=== PATIENT | female | born 1950 | race Caucasian/White ===

== ENCOUNTER → 2018-02-28 12:57 | Outpatient (CLI) | payer MEDICARE, OTHER, SELFPAY ==
--- NOTE | 2018-02-28 | DI.MG.S_ITS ---
BILATERAL DIGITAL SCREENING MAMMOGRAM 3D/2D WITH CAD: 02/28/2018 CLINICAL: Routine screening. Family history of breast cancer. Comparison is made to exams dated: 01/12/2017 mammogram, 12/11/2015 mammogram, and 11/20/2014 mammogram - [facility]. The tissue of both breasts is heterogeneously dense. This may lower the sensitivity of mammography. Current study was also evaluated with a Computer Aided Detection (CAD) system. No significant masses, calcifications, or other findings are seen in either breast. There has been no significant interval change. IMPRESSION: NEGATIVE There is no mammographic evidence of malignancy. A 1 year screening mammogram is recommended. This exam was interpreted at Station ID: [id number]. NOTE: For mammograms, a report in lay terms will be sent to the patient. Approximately 15% of breast malignancies will not be visualized mammographically. In the management of a palpable breast mass, a negative mammogram must not discourage biopsy of a clinically suspicious lesion. Electronically Signed By: Trae rodríguez/gretchen:02/28/2018 15:55:45 copy to: Dulce Maria Duarte letter sent: Normal Exam ACR BI-RADS Category 1: Negative [id number]
== END ==
PROVIDERS: Visit Provider Specialist
DX: Z12.31 Encounter for screening mammogram for malignant neoplasm of breast (principal); Z80.3 Family history of malignant neoplasm of breast
CPT/HCPCS: 77063; 77067

== ENCOUNTER 2018-09-27 15:15 | Outpatient (RCR) | payer MEDICARE, OTHER, SELFPAY ==
--- NOTE | 2018-07-07 15:48 | PT.OIE ---
Current Diagnoses Spondylolisthesis, lumbar region (07/07/18) Spinal stenosis, lumbar region with neurogenic claudication (07/07/18) Other intervertebral disc degeneration, lumbar region (07/07/18) Strain of muscle, fascia and tendon of lower back, subsequent encounter (07/07/18) Past Medical History (Last Updated 05/05/18 @ 13:32 by Shelly Barroso) Abnormally prolonged clotting time (Chronic) Arthritis (Chronic) Bradycardia (Chronic) Cardiac arrhythmia (Chronic ~1971) Complete AV block (Chronic) DDD (degenerative disc disease) (Chronic) Foot pain (Chronic) Lumbar spinal stenosis (Chronic) Macular degeneration (Chronic 1991) PSVT (paroxysmal supraventricular tachycardia) (Chronic) RLS (restless legs syndrome) (Chronic) SA node dysfunction (Chronic) Sinus bradycardia (Chronic) Stenosis of innominate vein (Chronic 2015) Stress incontinence (Chronic) Tinnitus (Chronic) Abnormal Pap smear of cervix (Resolved ~1999) Chicken pox (Resolved) Endometriosis (Resolved) Hemorrhoids (Resolved 1988) History of heavy periods (Resolved) Measles (Resolved) Metatarsal fracture (Resolved 1995) Mumps (Resolved) Painful menstrual periods (Resolved) Rupture of tympanic membrane (Resolved) Past Surgical History (Last Updated 05/05/18 @ 13:04 by Shelly Barroso) Anesthesia (Resolved) Elective replacement indicated for cardiac pacemaker battery at end of lifespan (Resolved 10/2015) Status post arthroscopy (Resolved) Status post laparoscopic cholecystectomy (Resolved 1997) Status post placement of cardiac pacemaker (Resolved 06/2010) Status post placement of implantable loop recorder (Resolved 11/2009) Status post removal of cervix (Resolved) Provider Visit Care Team Role Provider Type Reynold Herman MD Attending Provider Physician Specialty: Orthopedic Surgery Address: [address] [place] [address], [id number] Email: [email or web address] Physical Therapy Initial Evaluation PT-OP-A Visit Information Start: 07/07/18 14:43 Freq: Status: Active Protocol: Document 07/07/18 14:00 (Rec: 07/07/18 15:11 [email or web address]) Out-Patient Physical Therapy Visit Information Visit Information Visit Type Initial Evaluation Visit Start Time 14:00 Visit Stop Time 14:45 Total Visit Minutes 45 Evaluation Information Evaluation Date 07/07/18 PT-OP-B Current Condition Start: 07/07/18 14:43 Freq: Status: Active Protocol: Document 07/07/18 14:00 HH (Rec: 07/07/18 15:11 [email or web address]) Current Condition History of Current Condition Current Complaints Pt c/o chronic LBP and radiating pain to her B LE History of Current Condition Pt is s/p L45 interlaminar epidural steroid injection perfromed by for her chronic LBP on 05/19/18. She cont to c/o LBP 10/09 with distal radiation into B Le. She cannot alma rosa sitting more than 20 minutes without increased pain. Treatment Goals Patient/Caregiver Goals I am going to Pt for strength increase of thighs / arms and lower back I also have difficulty getting off from the floor Current Functional Impairments (Reported) Functional Limitations- Other Difficulty getting off from the floor PT-OP-C Subjective Start: 07/07/18 14:43 Freq: Status: Active Protocol: Document 07/07/18 14:00 (Rec: 07/07/18 15:46 [email or web address]) Patient Questionnaires Other Questionnaire Name and Score Patient did not complete Modified Mswestry LBP OP-PT Pain Assessment Location Bilateral Lower Back Intensity 3 Scale Used Numeric (1 - 10) Description Aching Dull Frequency Constant Radiating Location R leg and L calf Pain Aggravating Factors Sitting PT-OP-J Posture/Palpation/Skin Start: 07/07/18 14:43 Freq: Status: Active Protocol: Document 07/07/18 14:00 HH (Rec: 07/07/18 15:46 [email or web address]) Posture Evaluation Position Standing T-Spine Posture Increased Kyphosis L-Spine Posture Increased Lordosis Shoulder Posture (L) Rounded (R) Rounded Pelvis Posture Anteriorly Tilted Knee Posture (L) Genu Valgus (R) Genu Valgus (L) Ext. Tibial Torsion (R) Ext. Tibial Torsion PT-OP-K Range of Motion Start: 07/07/18 14:43 Freq: Status: Active Protocol: Document 07/07/18 14:00 HH (Rec: 07/07/18 15:11 [email or web address]) Lumbar Spine Range of Motion Lumbar Spine Percentage Testing Position Standing Flexion 50 Extension 75 Rotation Left 100 Rotation Right 100 Lateral Flexion Left 80 Lateral Flexion Right 80 Comments excessive angulations at L4-S1 during standing flexion significant loss of lumbar flexion during standing flexion. Pt demonstrates excessive compensatory hip hinge pattern and increase thoracic flexion during standing flexion. PT-OP-M Strength Start: 07/07/18 14:43 Freq: Status: Active Protocol: Document 07/07/18 14:00 (Rec: 07/07/18 15:11 [email or web address]) Trunk Strength Trunk Manual Muscle Testing Testing Position Sitting Flexion 3+ Fair+ Extension 4- Good- Hip Strength Hip Manual Muscle Testing Right Flexion (L2) 4- Good- Extension (S1) 4- Good- Abduction 4- Good- Adduction 5 Normal Left Flexion (L2) 4- Good- Extension (S1) 4- Good- Abduction 4- Good- Adduction 5 Normal PT-OP-Q Treatments Start: 07/07/18 14:43 Freq: Status: Active Protocol: Document 07/07/18 14:00 HH (Rec: 07/07/18 15:46 [email or web address]) Therapeutic Exercises Supine Exercises 1 Supine Exercise Name supine pelvic tilt with knee bent Side bilateral Reps/Minutes 10 Standing Exercises 2 Standing Exercise Name standing pelvic tilt Side bilateral Reps/Minutes 10 1 Standing Exercise Name standing trunk flexion against wall to emphasis on lumbar flexion Side bilateral Reps/Minutes 10 Other Exercises 1 Other Exercise Name quadruped cat camel Side bilateral Reps/Minutes 10 PT-OP-T Assessment and Plan Start: 07/07/18 14:43 Freq: Status: Active Protocol: Document 07/07/18 14:00 (Rec: 07/07/18 15:11 [email or web address]) Physical Therapy Assessment Rehab Potential Rehabilitation Potential Good Goals Two Impairment Decreased overall hip strength Short Term Goal (STG) Increase hip ext and abd by 1/ 2 MMT grade STG Duration 3 weeks Farm Worker Goal (LTG) Increase hip ext and abd by 1 full MMT grade LTG Duration 6 weeks One Impairment decreased lumbar ROM Short Term Goal (STG) Increase lumbar ROM by 20 % during standing flexion test. STG Duration 3 weeks Farm Worker Goal (LTG) increase lumbar ROM by 40% during standing flexion test LTG Duration 6 weeks Assessment Summary Assessment Pt is a 68 yo female who c/o chronic back pain along with radiating pain to B LE. Pt stated her symptoms get worse primarily after sitting for more than 20 minutes such as driving and watching TV on her couch. Pt received 2 epidural injections within the past year and the 2nd shot was not as helpful as the first shot. Upon assessment, Pt demonstrated a significant anterior pelvic tilt in standing position with significant excessive lumbar paraspinals activation. Pt also demonstrated diffculties performing pelvic tilt. Pt presented insufficient lumbar flexion who used excessive compensatory thoracic flexion and hip flexion during standing flexion. Pt was instructed to perform cat camel followed by abdominal brace with standing flexion against the wall. She was then able to engage lumbar flexion who also stated I feel a nice stretch at lower back and it feels good. Pt demosntrates an overall lack of lumbar neuromuscular control, ROM and strength. Physical Therapy Plan Frequency and Duration Frequency of Treatment 2x/Week Duration of Treatment 6 weeks Plan of Care Start Date 07/07/18 Plan of Care End Date 08/19/18 Therapeutic Interventions Therapeutic Interventions Home Exercise Program Joint Mobilizations Manual Therapy Neuromuscular Re-education Soft Tissue Mobilization Therapeutic Exercises Next Visit Focus/Plan Next Visit Plan hollow body hold Cat camel with weight ball on top of thoracic region to avoid thoracic movement post pelvic tilt followed by standing flexion with 5-10 lbs weight resisted hip abduction resisted hip extension
--- NOTE | 2018-07-12 18:36 | PT.OTN ---
Current Diagnoses Spondylolisthesis, lumbar region (07/12/18) Spinal stenosis, lumbar region with neurogenic claudication (07/12/18) Other intervertebral disc degeneration, lumbar region (07/12/18) Strain of muscle, fascia and tendon of lower back, subsequent encounter (07/12/18) Physical Therapy Treatment Note PT-OP-A Visit Information Start: 07/07/18 14:43 Freq: Status: Active Protocol: Document 07/12/18 13:45 HH (Rec: 07/12/18 18:34 [email or web address]) Out-Patient Physical Therapy Visit Information Visit Information Visit Type Treatment Note Visit Note Pt reports I felt really good on the day that i came to therapy. My back pain was very managed that day and I was able to sit and stand longer without c/o. However, my back starts hurting the day after and cat camel into extension aggravates my back pain sometimes. Standing flexion exercise does give me a good stretch at the lower back. I also feel my legs are getting tight from time to time. Visit Start Time 13:45 Visit Stop Time 14:30 Total Visit Minutes 45 Visit Number 2 Number of ELECTRICAL APPLIANCE SERVICER Visits 0 PT-OP-B Current Condition Start: 07/07/18 14:43 Freq: Status: Active Protocol: Document 07/07/18 14:00 HH (Rec: 07/07/18 15:11 HH [email or web address]) Current Condition History of Current Condition Current Complaints Pt c/o chronic LBP and radiating pain to her B LE History of Current Condition Pt is s/p L45 interlaminar epidural steroid injection perfromed by for her chronic LBP on 05/19/18. She cont to c/o LBP 10/09 with distal radiation into B Le. She cannot alma rosa sitting more than 20 minutes without increased pain. Treatment Goals Patient/Caregiver Goals I am going to Pt for strength increase of thighs / arms and lower back I also have difficulty getting off from the floor Current Functional Impairments (Reported) Functional Limitations- Other Difficulty getting off from the floor PT-OP-C Subjective Start: 07/07/18 14:43 Freq: Status: Active Protocol: Document 07/12/18 13:45 HH (Rec: 07/12/18 18:34 [email or web address]) OP-PT Pain Assessment Pain Assessment Grid Paper Pain Assessment Grid Completed No Location Bilateral Lower Back Intensity 4 Scale Used Numeric (1 - 10) Description Dull PT-OP-J Posture/Palpation/Skin Start: 07/07/18 14:43 Freq: Status: Active Protocol: Document 07/07/18 14:00 HH (Rec: 07/07/18 15:46 HH [email or web address]) Posture Evaluation Position Standing T-Spine Posture Increased Kyphosis L-Spine Posture Increased Lordosis Shoulder Posture (L) Rounded (R) Rounded Pelvis Posture Anteriorly Tilted Knee Posture (L) Genu Valgus (R) Genu Valgus (L) Ext. Tibial Torsion (R) Ext. Tibial Torsion PT-OP-K Range of Motion Start: 07/07/18 14:43 Freq: Status: Active Protocol: Document 07/07/18 14:00 HH (Rec: 07/07/18 15:11 HH [email or web address]) Lumbar Spine Range of Motion Lumbar Spine Percentage Testing Position Standing Flexion 50 Extension 75 Rotation Left 100 Rotation Right 100 Lateral Flexion Left 80 Lateral Flexion Right 80 Comments excessive angulations at L4-S1 during standing flexion significant loss of lumbar flexion during standing flexion. Pt demonstrates excessive compensatory hip hinge pattern and increase thoracic flexion during standing flexion. PT-OP-M Strength Start: 07/07/18 14:43 Freq: Status: Active Protocol: Document 07/07/18 14:00 HH (Rec: 07/07/18 15:11 [email or web address]) Trunk Strength Trunk Manual Muscle Testing Testing Position Sitting Flexion 3+ Fair+ Extension 4- Good- Hip Strength Hip Manual Muscle Testing Right Flexion (L2) 4- Good- Extension (S1) 4- Good- Abduction 4- Good- Adduction 5 Normal Left Flexion (L2) 4- Good- Extension (S1) 4- Good- Abduction 4- Good- Adduction 5 Normal PT-OP-Q Treatments Start: 07/07/18 14:43 Freq: Status: Active Protocol: Document 07/12/18 13:45 HH (Rec: 07/12/18 18:34 HH [email or web address]) Therapeutic Exercises Supine Exercises 2 Supine Exercise Name deadbug Reps/Minutes 5 secs hold Comments requires v.c to engage abdominal muscles. 1 Supine Exercise Name supine resisted hip abduction with B knee bent Side bilateral Standing Exercises 1 Standing Exercise Name standing lumbar flexion Comments requires v.c. to engage abdominal muscles Other Exercises 1 Other Exercise Name cat camel Comments neutral to lumbar flexion Neuro Re-Education Treatment Other Activities 1 Details seated resisted trunk extension Comments MET at painful range PT-OP-T Assessment and Plan Start: 07/07/18 14:43 Freq: Status: Active Protocol: Document 07/12/18 13:45 HH (Rec: 07/12/18 18:34 HH [email or web address]) Physical Therapy Assessment Progress Towards Goals Progress Towards Goals Progressing Toward Goals Assessment Summary Assessment Pt demonstrates improved lumbopelvic pelvic control by being able to perform standing pelvic tilt. However, pt reports symptoms tend to get worse with back extension. Pt is instructed to perform deadbug to improve trunk stabilization who requires constant v.c. and t.c. to engage abdominal muscles and initiate posterior pelvic tilt . pt also demonstrates significant difficulty engaging gluteal musculature for her new HEP (seated resisted hip abduction and supine hip abduction). Modification has made to use supine wide hip abduction with resistance band at B knee . This presentation possibly resulted from her chronic knock knee gait pattern along with internal rotated B hip, which inhibits B gluteal muscles activation during mobility. At the end of tx sessions, Pt reports decrease tightness of her B LEs during amb and decreased LBP during trunk movements. Physical Therapy Plan Next Visit Focus/Plan Next Note Type Treatment Note Next Visit Plan Cont trunk stabilization training hip ER, abd, ext therex. monitor pt's gluteal activation. hip stabilization training.
--- NOTE | 2018-07-14 18:17 | PT.OTN ---
Current Diagnoses Spondylolisthesis, lumbar region (07/14/18) Spinal stenosis, lumbar region with neurogenic claudication (07/14/18) Other intervertebral disc degeneration, lumbar region (07/14/18) Strain of muscle, fascia and tendon of lower back, subsequent encounter (07/14/18) Physical Therapy Treatment Note PT-OP-A Visit Information Start: 07/07/18 14:43 Freq: Status: Active Protocol: Document 07/14/18 16:00 HH (Rec: 07/14/18 18:17 [email or web address]) Out-Patient Physical Therapy Visit Information Visit Information Visit Type Treatment Note Visit Start Time 16:00 Visit Stop Time 16:45 Total Visit Minutes 45 Visit Number 3 Number of ARMHOLE BASTER HAND Visits 0 PT-OP-B Current Condition Start: 07/07/18 14:43 Freq: Status: Active Protocol: Document 07/07/18 14:00 HH (Rec: 07/07/18 15:11 [email or web address]) Current Condition History of Current Condition Current Complaints Pt c/o chronic LBP and radiating pain to her B LE History of Current Condition Pt is s/p L45 interlaminar epidural steroid injection perfromed by for her chronic LBP on 05/19/18. She cont to c/o LBP 10/09 with distal radiation into B Le. She cannot alma rosa sitting more than 20 minutes without increased pain. Treatment Goals Patient/Caregiver Goals I am going to Pt for strength increase of thighs / arms and lower back I also have difficulty getting off from the floor Current Functional Impairments (Reported) Functional Limitations- Other Difficulty getting off from the floor PT-OP-C Subjective Start: 07/07/18 14:43 Freq: Status: Active Protocol: Document 07/14/18 16:00 HH (Rec: 07/14/18 18:17 [email or web address]) OP-PT Subjective Patient Comments Patient Comments Pt reports I feel great since last vist and my back pain does not bother me. I've been doing all my exercises and aware of abdominal brace while standing for a long time. However, i have difficulty doing the supine hip abduction cause i couldnt get my hip muscles working like we did in the clinic. Patient Reported Progress Improving PT-OP-J Posture/Palpation/Skin Start: 07/07/18 14:43 Freq: Status: Active Protocol: Document 07/07/18 14:00 HH (Rec: 07/07/18 15:46 [email or web address]) Posture Evaluation Position Standing T-Spine Posture Increased Kyphosis L-Spine Posture Increased Lordosis Shoulder Posture (L) Rounded (R) Rounded Pelvis Posture Anteriorly Tilted Knee Posture (L) Genu Valgus (R) Genu Valgus (L) Ext. Tibial Torsion (R) Ext. Tibial Torsion PT-OP-K Range of Motion Start: 07/07/18 14:43 Freq: Status: Active Protocol: Document 07/07/18 14:00 HH (Rec: 07/07/18 15:11 [email or web address]) Lumbar Spine Range of Motion Lumbar Spine Percentage Testing Position Standing Flexion 50 Extension 75 Rotation Left 100 Rotation Right 100 Lateral Flexion Left 80 Lateral Flexion Right 80 Comments excessive angulations at L4-S1 during standing flexion significant loss of lumbar flexion during standing flexion. Pt demonstrates excessive compensatory hip hinge pattern and increase thoracic flexion during standing flexion. PT-OP-M Strength Start: 07/07/18 14:43 Freq: Status: Active Protocol: Document 07/07/18 14:00 (Rec: 07/07/18 15:11 [email or web address]) Trunk Strength Trunk Manual Muscle Testing Testing Position Sitting Flexion 3+ Fair+ Extension 4- Good- Hip Strength Hip Manual Muscle Testing Right Flexion (L2) 4- Good- Extension (S1) 4- Good- Abduction 4- Good- Adduction 5 Normal Left Flexion (L2) 4- Good- Extension (S1) 4- Good- Abduction 4- Good- Adduction 5 Normal PT-OP-Q Treatments Start: 07/07/18 14:43 Freq: Status: Active Protocol: Document 07/14/18 16:00 (Rec: 07/14/18 18:17 [email or web address]) Therapeutic Exercises Standing Exercises 3 Standing Exercise Name standing trunk flexion with DF Side bilateral Reps/Minutes 10 2 Standing Exercise Name bilateral hip ER with green band in standing Side bilateral Reps/Minutes 10 1 Standing Exercise Name R hip extension with abdominal brace Side right Reps/Minutes 10 Manual Therapy Treatment Soft Tissue Mobilization active release Body Location hip abductors Mobilization Type Cross-Friction Intensity/Depth Superficial Body Position Prone Comments with hip ER 1 Body Location B hip adductors Mobilization Type Cross-Friction Sustained Pressure Intensity/Depth Superficial Body Position Prone Comments Significant tenderness with pressure PT-OP-T Assessment and Plan Start: 07/07/18 14:43 Freq: Status: Active Protocol: Document 07/14/18 16:00 (Rec: 07/14/18 18:17 [email or web address]) Physical Therapy Assessment Progress Towards Goals Progress Towards Goals Progressing Toward Goals Assessment Summary Assessment Pt presents significant improved lumbo-pelvic control in standing position who is able to perform full range of pelvic tilt. pt also demonstrates improved curvature of lumbar flexion during trunk flexion. In addition, pt presents significant tenderness to pressure at bilateral hip adductors due to her knock knee posture which inhibits activation of hip stabilizers and overload her lumbar paraspinals. New HEP is given to pt including: standing R hip extension with abdominal brace, standing B hip ER with green band. Cont to POC to address pt's hip abductors weakness, decreased lumbar ROM control and postural malalignment Physical Therapy Plan Therapeutic Interventions Therapeutic Interventions Home Exercise Program Manual Therapy Neuromuscular Re-education Soft Tissue Mobilization Taping Therapeutic Exercises Next Visit Focus/Plan Next Note Type Treatment Note Next Visit Plan cont hip abductors strengthening neuro mohini on B hip ER control lumbar ROM lumbar iso hold/ isotonic strengthening.
--- NOTE | 2018-07-19 16:50 | PT.OTN ---
Current Diagnoses Spondylolisthesis, lumbar region (07/19/18) Spinal stenosis, lumbar region with neurogenic claudication (07/19/18) Other intervertebral disc degeneration, lumbar region (07/19/18) Strain of muscle, fascia and tendon of lower back, subsequent encounter (07/19/18) Physical Therapy Treatment Note PT-OP-A Visit Information Start: 07/07/18 14:43 Freq: Status: Active Protocol: Document 07/19/18 13:45 HH (Rec: 07/19/18 16:50 [email or web address]) Out-Patient Physical Therapy Visit Information Visit Information Visit Type Treatment Note Visit Start Time 13:45 Visit Stop Time 14:30 Total Visit Minutes 45 Visit Number 4 Number of SETTER UP Visits 0 PT-OP-B Current Condition Start: 07/07/18 14:43 Freq: Status: Active Protocol: Document 07/07/18 14:00 HH (Rec: 07/07/18 15:11 HH [email or web address]) Current Condition History of Current Condition Current Complaints Pt c/o chronic LBP and radiating pain to her B LE History of Current Condition Pt is s/p L45 interlaminar epidural steroid injection perfromed by for her chronic LBP on 05/19/18. She cont to c/o LBP 10/09 with distal radiation into B Le. She cannot alma rosa sitting more than 20 minutes without increased pain. Treatment Goals Patient/Caregiver Goals I am going to Pt for strength increase of thighs / arms and lower back I also have difficulty getting off from the floor Current Functional Impairments (Reported) Functional Limitations- Other Difficulty getting off from the floor PT-OP-C Subjective Start: 07/07/18 14:43 Freq: Status: Active Protocol: Document 07/19/18 13:45 HH (Rec: 07/19/18 16:50 [email or web address]) OP-PT Subjective Patient Comments Patient Comments Pt reports I felt great the past two weeks, my back and knee didnt bother me as much and i can sit longer than 20 minutes now. I've been doing all my exercises. However, my back pain gets worse during the weekend because i was sitting in the car for 4 hours a day. Patient Reported Progress Improving OP-PT Pain Assessment Location Bilateral Lower Back Intensity 2 Scale Used Numeric (1 - 10) Description Dull Frequency Intermittent Pain Aggravating Factors Sitting PT-OP-J Posture/Palpation/Skin Start: 07/07/18 14:43 Freq: Status: Active Protocol: Document 07/07/18 14:00 HH (Rec: 07/07/18 15:46 HH [email or web address]) Posture Evaluation Position Standing T-Spine Posture Increased Kyphosis L-Spine Posture Increased Lordosis Shoulder Posture (L) Rounded (R) Rounded Pelvis Posture Anteriorly Tilted Knee Posture (L) Genu Valgus (R) Genu Valgus (L) Ext. Tibial Torsion (R) Ext. Tibial Torsion PT-OP-K Range of Motion Start: 07/07/18 14:43 Freq: Status: Active Protocol: Document 07/07/18 14:00 HH (Rec: 07/07/18 15:11 HH [email or web address]) Lumbar Spine Range of Motion Lumbar Spine Percentage Testing Position Standing Flexion 50 Extension 75 Rotation Left 100 Rotation Right 100 Lateral Flexion Left 80 Lateral Flexion Right 80 Comments excessive angulations at L4-S1 during standing flexion significant loss of lumbar flexion during standing flexion. Pt demonstrates excessive compensatory hip hinge pattern and increase thoracic flexion during standing flexion. PT-OP-M Strength Start: 07/07/18 14:43 Freq: Status: Active Protocol: Document 07/07/18 14:00 HH (Rec: 07/07/18 15:11 [email or web address]) Trunk Strength Trunk Manual Muscle Testing Testing Position Sitting Flexion 3+ Fair+ Extension 4- Good- Hip Strength Hip Manual Muscle Testing Right Flexion (L2) 4- Good- Extension (S1) 4- Good- Abduction 4- Good- Adduction 5 Normal Left Flexion (L2) 4- Good- Extension (S1) 4- Good- Abduction 4- Good- Adduction 5 Normal PT-OP-Q Treatments Start: 07/07/18 14:43 Freq: Status: Active Protocol: Document 07/19/18 13:45 (Rec: 07/19/18 16:50 [email or web address]) Therapeutic Exercises Prone Exercises 1 Prone Exercise Name child pose with hip abduction Side bilateral Reps/Minutes 4 Comments with abdominal brace Standing Exercises 4 Standing Exercise Name crab walk Side bilateral Resistance green band Reps/Minutes 50 feet Comments focus on hip ER and Abd 2 Standing Exercise Name standing pelvic tilt Side bilateral Reps/Minutes 2 1 Standing Exercise Name standing lumbar flexion Side bilateral Equipment Used 7 lbs dumbbell Reps/Minutes 5 Comments v.c. for abdominal brace Manual Therapy Treatment Soft Tissue Mobilization 1 Body Location B hip adductors Mobilization Type Cross-Friction Sustained Pressure Intensity/Depth Superficial Body Position Supine Comments Significant tenderness with pressure PT-OP-T Assessment and Plan Start: 07/07/18 14:43 Freq: Status: Active Protocol: Document 07/19/18 13:45 HH (Rec: 07/19/18 16:50 HH [email or web address]) Physical Therapy Assessment Progress Towards Goals Progress Towards Goals Progressing Toward Goals Progress Comments pt compliant to HEP and presents improved lumbar segmental control with reduced pain. Assessment Summary Assessment Pt is compliant to HEP and demonstrates improved lumbar segmental control during trunk flexion and pelvic tilt along with reduced pain. Pt also reports reduced tenderness at B hip adductors with pressure. New HEP is given to facilitate hip ER and abd during amb, along with trunk flexion with 8lbs dumbbell to increase lumbar segmental mobility. Cont POC with hip abd strengthen, lengthening of hip adductors and increase lumbar motor control. Physical Therapy Plan Therapeutic Interventions Therapeutic Interventions Home Exercise Program Manual Therapy Neuromuscular Re-education Soft Tissue Mobilization Taping Therapeutic Exercises Next Visit Focus/Plan Next Note Type Treatment Note Next Visit Plan cont hip abductors strengthening abdominal strengthening neuro mohini on B hip ER control lumbar ROM lumbar iso hold/ isotonic strengthening.
--- NOTE | 2018-07-21 15:30 | PT.OTN ---
Current Diagnoses Spondylolisthesis, lumbar region (07/21/18) Spinal stenosis, lumbar region with neurogenic claudication (07/21/18) Other intervertebral disc degeneration, lumbar region (07/21/18) Strain of muscle, fascia and tendon of lower back, subsequent encounter (07/21/18) Physical Therapy Treatment Note PT-OP-A Visit Information Start: 07/07/18 14:43 Freq: Status: Active Protocol: Document 07/21/18 13:45 HH (Rec: 07/21/18 15:30 HH [email or web address]) Out-Patient Physical Therapy Visit Information Visit Information Visit Type Treatment Note Visit Start Time 13:45 Visit Stop Time 14:30 Total Visit Minutes 45 Visit Number 5 Number of PROP AND SCENERY MAKER Visits 0 PT-OP-B Current Condition Start: 07/07/18 14:43 Freq: Status: Active Protocol: Document 07/07/18 14:00 HH (Rec: 07/07/18 15:11 HH [email or web address]) Current Condition History of Current Condition Current Complaints Pt c/o chronic LBP and radiating pain to her B LE History of Current Condition Pt is s/p L45 interlaminar epidural steroid injection perfromed by for her chronic LBP on 05/19/18. She cont to c/o LBP 10/09 with distal radiation into B Le. She cannot alma rosa sitting more than 20 minutes without increased pain. Treatment Goals Patient/Caregiver Goals I am going to Pt for strength increase of thighs / arms and lower back I also have difficulty getting off from the floor Current Functional Impairments (Reported) Functional Limitations- Other Difficulty getting off from the floor PT-OP-C Subjective Start: 07/07/18 14:43 Freq: Status: Active Protocol: Document 07/21/18 13:45 HH (Rec: 07/21/18 15:30 HH [email or web address]) OP-PT Subjective Patient Comments Patient Comments Pt states I feel really lately and I dont have any back pain and I've been doing all my HEP. My knee pain has been getting a lot better too. Patient Reported Progress Improving PT-OP-J Posture/Palpation/Skin Start: 07/07/18 14:43 Freq: Status: Active Protocol: Document 07/07/18 14:00 HH (Rec: 07/07/18 15:46 HH [email or web address]) Posture Evaluation Position Standing T-Spine Posture Increased Kyphosis L-Spine Posture Increased Lordosis Shoulder Posture (L) Rounded (R) Rounded Pelvis Posture Anteriorly Tilted Knee Posture (L) Genu Valgus (R) Genu Valgus (L) Ext. Tibial Torsion (R) Ext. Tibial Torsion PT-OP-K Range of Motion Start: 07/07/18 14:43 Freq: Status: Active Protocol: Document 07/07/18 14:00 HH (Rec: 07/07/18 15:11 HH [email or web address]) Lumbar Spine Range of Motion Lumbar Spine Percentage Testing Position Standing Flexion 50 Extension 75 Rotation Left 100 Rotation Right 100 Lateral Flexion Left 80 Lateral Flexion Right 80 Comments excessive angulations at L4-S1 during standing flexion significant loss of lumbar flexion during standing flexion. Pt demonstrates excessive compensatory hip hinge pattern and increase thoracic flexion during standing flexion. PT-OP-M Strength Start: 07/07/18 14:43 Freq: Status: Active Protocol: Document 07/07/18 14:00 HH (Rec: 07/07/18 15:11 HH [email or web address]) Trunk Strength Trunk Manual Muscle Testing Testing Position Sitting Flexion 3+ Fair+ Extension 4- Good- Hip Strength Hip Manual Muscle Testing Right Flexion (L2) 4- Good- Extension (S1) 4- Good- Abduction 4- Good- Adduction 5 Normal Left Flexion (L2) 4- Good- Extension (S1) 4- Good- Abduction 4- Good- Adduction 5 Normal PT-OP-Q Treatments Start: 07/07/18 14:43 Freq: Status: Active Protocol: Document 07/21/18 13:45 HH (Rec: 07/21/18 15:30 HH [email or web address]) Therapeutic Exercises Sitting Exercises seated scifi press Resistance level 1 Reps/Minutes 5 mins Comments cues for neutral foot placement seated hip abduction machine Resistance 30 lbs Equipment Used machine Reps/Minutes 5 mins Standing Exercises standing resisted hip extension Side bilateral Resistance manual resistance Reps/Minutes 5 mins 4 Standing Exercise Name crab walk Side bilateral Resistance green band Reps/Minutes 50 feet Comments focus on hip ER and Abd Manual Therapy Treatment Soft Tissue Mobilization tibial IR with hip ER Body Location movement with mobilizatoins Body Position Supine Comments active hip ER with manual tibial IR active release Body Location hip adductors Mobilization Type Cross-Friction Intensity/Depth Moderate Body Position Supine PT-OP-T Assessment and Plan Start: 07/07/18 14:43 Freq: Status: Active Protocol: Document 07/21/18 13:45 HH (Rec: 07/21/18 15:30 HH [email or web address]) Physical Therapy Assessment Progress Towards Goals Progress Towards Goals Progressing Toward Goals Assessment Summary Assessment Pt presents to clinic with no c/o LBP and reduced bilateral knee pain. Pt compliant to HEP . During tx session, pt cont demonstrates difficulty engaging gluteal muscles during squating, resisted hip ER. Pt reports increased gluteal activation during standing resisted hip extension. Pt also requires constant cues to facilitate hip ER during therex (to prevent knock knee). Introduced scifi leg press for overall LE strengthening today. Physical Therapy Plan Next Visit Focus/Plan Next Note Type Treatment Note Next Visit Plan Cont hip abd and ER strengthening, STM at bilateral hip adductors, NM mohini on hip ER and tibial IR. aerobic training
--- NOTE | 2018-07-28 15:47 | PT.OTN ---
Current Diagnoses Spondylolisthesis, lumbar region (07/28/18) Spinal stenosis, lumbar region with neurogenic claudication (07/28/18) Other intervertebral disc degeneration, lumbar region (07/28/18) Strain of muscle, fascia and tendon of lower back, subsequent encounter (07/28/18) Physical Therapy Treatment Note PT-OP-A Visit Information Start: 07/07/18 14:43 Freq: Status: Active Protocol: Document 07/28/18 15:36 HH (Rec: 07/28/18 15:46 [email or web address]) Out-Patient Physical Therapy Visit Information Visit Information Visit Type Treatment Note Visit Start Time 13:45 Visit Stop Time 14:30 Total Visit Minutes 45 Visit Number 6 Number of WIRE SPOOLER Visits 0 PT-OP-B Current Condition Start: 07/07/18 14:43 Freq: Status: Active Protocol: Document 07/07/18 14:00 HH (Rec: 07/07/18 15:11 HH [email or web address]) Current Condition History of Current Condition Current Complaints Pt c/o chronic LBP and radiating pain to her B LE History of Current Condition Pt is s/p L45 interlaminar epidural steroid injection perfromed by for her chronic LBP on 05/19/18. She cont to c/o LBP 10/09 with distal radiation into B Le. She cannot alma rosa sitting more than 20 minutes without increased pain. Treatment Goals Patient/Caregiver Goals I am going to Pt for strength increase of thighs / arms and lower back I also have difficulty getting off from the floor Current Functional Impairments (Reported) Functional Limitations- Other Difficulty getting off from the floor PT-OP-C Subjective Start: 07/07/18 14:43 Freq: Status: Active Protocol: Document 07/28/18 15:36 HH (Rec: 07/28/18 15:46 HH [email or web address]) OP-PT Subjective Patient Comments Patient Comments Pt reports she does not have any back pain lately and she is able to touch the floor with her hands without any aggravation. Pt is satisfied with her current trunk control and mobility. Pt is compliant to HEP. Patient Reported Progress Improving PT-OP-J Posture/Palpation/Skin Start: 07/07/18 14:43 Freq: Status: Active Protocol: Document 07/07/18 14:00 HH (Rec: 07/07/18 15:46 HH [email or web address]) Posture Evaluation Position Standing T-Spine Posture Increased Kyphosis L-Spine Posture Increased Lordosis Shoulder Posture (L) Rounded (R) Rounded Pelvis Posture Anteriorly Tilted Knee Posture (L) Genu Valgus (R) Genu Valgus (L) Ext. Tibial Torsion (R) Ext. Tibial Torsion PT-OP-K Range of Motion Start: 07/07/18 14:43 Freq: Status: Active Protocol: Document 07/07/18 14:00 HH (Rec: 07/07/18 15:11 HH [email or web address]) Lumbar Spine Range of Motion Lumbar Spine Percentage Testing Position Standing Flexion 50 Extension 75 Rotation Left 100 Rotation Right 100 Lateral Flexion Left 80 Lateral Flexion Right 80 Comments excessive angulations at L4-S1 during standing flexion significant loss of lumbar flexion during standing flexion. Pt demonstrates excessive compensatory hip hinge pattern and increase thoracic flexion during standing flexion. PT-OP-M Strength Start: 07/07/18 14:43 Freq: Status: Active Protocol: Document 07/07/18 14:00 HH (Rec: 07/07/18 15:11 [email or web address]) Trunk Strength Trunk Manual Muscle Testing Testing Position Sitting Flexion 3+ Fair+ Extension 4- Good- Hip Strength Hip Manual Muscle Testing Right Flexion (L2) 4- Good- Extension (S1) 4- Good- Abduction 4- Good- Adduction 5 Normal Left Flexion (L2) 4- Good- Extension (S1) 4- Good- Abduction 4- Good- Adduction 5 Normal PT-OP-Q Treatments Start: 07/07/18 14:43 Freq: Status: Active Protocol: Document 07/28/18 15:36 HH (Rec: 07/28/18 15:46 [email or web address]) Therapeutic Exercises Sitting Exercises seated hip abduction machine Resistance 30 lbs Equipment Used machine Reps/Minutes 8 times Standing Exercises isometric hold for low back Standing Exercise Name 10 lbs ball away from body Reps/Minutes 3 secs hold on top x 8 reps x 2 Comments athletic position with B shoulder flexion with 10 lbs deadlift Standing Exercise Name deadlift Resistance 20 lbs dumbbell Reps/Minutes 8 times x 3 rounds Comments deadlift from 5 inch box to full extension crab walk with green band on knees Resistance green band at knees Comments 20 feet x 4 Manual Therapy Treatment Soft Tissue Mobilization active release Body Location hip adductors Mobilization Type Cross-Friction Intensity/Depth Moderate Body Position Supine PT-OP-T Assessment and Plan Start: 07/07/18 14:43 Freq: Status: Active Protocol: Document 07/28/18 13:45 HH (Rec: 07/28/18 15:46 HH [email or web address]) Physical Therapy Assessment Progress Towards Goals Progress Towards Goals Progressing Toward Goals Progress Comments pt compliant to HEP and presents improved lumbar segmental control without pain . Assessment Summary Assessment Pt progress very well with PT who presents significant improvements in lumbar segmental control and B hip abductors strength. pt is currently compliant to all HEP and aware of her posture during functional activities. Pt demonstrates good understanding of pelvic position and improved engagement of gluteal muscles today. Progress to lumbo- pelvic strengthening therex with functional activities. Physical Therapy Plan Therapeutic Interventions Therapeutic Interventions Home Exercise Program Manual Therapy Neuromuscular Re-education Soft Tissue Mobilization Taping Therapeutic Exercises Next Visit Focus/Plan Next Note Type Treatment Note Next Visit Plan progress to lumbopelvic strengthening ex as alma rosa with functional activities ( deadlift, front squat, box squat, weighted object carry) add cardio training as alma rosa
--- NOTE | 2018-08-04 15:19 | PT.OTN ---
Current Diagnoses Spondylolisthesis, lumbar region (08/04/18) Spinal stenosis, lumbar region with neurogenic claudication (08/04/18) Other intervertebral disc degeneration, lumbar region (08/04/18) Strain of muscle, fascia and tendon of lower back, subsequent encounter (08/04/18) Physical Therapy Treatment Note PT-OP-A Visit Information Start: 07/07/18 14:43 Freq: Status: Active Protocol: Document 08/04/18 13:45 HH (Rec: 08/04/18 15:18 HH [email or web address]) Out-Patient Physical Therapy Visit Information Visit Information Visit Type Treatment Note Visit Start Time 13:45 Visit Stop Time 14:30 Total Visit Minutes 45 Visit Number 7 Number of SIGNALS INTELLIGENCE ANALYST Visits 0 PT-OP-B Current Condition Start: 07/07/18 14:43 Freq: Status: Active Protocol: Document 07/07/18 14:00 HH (Rec: 07/07/18 15:11 HH [email or web address]) Current Condition History of Current Condition Current Complaints Pt c/o chronic LBP and radiating pain to her B LE History of Current Condition Pt is s/p L45 interlaminar epidural steroid injection perfromed by for her chronic LBP on 05/19/18. She cont to c/o LBP 10/09 with distal radiation into B Le. She cannot alma rosa sitting more than 20 minutes without increased pain. Treatment Goals Patient/Caregiver Goals I am going to Pt for strength increase of thighs / arms and lower back I also have difficulty getting off from the floor Current Functional Impairments (Reported) Functional Limitations- Other Difficulty getting off from the floor PT-OP-C Subjective Start: 07/07/18 14:43 Freq: Status: Active Protocol: Document 08/04/18 13:45 HH (Rec: 08/04/18 15:18 HH [email or web address]) OP-PT Subjective Patient Comments Patient Comments Pt denies pain with trunk ROM and LE strengthening exercise. my legs are getting stronger and stair climbing is getting easier for my knees. However, bend over iso trunk hold with 10lbs is hard for me and caused a little pain at my back. Patient Reported Progress Improving PT-OP-J Posture/Palpation/Skin Start: 07/07/18 14:43 Freq: Status: Active Protocol: Document 07/07/18 14:00 HH (Rec: 07/07/18 15:46 HH [email or web address]) Posture Evaluation Position Standing T-Spine Posture Increased Kyphosis L-Spine Posture Increased Lordosis Shoulder Posture (L) Rounded (R) Rounded Pelvis Posture Anteriorly Tilted Knee Posture (L) Genu Valgus (R) Genu Valgus (L) Ext. Tibial Torsion (R) Ext. Tibial Torsion PT-OP-K Range of Motion Start: 07/07/18 14:43 Freq: Status: Active Protocol: Document 07/07/18 14:00 (Rec: 07/07/18 15:11 [email or web address]) Lumbar Spine Range of Motion Lumbar Spine Percentage Testing Position Standing Flexion 50 Extension 75 Rotation Left 100 Rotation Right 100 Lateral Flexion Left 80 Lateral Flexion Right 80 Comments excessive angulations at L4-S1 during standing flexion significant loss of lumbar flexion during standing flexion. Pt demonstrates excessive compensatory hip hinge pattern and increase thoracic flexion during standing flexion. PT-OP-M Strength Start: 07/07/18 14:43 Freq: Status: Active Protocol: Document 07/07/18 14:00 (Rec: 07/07/18 15:11 [email or web address]) Trunk Strength Trunk Manual Muscle Testing Testing Position Sitting Flexion 3+ Fair+ Extension 4- Good- Hip Strength Hip Manual Muscle Testing Right Flexion (L2) 4- Good- Extension (S1) 4- Good- Abduction 4- Good- Adduction 5 Normal Left Flexion (L2) 4- Good- Extension (S1) 4- Good- Abduction 4- Good- Adduction 5 Normal PT-OP-Q Treatments Start: 07/07/18 14:43 Freq: Status: Active Protocol: Document 08/04/18 13:45 (Rec: 08/04/18 15:18 [email or web address]) Therapeutic Exercises Sitting Exercises seated hip abduction machine Resistance 30 lbs Reps/Minutes 8 times Comments iso hold at end range Standing Exercises deadlift Standing Exercise Name deadlift Resistance 15 lbs Reps/Minutes 8 times x 3 rounds Comments [facility] Standing Exercise Name standing hip hinge against wall with 10 lbs weight Equipment Used 10 lbs ball Comments hold ball in front of the chest 1 Standing Exercise Name standing lumbar flexion Side bilateral Equipment Used 10 lbs Reps/Minutes 8 reps Comments v.c. for abdominal brace Manual Therapy Treatment Soft Tissue Mobilization IASTM Mobilization Type Instrument Assisted Intensity/Depth Superficial Body Position Supine Comments proximal stroke from B knee joint towards hip tibial IR with hip ER Body Location movement with mobilizatoins Body Position Supine Comments active hip ER with manual tibial IR active release Body Location hip adductors Mobilization Type Cross-Friction Intensity/Depth Moderate Body Position Supine PT-OP-T Assessment and Plan Start: 07/07/18 14:43 Freq: Status: Active Protocol: Document 08/04/18 13:45 HH (Rec: 08/04/18 15:18 HH [email or web address]) Physical Therapy Assessment Progress Towards Goals Progress Towards Goals Progressing Toward Goals Assessment Summary Assessment Pt reports she has this swelling sensation at her both knees for years. Proximal stroke STM from knee joint to hip is given today and pt states instant relief after tx session. Pt progress very well with PT with improvements in lumbar segmental control, B hip abductors strength and understanding of postural alingments and lifting mechanics. Replace HEP bend over trunk flexion hold with 10lbs with deadlift 10lbs from floor. cont POC to improve active hip ER, lumbar muscles strengthening Physical Therapy Plan Therapeutic Interventions Therapeutic Interventions Home Exercise Program Manual Therapy Neuromuscular Re-education Soft Tissue Mobilization Taping Therapeutic Exercises Next Visit Focus/Plan Next Note Type Treatment Note Next Visit Plan Reassess knee swelling. active hip ER and hip abd strengthening exercises, lumbar muscles strengthening such as deadlift
--- NOTE | 2018-08-09 15:01 | PT.OTN ---
Current Diagnoses Spondylolisthesis, lumbar region (08/09/18) Spinal stenosis, lumbar region with neurogenic claudication (08/09/18) Other intervertebral disc degeneration, lumbar region (08/09/18) Strain of muscle, fascia and tendon of lower back, subsequent encounter (08/09/18) Physical Therapy Treatment Note PT-OP-A Visit Information Start: 07/07/18 14:43 Freq: Status: Active Protocol: Document 08/09/18 13:45 HH (Rec: 08/09/18 15:01 [email or web address]) Out-Patient Physical Therapy Visit Information Visit Information Visit Type Treatment Note Visit Start Time 13:45 Visit Stop Time 14:30 Total Visit Minutes 45 Visit Number 8 Number of GOLF CART MAKER Visits 0 PT-OP-B Current Condition Start: 07/07/18 14:43 Freq: Status: Active Protocol: Document 07/07/18 14:00 HH (Rec: 07/07/18 15:11 [email or web address]) Current Condition History of Current Condition Current Complaints Pt c/o chronic LBP and radiating pain to her B LE History of Current Condition Pt is s/p L45 interlaminar epidural steroid injection perfromed by for her chronic LBP on 05/19/18. She cont to c/o LBP 10/09 with distal radiation into B Le. She cannot alma rosa sitting more than 20 minutes without increased pain. Treatment Goals Patient/Caregiver Goals I am going to Pt for strength increase of thighs / arms and lower back I also have difficulty getting off from the floor Current Functional Impairments (Reported) Functional Limitations- Other Difficulty getting off from the floor PT-OP-C Subjective Start: 07/07/18 14:43 Freq: Status: Active Protocol: Document 08/09/18 13:45 HH (Rec: 08/09/18 15:01 [email or web address]) OP-PT Subjective Patient Comments Patient Comments Pt states my back was really painful and soreness since last Wednesday after playing a ball throw and catch game standing with one leg with my family. I did my exercise on and Wed and i did not have back pain. I couldnt bend over to touch my toes since Wednesday. Patient Reported Progress Same OP-PT Pain Assessment Location Bilateral Lower Back Pain Location Details L paraspinals and L buttock Intensity 5 Scale Used Numeric (1 - 10) Description Aching Pain Aggravating Factors Bending Pain Alleviating Factors Inactivity PT-OP-J Posture/Palpation/Skin Start: 07/07/18 14:43 Freq: Status: Active Protocol: Document 07/07/18 14:00 (Rec: 07/07/18 15:46 HH [email or web address]) Posture Evaluation Position Standing T-Spine Posture Increased Kyphosis L-Spine Posture Increased Lordosis Shoulder Posture (L) Rounded (R) Rounded Pelvis Posture Anteriorly Tilted Knee Posture (L) Genu Valgus (R) Genu Valgus (L) Ext. Tibial Torsion (R) Ext. Tibial Torsion PT-OP-K Range of Motion Start: 07/07/18 14:43 Freq: Status: Active Protocol: Document 07/07/18 14:00 HH (Rec: 07/07/18 15:11 HH [email or web address]) Lumbar Spine Range of Motion Lumbar Spine Percentage Testing Position Standing Flexion 50 Extension 75 Rotation Left 100 Rotation Right 100 Lateral Flexion Left 80 Lateral Flexion Right 80 Comments excessive angulations at L4-S1 during standing flexion significant loss of lumbar flexion during standing flexion. Pt demonstrates excessive compensatory hip hinge pattern and increase thoracic flexion during standing flexion. PT-OP-M Strength Start: 07/07/18 14:43 Freq: Status: Active Protocol: Document 07/07/18 14:00 (Rec: 07/07/18 15:11 [email or web address]) Trunk Strength Trunk Manual Muscle Testing Testing Position Sitting Flexion 3+ Fair+ Extension 4- Good- Hip Strength Hip Manual Muscle Testing Right Flexion (L2) 4- Good- Extension (S1) 4- Good- Abduction 4- Good- Adduction 5 Normal Left Flexion (L2) 4- Good- Extension (S1) 4- Good- Abduction 4- Good- Adduction 5 Normal PT-OP-Q Treatments Start: 07/07/18 14:43 Freq: Status: Active Protocol: Document 08/09/18 13:45 HH (Rec: 08/09/18 15:01 [email or web address]) Therapeutic Exercises Sitting Exercises Seated pelvic til seated on therapy ball Sitting Exercise Name on therapy ball Resistance BW Reps/Minutes 10 Comments knee extended plus cervical flexion extension Seated pelvic tilt Sitting Exercise Name on table Resistance BW Reps/Minutes 10 Comments knee extended plus cervical flexion and extension Standing Exercises isometric hold for low back Standing Exercise Name no weight Reps/Minutes 3 secs hold 1 Standing Exercise Name standing lumbar flexion Side bilateral Equipment Used no weight Reps/Minutes 8 reps Comments reach to knee caps Manual Therapy Treatment Soft Tissue Mobilization L paraspinals and gluteal max Mobilization Type Cross-Friction Trigger Point Release Intensity/Depth Moderate Body Position Prone IASTM Mobilization Type Instrument Assisted Intensity/Depth Superficial Body Position Supine Comments proximal stroke from B knee joint towards hip tibial IR with hip ER Body Location movement with mobilizatoins Body Position Supine Comments active hip ER with manual tibial IR Nerve Glides 1 Nerve seated posterior nerve glide Body Position Sitting Reps/Duration 5 mins Comments overall posterior nerve glide with head movements in seated position and B knee extended PT-OP-T Assessment and Plan Start: 07/07/18 14:43 Freq: Status: Active Protocol: Document 08/09/18 13:45 (Rec: 08/09/18 15:01 [email or web address]) Physical Therapy Assessment Progress Towards Goals Progress Towards Goals Slow Progress - Other Progress Comments exacerbation from group tasneem last . Assessment Summary Assessment Pt c/o increased LBP since last Wednesday after a ball throwing and catching game with SLS with her family. Pt reports she was not able to touch her knees since then due to LBP 5/10. Pt reports she was standing on one foot with trunk extension during the game which possibly increased pressure at spinal nerve roots and surrounding musculature. Pt presents reduced overall lumbar segmental mobility and fear of movements. Education is given on self care HEP to regain segment angela control through pelvic tilt and nerve glide. Pt is able to reach over upper tibial shaft after tx session and reduced LBP to 3/10. Recommended pt to rest tonight and perform pelvic tilt as tolerated. Physical Therapy Plan Next Visit Focus/Plan Next Note Type Treatment Note Next Visit Plan Reassess pt's pain level and lumbar segmental control. progress to deadlift, front squat trunk stability exercises as alma rosa B hip ER and abd strengthening
--- NOTE | 2018-08-11 15:08 | PT.OPPN ---
Current Diagnoses Spondylolisthesis, lumbar region (08/11/18) Spinal stenosis, lumbar region with neurogenic claudication (08/11/18) Other intervertebral disc degeneration, lumbar region (08/11/18) Strain of muscle, fascia and tendon of lower back, subsequent encounter (08/11/18) Physical Therapy Progress Note PT-OP-A Visit Information Start: 07/07/18 14:43 Freq: Status: Active Protocol: Document 08/11/18 13:45 HH (Rec: 08/11/18 14:47 HH [email or web address]) Out-Patient Physical Therapy Visit Information Visit Information Visit Type Progress Note Visit Start Time 13:40 Visit Stop Time 14:33 Total Visit Minutes 53 Visit Number 9 Number of LOCOMOTIVE FIRER Visits 0 PT-OP-B Current Condition Start: 07/07/18 14:43 Freq: Status: Active Protocol: Document 07/07/18 14:00 HH (Rec: 07/07/18 15:11 HH [email or web address]) Current Condition History of Current Condition Current Complaints Pt c/o chronic LBP and radiating pain to her B LE History of Current Condition Pt is s/p L45 interlaminar epidural steroid injection perfromed by for her chronic LBP on 05/19/18. She cont to c/o LBP 10/09 with distal radiation into B Le. She cannot alma rosa sitting more than 20 minutes without increased pain. Treatment Goals Patient/Caregiver Goals I am going to Pt for strength increase of thighs / arms and lower back I also have difficulty getting off from the floor Current Functional Impairments (Reported) Functional Limitations- Other Difficulty getting off from the floor PT-OP-C Subjective Start: 07/07/18 14:43 Freq: Status: Active Protocol: Document 08/11/18 13:45 HH (Rec: 08/11/18 14:47 HH [email or web address]) OP-PT Subjective Patient Comments Patient Comments Pt states My back felt really good since last visit. I am able to touch my toes again. My stair climbing is getting better that i dont have to do side step during descending anymore. Patient Reported Progress Improving PT-OP-J Posture/Palpation/Skin Start: 07/07/18 14:43 Freq: Status: Active Protocol: Document 07/07/18 14:00 HH (Rec: 07/07/18 15:46 HH [email or web address]) Posture Evaluation Position Standing T-Spine Posture Increased Kyphosis L-Spine Posture Increased Lordosis Shoulder Posture (L) Rounded (R) Rounded Pelvis Posture Anteriorly Tilted Knee Posture (L) Genu Valgus (R) Genu Valgus (L) Ext. Tibial Torsion (R) Ext. Tibial Torsion PT-OP-K Range of Motion Start: 07/07/18 14:43 Freq: Status: Active Protocol: Document 07/07/18 14:00 HH (Rec: 07/07/18 15:11 HH [email or web address]) Lumbar Spine Range of Motion Lumbar Spine Percentage Testing Position Standing Flexion 50 Extension 75 Rotation Left 100 Rotation Right 100 Lateral Flexion Left 80 Lateral Flexion Right 80 Comments excessive angulations at L4-S1 during standing flexion significant loss of lumbar flexion during standing flexion. Pt demonstrates excessive compensatory hip hinge pattern and increase thoracic flexion during standing flexion. PT-OP-K Range of Motion Start: 07/07/18 14:45 Freq: Status: Active Protocol: Document 08/11/18 13:45 HH (Rec: 08/11/18 14:53 [email or web address]) Lumbar Spine Range of Motion Lumbar Spine Percentage Testing Position Standing Flexion 75 Extension 75 Rotation Left 100 Rotation Right 100 Lateral Flexion Left 90 Lateral Flexion Right 90 Comments significant improvements with segmental lumbar flexion without symptoms. However, pt requires mod cues to engage lumbar flexion instead of hip flexion. Pt is able to indentify hip hinge pattern vs lumbar flexion pattern PT-OP-M Strength Start: 07/07/18 14:43 Freq: Status: Active Protocol: Document 08/11/18 13:45 HH (Rec: 08/11/18 14:53 [email or web address]) Hip Strength Hip Manual Muscle Testing Right Flexion (L2) 4+ Good+ Extension (S1) 4+ Good+ Abduction 4+ Good+ Adduction 5 Normal Left Flexion (L2) 4+ Good+ Extension (S1) 4+ Good+ Abduction 4+ Good+ Adduction 5 Normal Knee Strength Knee Manual Muscle Testing Right Flexion (S2) 4+ Good+ Extension (L3) 4 Good Left Flexion (S2) 4+ Good+ Extension (L3) 4 Good PT-OP-T Assessment and Plan Start: 07/07/18 14:43 Freq: Status: Active Protocol: Document 08/11/18 13:45 HH (Rec: 08/11/18 14:47 [email or web address]) Physical Therapy Assessment Goals Three Impairment bodymechanics Short Term Goal (STG) understanding importance of lumbar segmental control and muscle strength to improve lifting mechanics without using knee dominant pattern. STG Duration 4 weeks Two Impairment B hip strength Short Term Goal (STG) to increase 1/2 MMT grade for B hip abd STG Duration 4 weeks One Impairment ROM Short Term Goal (STG) to increase overall lumbar flexion by 20 % to prevent excessive compensation from hip and upper back during lowering activities STG Duration 4 weeks Progress Towards Goals Progress Towards Goals Progressing Toward Goals Assessment Summary Assessment Pt reports significant improvements in segmental control and reduction in back pain since initial evaluation. Pt is satisfied with her current rehab progress and expect to cont therapy for overall strengthening for her lower back. pt also states her chronic bilateral knee pain improve significantly with less pain and increase ROM. Pt is now able to negotiate stair with step through pattern instead of laterally. Pt also presents improved knock knee posture along with increased overall hip abductors and extensors control. Pt's hands are now able to touch the floor again since last episode of LBP from Wednesday. NEW HEP given with deadlift with object, weighted lumbar flexion, hollow hold, front squat and hip bridge with external rotation. Physical Therapy Plan Next Visit Focus/Plan Next Note Type Treatment Note Next Visit Plan PA at 10th reassess HEP check lumbar ROM, B hip strength cont lumbar strengthening exer , progress as alma rosa single leg balance with ball hold, paloff press hip abd strengthening
--- NOTE | 2018-08-11 15:10 | PT.OTN ---
Current Diagnoses Spondylolisthesis, lumbar region (08/11/18) Spinal stenosis, lumbar region with neurogenic claudication (08/11/18) Other intervertebral disc degeneration, lumbar region (08/11/18) Strain of muscle, fascia and tendon of lower back, subsequent encounter (08/11/18) Physical Therapy Treatment Note PT-OP-A Visit Information Start: 07/07/18 14:43 Freq: Status: Active Protocol: Document 08/11/18 13:45 HH (Rec: 08/11/18 14:47 HH [email or web address]) Out-Patient Physical Therapy Visit Information Visit Information Visit Type Progress Note Visit Start Time 13:40 Visit Stop Time 14:33 Total Visit Minutes 53 Visit Number 9 Number of SALES DEPARTMENT SUPERVISOR Visits 0 PT-OP-B Current Condition Start: 07/07/18 14:43 Freq: Status: Active Protocol: Document 07/07/18 14:00 HH (Rec: 07/07/18 15:11 HH [email or web address]) Current Condition History of Current Condition Current Complaints Pt c/o chronic LBP and radiating pain to her B LE History of Current Condition Pt is s/p L45 interlaminar epidural steroid injection perfromed by for her chronic LBP on 05/19/18. She cont to c/o LBP 10/09 with distal radiation into B Le. She cannot alma rosa sitting more than 20 minutes without increased pain. Treatment Goals Patient/Caregiver Goals I am going to Pt for strength increase of thighs / arms and lower back I also have difficulty getting off from the floor Current Functional Impairments (Reported) Functional Limitations- Other Difficulty getting off from the floor PT-OP-C Subjective Start: 07/07/18 14:43 Freq: Status: Active Protocol: Document 08/11/18 13:45 HH (Rec: 08/11/18 14:47 HH [email or web address]) OP-PT Subjective Patient Comments Patient Comments Pt states My back felt really good since last visit. I am able to touch my toes again. My stair climbing is getting better that i dont have to do side step during descending anymore. Patient Reported Progress Improving PT-OP-J Posture/Palpation/Skin Start: 07/07/18 14:43 Freq: Status: Active Protocol: Document 07/07/18 14:00 HH (Rec: 07/07/18 15:46 HH [email or web address]) Posture Evaluation Position Standing T-Spine Posture Increased Kyphosis L-Spine Posture Increased Lordosis Shoulder Posture (L) Rounded (R) Rounded Pelvis Posture Anteriorly Tilted Knee Posture (L) Genu Valgus (R) Genu Valgus (L) Ext. Tibial Torsion (R) Ext. Tibial Torsion PT-OP-K Range of Motion Start: 07/07/18 14:43 Freq: Status: Active Protocol: Document 07/07/18 14:00 HH (Rec: 07/07/18 15:11 HH [email or web address]) Lumbar Spine Range of Motion Lumbar Spine Percentage Testing Position Standing Flexion 50 Extension 75 Rotation Left 100 Rotation Right 100 Lateral Flexion Left 80 Lateral Flexion Right 80 Comments excessive angulations at L4-S1 during standing flexion significant loss of lumbar flexion during standing flexion. Pt demonstrates excessive compensatory hip hinge pattern and increase thoracic flexion during standing flexion. PT-OP-K Range of Motion Start: 07/07/18 14:45 Freq: Status: Active Protocol: Document 08/11/18 13:45 HH (Rec: 08/11/18 14:53 HH [email or web address]) Lumbar Spine Range of Motion Lumbar Spine Percentage Testing Position Standing Flexion 75 Extension 75 Rotation Left 100 Rotation Right 100 Lateral Flexion Left 90 Lateral Flexion Right 90 Comments significant improvements with segmental lumbar flexion without symptoms. However, pt requires mod cues to engage lumbar flexion instead of hip flexion. Pt is able to indentify hip hinge pattern vs lumbar flexion pattern PT-OP-M Strength Start: 07/07/18 14:43 Freq: Status: Active Protocol: Document 08/11/18 13:45 HH (Rec: 08/11/18 14:53 [email or web address]) Hip Strength Hip Manual Muscle Testing Right Flexion (L2) 4+ Good+ Extension (S1) 4+ Good+ Abduction 4+ Good+ Adduction 5 Normal Left Flexion (L2) 4+ Good+ Extension (S1) 4+ Good+ Abduction 4+ Good+ Adduction 5 Normal Knee Strength Knee Manual Muscle Testing Right Flexion (S2) 4+ Good+ Extension (L3) 4 Good Left Flexion (S2) 4+ Good+ Extension (L3) 4 Good PT-OP-Q Treatments Start: 07/07/18 14:43 Freq: Status: Active Protocol: Document 08/11/18 13:45 HH (Rec: 08/11/18 14:47 HH [email or web address]) Therapeutic Exercises Supine Exercises supine hip ER with tibial IR Equipment Used ball squeeze between foot Comments faciltiate hip ER thoracic extension Equipment Used 1/2 foam roller Reps/Minutes 10 reps x 2 Comments with shoulder flexion, abd brace Sitting Exercises recumbent bike Equipment Used level 1 Reps/Minutes 5 mins Standing Exercises single leg stance with 2lbs ball pass Equipment Used 2 lb ball Reps/Minutes 5 reps x 4 Comments alternate SLS deadlift Standing Exercise Name deadlift Resistance 10lbs Reps/Minutes 8 times x 2 Comments from floor 1 Standing Exercise Name standing lumbar flexion Side bilateral Equipment Used 10 lbs ball Reps/Minutes 8 reps Comments to mid shins Manual Therapy Treatment Soft Tissue Mobilization tibial IR with hip ER Body Location movement with mobilizatoins Intensity/Depth Superficial Body Position Supine Comments active hip ER with manual tibial IR active release Body Location hip adductors Mobilization Type Cross-Friction Intensity/Depth Moderate Body Position Supine PT-OP-T Assessment and Plan Start: 07/07/18 14:43 Freq: Status: Active Protocol: Document 08/11/18 13:45 HH (Rec: 08/11/18 14:47 HH [email or web address]) Physical Therapy Assessment Goals Three Impairment bodymechanics Short Term Goal (STG) understanding importance of lumbar segmental control and muscle strength to improve lifting mechanics without using knee dominant pattern. STG Duration 4 weeks Two Impairment B hip strength Short Term Goal (STG) to increase 1/2 MMT grade for B hip abd STG Duration 4 weeks One Impairment ROM Short Term Goal (STG) to increase overall lumbar flexion by 20 % to prevent excessive compensation from hip and upper back during lowering activities STG Duration 4 weeks Progress Towards Goals Progress Towards Goals Progressing Toward Goals Assessment Summary Assessment Pt reports significant improvements in segmental control and reduction in back pain since initial evaluation. Pt is satisfied with her current rehab progress and expect to cont therapy for overall strengthening for her lower back. pt also states her chronic bilateral knee pain improve significantly with less pain and increase ROM. Pt is now able to negotiate stair with step throught pattern instead of laterally. Pt also presents improved knock knee posture along with increased overall hip abductors and extensors control. Pt's hands are now able to touch the floor again since last episode of LBP from Wednesday. NEW HEP given with deadlift with object, weighted lumbar flexion, hollow hold, front squat and hip bridge with external rotation. Physical Therapy Plan Next Visit Focus/Plan Next Note Type Treatment Note Next Visit Plan MA at 10th reassess HEP check lumbar ROM, B hip strength cont lumbar strengthening exer , progress as alma rosa single leg balance with ball hold, paloff press hip abd strengthening
--- NOTE | 2018-08-18 14:51 | PT.OPPOC ---
Current Diagnoses Spondylolisthesis, lumbar region (08/18/18) Spinal stenosis, lumbar region with neurogenic claudication (08/18/18) Other intervertebral disc degeneration, lumbar region (08/18/18) Strain of muscle, fascia and tendon of lower back, subsequent encounter (08/18/18) Provider Visit Care Team Role Provider Type Reynold Herman MD Attending Provider Physician Specialty: Orthopedic Surgery Address: [address] [place] [address], [place], [address] Email: [email or web address] Plan Of Care PT-OP-T Assessment and Plan Start: 07/07/18 14:43 Freq: Status: Active Protocol: Document 08/18/18 13:35 HH (Rec: 08/18/18 14:51 HH [email or web address]) Physical Therapy Assessment Goals 5 Impairment gait mechanics Short Term Goal (STG) amb without knock knee touch STG Duration 4 weeks Three Impairment bodymechanics Short Term Goal (STG) understanding importance of lumbar segmental control and muscle strength to improve lifting mechanics without using knee dominant pattern. STG Duration 4 weeks Two Impairment B hip strength Short Term Goal (STG) to reach 5/5 MMT for B hip strength STG Duration 4 weeks One Impairment ROM Short Term Goal (STG) to increase overall lumbar flexion by 20 % to prevent excessive compensation from hip and upper back during lowering activities STG Duration 4 weeks Progress Towards Goals Progress Towards Goals Progressing Toward Goals Progress Comments Pt demonstrates good understanding of postural awareness, bodymechanics during lifting activities and increased segmental control since IE. Assessment Summary Assessment Pt states significant rehab improvements since IE. Pt is now able to use step over instead of side steps during stair negotiation. reports of LBP and B knee pain significant decreased and able to sit >45 mins. Pt shows a good understanding of her lower back segmental control and her preexisted internal rotated hip. Pt is compliant to HEP and cont to improve in overall mobility with reduced pain. Pt will cont benefit from skilled PT to strengthen her abdominal and low back musculature and increase gluteal activation for gait stability and efficiency. Physical Therapy Plan Frequency and Duration Frequency of Treatment 2x/Week Duration of Treatment 4 weeks Plan of Care Start Date 08/18/18 Plan of Care End Date 09/19/18 Therapeutic Interventions Therapeutic Interventions Home Exercise Program Manual Therapy Neuromuscular Re-education Soft Tissue Mobilization Taping Therapeutic Exercises Next Visit Focus/Plan Next Note Type Treatment Note Next Visit Plan Reassess HEP hip ER crab walk cont to focus on hip ER, low back static strengthening progress to dynamic control including balancing ex Plan of Care Dates Plan of Care Start Date 08/18/18 Plan of Care End Date 09/19/18 Please Sign and Return: I have reviewed this Plan of Care and certify that the skilled therapy services above are required to meet the patient?s needs. Physician Signature Date Printed Name and Credentials Clinical Instructor Signature Printed Name and Credentials
--- NOTE | 2018-08-18 14:51 | PT.OTN ---
Current Diagnoses Spondylolisthesis, lumbar region (08/18/18) Spinal stenosis, lumbar region with neurogenic claudication (08/18/18) Other intervertebral disc degeneration, lumbar region (08/18/18) Strain of muscle, fascia and tendon of lower back, subsequent encounter (08/18/18) Physical Therapy Treatment Note PT-OP-A Visit Information Start: 07/07/18 14:43 Freq: Status: Active Protocol: Document 08/18/18 13:35 HH (Rec: 08/18/18 14:51 HH [email or web address]) Out-Patient Physical Therapy Visit Information Visit Information Visit Type Treatment Note Visit Note Reeval today. Visit Start Time 13:35 Visit Stop Time 14:30 Total Visit Minutes 55 Visit Number 10 Number of MEDICATION AIDE Visits 0 PT-OP-B Current Condition Start: 07/07/18 14:43 Freq: Status: Active Protocol: Document 07/07/18 14:00 HH (Rec: 07/07/18 15:11 HH [email or web address]) Current Condition History of Current Condition Current Complaints Pt c/o chronic LBP and radiating pain to her B LE History of Current Condition Pt is s/p L45 interlaminar epidural steroid injection perfromed by for her chronic LBP on 05/19/18. She cont to c/o LBP 10/09 with distal radiation into B Le. She cannot alma rosa sitting more than 20 minutes without increased pain. Treatment Goals Patient/Caregiver Goals I am going to Pt for strength increase of thighs / arms and lower back I also have difficulty getting off from the floor Current Functional Impairments (Reported) Functional Limitations- Other Difficulty getting off from the floor PT-OP-C Subjective Start: 07/07/18 14:43 Freq: Status: Active Protocol: Document 08/18/18 13:35 HH (Rec: 08/18/18 14:51 HH [email or web address]) OP-PT Subjective Patient Comments Patient Comments My back has been doing really good for the past couple weeks. I was able to sit > 45 mins today for the first time and im able climb stair with step through instead of side steps. Patient Reported Progress Improving PT-OP-J Posture/Palpation/Skin Start: 07/07/18 14:43 Freq: Status: Active Protocol: Document 07/07/18 14:00 HH (Rec: 07/07/18 15:46 HH [email or web address]) Posture Evaluation Position Standing T-Spine Posture Increased Kyphosis L-Spine Posture Increased Lordosis Shoulder Posture (L) Rounded (R) Rounded Pelvis Posture Anteriorly Tilted Knee Posture (L) Genu Valgus (R) Genu Valgus (L) Ext. Tibial Torsion (R) Ext. Tibial Torsion PT-OP-K Range of Motion Start: 07/07/18 14:43 Freq: Status: Active Protocol: Document 08/18/18 13:35 (Rec: 08/18/18 14:51 [email or web address]) Lumbar Spine Range of Motion Lumbar Spine Percentage Testing Position Standing Flexion 80 Extension 80 Rotation Left 100 Rotation Right 100 Lateral Flexion Left 90 Lateral Flexion Right 90 Comments significant improvements with segmental lumbar flexion without symptoms. However, pt requires mod cues to engage lumbar flexion instead of hip flexion. Pt is able to indentify hip hinge pattern vs lumbar flexion pattern PT-OP-K Range of Motion Start: 07/07/18 14:45 Freq: Status: Active Protocol: Document 08/18/18 13:35 (Rec: 08/18/18 14:51 [email or web address]) PT-OP-M Strength Start: 07/07/18 14:43 Freq: Status: Active Protocol: Document 08/18/18 13:35 (Rec: 08/18/18 14:51 [email or web address]) Hip Strength Hip Manual Muscle Testing Right Flexion (L2) 4+ Good+ Extension (S1) 4+ Good+ Abduction 4+ Good+ Adduction 5 Normal Left Flexion (L2) 4+ Good+ Extension (S1) 4+ Good+ Abduction 4+ Good+ Adduction 5 Normal PT-OP-Q Treatments Start: 07/07/18 14:43 Freq: Status: Active Protocol: Document 08/18/18 13:35 (Rec: 08/18/18 14:51 [email or web address]) Therapeutic Exercises Supine Exercises supine hip ER with tibial IR Equipment Used with green band at forefoot Comments faciltiate hip ER Sitting Exercises recumbent bike Equipment Used level 3 Reps/Minutes 5 mins Standing Exercises standing hip ER Equipment Used blue band on knees Reps/Minutes 10 x 3 Comments feet point forward with hip external rotation single leg stance with 2lbs ball pass Standing Exercise Name elbow extension Equipment Used 8 lbs Reps/Minutes 8 times x 4 Comments alternate SLS deadlift Standing Exercise Name deadlift Resistance 20 lbs Equipment Used with stick Reps/Minutes 8 times x 2 Comments from floor Gait Training Gait Activity monster walker Description with green band on knees Comments forward walking with green band to facilitate hip ER Manual Therapy Treatment Soft Tissue Mobilization IASTM Mobilization Type Instrument Assisted Intensity/Depth Superficial Body Position Supine Comments proximal stroke from B knee joint towards hip tibial IR with hip ER Body Location movement with mobilizatoins Intensity/Depth Superficial Body Position Supine Comments active hip ER with manual tibial IR PT-OP-T Assessment and Plan Start: 07/07/18 14:43 Freq: Status: Active Protocol: Document 08/18/18 13:35 HH (Rec: 08/18/18 14:51 HH [email or web address]) Physical Therapy Assessment Goals 5 Impairment gait mechanics Short Term Goal (STG) amb without knock knee touch STG Duration 4 weeks Three Impairment bodymechanics Short Term Goal (STG) understanding importance of lumbar segmental control and muscle strength to improve lifting mechanics without using knee dominant pattern. STG Duration 4 weeks Two Impairment B hip strength Short Term Goal (STG) to reach 5/5 MMT for B hip strength STG Duration 4 weeks One Impairment ROM Short Term Goal (STG) to increase overall lumbar flexion by 20 % to prevent excessive compensation from hip and upper back during lowering activities STG Duration 4 weeks Progress Towards Goals Progress Towards Goals Progressing Toward Goals Progress Comments Pt demonstrates good understanding of postural awareness, bodymechanics during lifting activities and increased segmental control since IE. Assessment Summary Assessment Pt states significant rehab improvements since IE. Pt is now able to use step over instead of side steps during stair negotiation. reports of LBP and B knee pain significant decreased and able to sit >45 mins. Pt shows a good understanding of her lower back segmental control and her preexisted internal rotated hip. Pt is compliant to HEP and cont to improve in overall mobility with reduced pain. Pt will cont benefit from skilled PT to strengthen her abdominal and low back musculature and increase gluteal activation for gait stability and efficiency. Physical Therapy Plan Frequency and Duration Frequency of Treatment 2x/Week Duration of Treatment 4 weeks Plan of Care Start Date 08/18/18 Plan of Care End Date 09/19/18 Therapeutic Interventions Therapeutic Interventions Home Exercise Program Manual Therapy Neuromuscular Re-education Soft Tissue Mobilization Taping Therapeutic Exercises Next Visit Focus/Plan Next Note Type Treatment Note Next Visit Plan Reassess HEP hip ER crab walk cont to focus on hip ER, low back static strengthening progress to dynamic control including balancing ex
--- NOTE | 2018-08-23 15:57 | PT.OTN ---
Current Diagnoses Spondylolisthesis, lumbar region (08/23/18) Spinal stenosis, lumbar region with neurogenic claudication (08/23/18) Other intervertebral disc degeneration, lumbar region (08/23/18) Strain of muscle, fascia and tendon of lower back, subsequent encounter (08/23/18) Physical Therapy Treatment Note PT-OP-A Visit Information Start: 07/07/18 14:43 Freq: Status: Active Protocol: Document 08/23/18 13:45 HH (Rec: 08/23/18 15:57 HH [email or web address]) Out-Patient Physical Therapy Visit Information Visit Information Visit Type Treatment Note Visit Start Time 13:45 Visit Stop Time 14:30 Total Visit Minutes 45 Visit Number 11 Number of KNOCKDOWN MAN Visits 0 PT-OP-B Current Condition Start: 07/07/18 14:43 Freq: Status: Active Protocol: Document 07/07/18 14:00 HH (Rec: 07/07/18 15:11 HH [email or web address]) Current Condition History of Current Condition Current Complaints Pt c/o chronic LBP and radiating pain to her B LE History of Current Condition Pt is s/p L45 interlaminar epidural steroid injection perfromed by for her chronic LBP on 05/19/18. She cont to c/o LBP 10/09 with distal radiation into B Le. She cannot alma rosa sitting more than 20 minutes without increased pain. Treatment Goals Patient/Caregiver Goals I am going to Pt for strength increase of thighs / arms and lower back I also have difficulty getting off from the floor Current Functional Impairments (Reported) Functional Limitations- Other Difficulty getting off from the floor PT-OP-C Subjective Start: 07/07/18 14:43 Freq: Status: Active Protocol: Document 08/23/18 13:45 HH (Rec: 08/23/18 15:57 HH [email or web address]) OP-PT Subjective Patient Comments Patient Comments My back cont to feel very good no back pain at all. But my L knee feels kind of sore after deadlift. However, my L knee hasnt clicked in the morning since last week and im able to climb stair without using side steps. Patient Reported Progress Improving PT-OP-J Posture/Palpation/Skin Start: 07/07/18 14:43 Freq: Status: Active Protocol: Document 07/07/18 14:00 HH (Rec: 07/07/18 15:46 HH [email or web address]) Posture Evaluation Position Standing T-Spine Posture Increased Kyphosis L-Spine Posture Increased Lordosis Shoulder Posture (L) Rounded (R) Rounded Pelvis Posture Anteriorly Tilted Knee Posture (L) Genu Valgus (R) Genu Valgus (L) Ext. Tibial Torsion (R) Ext. Tibial Torsion PT-OP-K Range of Motion Start: 07/07/18 14:43 Freq: Status: Active Protocol: Document 08/18/18 13:35 (Rec: 08/18/18 14:51 [email or web address]) Lumbar Spine Range of Motion Lumbar Spine Percentage Testing Position Standing Flexion 80 Extension 80 Rotation Left 100 Rotation Right 100 Lateral Flexion Left 90 Lateral Flexion Right 90 Comments significant improvements with segmental lumbar flexion without symptoms. However, pt requires mod cues to engage lumbar flexion instead of hip flexion. Pt is able to indentify hip hinge pattern vs lumbar flexion pattern PT-OP-K Range of Motion Start: 07/07/18 14:45 Freq: Status: Active Protocol: Document 08/18/18 13:35 (Rec: 08/18/18 14:51 [email or web address]) PT-OP-M Strength Start: 07/07/18 14:43 Freq: Status: Active Protocol: Document 08/18/18 13:35 (Rec: 08/18/18 14:51 [email or web address]) Hip Strength Hip Manual Muscle Testing Right Flexion (L2) 4+ Good+ Extension (S1) 4+ Good+ Abduction 4+ Good+ Adduction 5 Normal Left Flexion (L2) 4+ Good+ Extension (S1) 4+ Good+ Abduction 4+ Good+ Adduction 5 Normal PT-OP-Q Treatments Start: 07/07/18 14:43 Freq: Status: Active Protocol: Document 08/23/18 13:45 (Rec: 08/23/18 15:57 [email or web address]) Cardio Equipment Recumbent Bicycle Duration (Minutes) 5 Resistance 1 Therapeutic Exercises Supine Exercises supine hip ER with tibial IR Equipment Used with green band at forefoot Comments faciltiate hip ER Sitting Exercises seated hip abduction machine Resistance 30 lbs Reps/Minutes 8 times Comments iso hold at end range Standing Exercises iso squat with knee ER Standing Exercise Name squat position Equipment Used blue band Reps/Minutes 8 x 2 standing hip ER Equipment Used blue band on knees Reps/Minutes 10 x 3 Comments feet point forward with hip external rotation deadlift Standing Exercise Name deadlift Resistance 20 lbs Reps/Minutes 8 times x 2 Comments from floor Manual Therapy Treatment Soft Tissue Mobilization IASTM Mobilization Type Instrument Assisted Intensity/Depth Superficial Body Position Supine Comments proximal stroke from B knee joint towards hip tibial IR with hip ER Body Location movement with mobilizatoins Intensity/Depth Moderate Body Position Supine Comments active hip ER with manual tibial IR Taping KT tap Comments Lateral support for L patella PT-OP-T Assessment and Plan Start: 07/07/18 14:43 Freq: Status: Active Protocol: Document 08/23/18 13:45 HH (Rec: 08/23/18 15:57 HH [email or web address]) Physical Therapy Assessment Assessment Summary Assessment Pt states her back pain doesnt bother her for the few weeks and her knees also getting better. pt is now able to perform step over without side stepping during stair negotiation. Pt alma rosa tx well and improved gluteal activation and hip ER. KT applied for L lateral patella support. Physical Therapy Plan Next Visit Focus/Plan Next Note Type Treatment Note Next Visit Plan reassess kt tape cont low back loading flexion cont hip strengthening hip ER (fire hydrant, hip ext, 90/90)
--- NOTE | 2018-08-25 16:52 | PT.OTN ---
Current Diagnoses Spondylolisthesis, lumbar region (08/25/18) Spinal stenosis, lumbar region with neurogenic claudication (08/25/18) Other intervertebral disc degeneration, lumbar region (08/25/18) Strain of muscle, fascia and tendon of lower back, subsequent encounter (08/25/18) Physical Therapy Treatment Note PT-OP-A Visit Information Start: 07/07/18 14:43 Freq: Status: Active Protocol: Document 08/25/18 13:45 HH (Rec: 08/25/18 16:52 [email or web address]) Out-Patient Physical Therapy Visit Information Visit Information Visit Type Treatment Note Visit Start Time 13:45 Visit Stop Time 14:30 Total Visit Minutes 45 Visit Number 12 Number of GOSPEL WORKER Visits 0 PT-OP-B Current Condition Start: 07/07/18 14:43 Freq: Status: Active Protocol: Document 07/07/18 14:00 HH (Rec: 07/07/18 15:11 HH [email or web address]) Current Condition History of Current Condition Current Complaints Pt c/o chronic LBP and radiating pain to her B LE History of Current Condition Pt is s/p L45 interlaminar epidural steroid injection perfromed by for her chronic LBP on 05/19/18. She cont to c/o LBP 10/09 with distal radiation into B Le. She cannot alma rosa sitting more than 20 minutes without increased pain. Treatment Goals Patient/Caregiver Goals I am going to Pt for strength increase of thighs / arms and lower back I also have difficulty getting off from the floor Current Functional Impairments (Reported) Functional Limitations- Other Difficulty getting off from the floor PT-OP-C Subjective Start: 07/07/18 14:43 Freq: Status: Active Protocol: Document 08/25/18 13:45 HH (Rec: 08/25/18 16:52 [email or web address]) OP-PT Subjective Patient Comments Patient Comments Pt states My back and knees feels sore today and i dont know why. The Kt tape fell off yesterday morning but it does feel good to stabilize my knee. Patient Reported Progress Same PT-OP-J Posture/Palpation/Skin Start: 07/07/18 14:43 Freq: Status: Active Protocol: Document 07/07/18 14:00 HH (Rec: 07/07/18 15:46 HH [email or web address]) Posture Evaluation Position Standing T-Spine Posture Increased Kyphosis L-Spine Posture Increased Lordosis Shoulder Posture (L) Rounded (R) Rounded Pelvis Posture Anteriorly Tilted Knee Posture (L) Genu Valgus (R) Genu Valgus (L) Ext. Tibial Torsion (R) Ext. Tibial Torsion PT-OP-K Range of Motion Start: 07/07/18 14:43 Freq: Status: Active Protocol: Document 08/18/18 13:35 HH (Rec: 08/18/18 14:51 [email or web address]) Lumbar Spine Range of Motion Lumbar Spine Percentage Testing Position Standing Flexion 80 Extension 80 Rotation Left 100 Rotation Right 100 Lateral Flexion Left 90 Lateral Flexion Right 90 Comments significant improvements with segmental lumbar flexion without symptoms. However, pt requires mod cues to engage lumbar flexion instead of hip flexion. Pt is able to indentify hip hinge pattern vs lumbar flexion pattern PT-OP-K Range of Motion Start: 07/07/18 14:45 Freq: Status: Active Protocol: Document 08/18/18 13:35 HH (Rec: 08/18/18 14:51 [email or web address]) PT-OP-M Strength Start: 07/07/18 14:43 Freq: Status: Active Protocol: Document 08/18/18 13:35 HH (Rec: 08/18/18 14:51 [email or web address]) Hip Strength Hip Manual Muscle Testing Right Flexion (L2) 4+ Good+ Extension (S1) 4+ Good+ Abduction 4+ Good+ Adduction 5 Normal Left Flexion (L2) 4+ Good+ Extension (S1) 4+ Good+ Abduction 4+ Good+ Adduction 5 Normal PT-OP-Q Treatments Start: 07/07/18 14:43 Freq: Status: Active Protocol: Document 08/25/18 13:45 HH (Rec: 08/25/18 16:52 [email or web address]) Therapeutic Exercises Supine Exercises supine hip ER with tibial IR Equipment Used with green band at forefoot Comments faciltiate hip ER Manual Therapy Treatment Soft Tissue Mobilization L paraspinals and gluteal max Mobilization Type Cross-Friction Trigger Point Release Intensity/Depth Moderate Body Position Prone IASTM Mobilization Type Instrument Assisted Intensity/Depth Superficial Body Position Supine Comments proximal stroke from B knee joint towards hip tibial IR with hip ER Body Location movement with mobilizatoins Intensity/Depth Moderate Body Position Supine Comments active hip ER with manual tibial IR active release Body Location hip adductors Mobilization Type Cross-Friction Intensity/Depth Moderate Body Position Supine Joint Mobilizations SI joint gapping Joint SI Grade II Body Position Sidelying PT-OP-T Assessment and Plan Start: 07/07/18 14:43 Freq: Status: Active Protocol: Document 08/25/18 13:45 HH (Rec: 08/25/18 16:52 HH [email or web address]) Physical Therapy Assessment Assessment Summary Assessment Pt is satisfied with her current rehab progress. pt states she could sit more than an hour lately without any symptoms. pt alma rosa tx very well today with focus on manual therapy. pt reports reliefs of her B knees and lumbar paraspinals. KT tape applied on L lateral patella for stability Physical Therapy Plan Next Visit Focus/Plan Next Note Type Treatment Note Next Visit Plan reassess kt tape cont low back loading flexion cont hip strengthening hip ER (fire hydrant, hip ext, 90/90)
--- NOTE | 2018-08-30 17:14 | PT.OTN ---
Current Diagnoses Spondylolisthesis, lumbar region (08/30/18) Spinal stenosis, lumbar region with neurogenic claudication (08/30/18) Other intervertebral disc degeneration, lumbar region (08/30/18) Strain of muscle, fascia and tendon of lower back, subsequent encounter (08/30/18) Physical Therapy Treatment Note PT-OP-A Visit Information Start: 07/07/18 14:43 Freq: Status: Active Protocol: Document 08/30/18 13:45 HH (Rec: 08/30/18 16:20 HH [email or web address]) Out-Patient Physical Therapy Visit Information Visit Information Visit Type Treatment Note Visit Start Time 13:45 Visit Stop Time 14:30 Total Visit Minutes 45 Visit Number 13 Number of [employer] PLANT GRINDER Visits 0 PT-OP-B Current Condition Start: 07/07/18 14:43 Freq: Status: Active Protocol: Document 07/07/18 14:00 HH (Rec: 07/07/18 15:11 HH [email or web address]) Current Condition History of Current Condition Current Complaints Pt c/o chronic LBP and radiating pain to her B LE History of Current Condition Pt is s/p L45 interlaminar epidural steroid injection perfromed by for her chronic LBP on 05/19/18. She cont to c/o LBP 10/09 with distal radiation into B Le. She cannot alma rosa sitting more than 20 minutes without increased pain. Treatment Goals Patient/Caregiver Goals I am going to Pt for strength increase of thighs / arms and lower back I also have difficulty getting off from the floor Current Functional Impairments (Reported) Functional Limitations- Other Difficulty getting off from the floor PT-OP-C Subjective Start: 07/07/18 14:43 Freq: Status: Active Protocol: Document 08/30/18 13:45 HH (Rec: 08/30/18 16:20 HH [email or web address]) OP-PT Subjective Patient Comments Patient Comments I feel great since last visit . My back is doing very good and my knee has not been clicking with the KT tape. I am able to climb stair with step over instead of side steps. Patient Reported Progress Improving PT-OP-J Posture/Palpation/Skin Start: 07/07/18 14:43 Freq: Status: Active Protocol: Document 07/07/18 14:00 HH (Rec: 07/07/18 15:46 HH [email or web address]) Posture Evaluation Position Standing T-Spine Posture Increased Kyphosis L-Spine Posture Increased Lordosis Shoulder Posture (L) Rounded (R) Rounded Pelvis Posture Anteriorly Tilted Knee Posture (L) Genu Valgus (R) Genu Valgus (L) Ext. Tibial Torsion (R) Ext. Tibial Torsion PT-OP-K Range of Motion Start: 07/07/18 14:43 Freq: Status: Active Protocol: Document 08/18/18 13:35 HH (Rec: 08/18/18 14:51 [email or web address]) Lumbar Spine Range of Motion Lumbar Spine Percentage Testing Position Standing Flexion 80 Extension 80 Rotation Left 100 Rotation Right 100 Lateral Flexion Left 90 Lateral Flexion Right 90 Comments significant improvements with segmental lumbar flexion without symptoms. However, pt requires mod cues to engage lumbar flexion instead of hip flexion. Pt is able to indentify hip hinge pattern vs lumbar flexion pattern PT-OP-K Range of Motion Start: 07/07/18 14:45 Freq: Status: Active Protocol: Document 08/18/18 13:35 HH (Rec: 08/18/18 14:51 [email or web address]) PT-OP-M Strength Start: 07/07/18 14:43 Freq: Status: Active Protocol: Document 08/18/18 13:35 HH (Rec: 08/18/18 14:51 [email or web address]) Hip Strength Hip Manual Muscle Testing Right Flexion (L2) 4+ Good+ Extension (S1) 4+ Good+ Abduction 4+ Good+ Adduction 5 Normal Left Flexion (L2) 4+ Good+ Extension (S1) 4+ Good+ Abduction 4+ Good+ Adduction 5 Normal PT-OP-Q Treatments Start: 07/07/18 14:43 Freq: Status: Active Protocol: Document 08/30/18 13:45 HH (Rec: 08/30/18 17:14 [email or web address]) Cardio Equipment Bicycle (Upright) Duration (Minutes) 6 Gym Equipment Shuttle Recovery Leg press Details heel push off with green band around knees Resistance 50 lbs Shuttle Recovery Platform Stable Reps/Time 10 mins Therapeutic Exercises Supine Exercises hip thrust Side bilateral Equipment Used Blue band Reps/Minutes 10 x 2 supine hip ER with tibial IR Equipment Used with blue band at forefoot Comments faciltiate hip ER thoracic extension Equipment Used 1/2 foam roller Reps/Minutes 10 reps x 2 Comments with shoulder flexion, abd brace Manual Therapy Treatment Soft Tissue Mobilization tibial IR with hip ER Body Location movement with mobilizatoins Intensity/Depth Moderate Body Position Supine Comments active hip ER with manual tibial IR Taping KT tap Comments Lateral support for L patella PT-OP-T Assessment and Plan Start: 07/07/18 14:43 Freq: Status: Active Protocol: Document 08/30/18 13:45 HH (Rec: 08/30/18 17:14 HH [email or web address]) Physical Therapy Assessment Assessment Summary Assessment Pt states her symptoms are well managed now and she wants to cont PT for few more visits to learn how to use gym equipments properly at the gym for cont strengthening. Pt presents improvements in quality of mobility. Pt is able step over consistently during stair climbing after many years. Discussed d/c planning on 09/11 Physical Therapy Plan Next Visit Focus/Plan Next Note Type Treatment Note Next Visit Plan Reassess kt tape low back strengthening B LE and hip strengthening gait training with ER hip
--- NOTE | 2018-09-01 14:36 | PT.OTN ---
Current Diagnoses Spondylolisthesis, lumbar region (09/01/18) Spinal stenosis, lumbar region with neurogenic claudication (09/01/18) Other intervertebral disc degeneration, lumbar region (09/01/18) Strain of muscle, fascia and tendon of lower back, subsequent encounter (09/01/18) Physical Therapy Treatment Note PT-OP-A Visit Information Start: 07/07/18 14:43 Freq: Status: Active Protocol: Document 09/01/18 13:45 HH (Rec: 09/01/18 14:35 [email or web address]) Out-Patient Physical Therapy Visit Information Visit Information Visit Type Treatment Note Visit Start Time 13:45 Visit Stop Time 14:30 Total Visit Minutes 45 Visit Number 14 Number of SOLAR INSTALLATION CREW SUPERVISOR Visits 0 PT-OP-B Current Condition Start: 07/07/18 14:43 Freq: Status: Active Protocol: Document 07/07/18 14:00 HH (Rec: 07/07/18 15:11 HH [email or web address]) Current Condition History of Current Condition Current Complaints Pt c/o chronic LBP and radiating pain to her B LE History of Current Condition Pt is s/p L45 interlaminar epidural steroid injection perfromed by for her chronic LBP on 05/19/18. She cont to c/o LBP 10/09 with distal radiation into B Le. She cannot alma rosa sitting more than 20 minutes without increased pain. Treatment Goals Patient/Caregiver Goals I am going to Pt for strength increase of thighs / arms and lower back I also have difficulty getting off from the floor Current Functional Impairments (Reported) Functional Limitations- Other Difficulty getting off from the floor PT-OP-C Subjective Start: 07/07/18 14:43 Freq: Status: Active Protocol: Document 09/01/18 13:45 HH (Rec: 09/01/18 14:35 [email or web address]) OP-PT Subjective Patient Comments Patient Comments My back feels good. I sat for 2 hours for the first time in years without any symptoms yesterday. But i did have to get up and move around. My front lower legs feel stiff and sore today. My knees felt great last time after the bike . But the bridging ex tends to make me feel slightly dizzy probably because of my pacemaker Patient Reported Progress Improving PT-OP-J Posture/Palpation/Skin Start: 07/07/18 14:43 Freq: Status: Active Protocol: Document 07/07/18 14:00 HH (Rec: 07/07/18 15:46 [email or web address]) Posture Evaluation Position Standing T-Spine Posture Increased Kyphosis L-Spine Posture Increased Lordosis Shoulder Posture (L) Rounded (R) Rounded Pelvis Posture Anteriorly Tilted Knee Posture (L) Genu Valgus (R) Genu Valgus (L) Ext. Tibial Torsion (R) Ext. Tibial Torsion PT-OP-K Range of Motion Start: 07/07/18 14:43 Freq: Status: Active Protocol: Document 08/18/18 13:35 HH (Rec: 08/18/18 14:51 [email or web address]) Lumbar Spine Range of Motion Lumbar Spine Percentage Testing Position Standing Flexion 80 Extension 80 Rotation Left 100 Rotation Right 100 Lateral Flexion Left 90 Lateral Flexion Right 90 Comments significant improvements with segmental lumbar flexion without symptoms. However, pt requires mod cues to engage lumbar flexion instead of hip flexion. Pt is able to indentify hip hinge pattern vs lumbar flexion pattern PT-OP-K Range of Motion Start: 07/07/18 14:45 Freq: Status: Active Protocol: Document 08/18/18 13:35 HH (Rec: 08/18/18 14:51 [email or web address]) PT-OP-M Strength Start: 07/07/18 14:43 Freq: Status: Active Protocol: Document 08/18/18 13:35 HH (Rec: 08/18/18 14:51 [email or web address]) Hip Strength Hip Manual Muscle Testing Right Flexion (L2) 4+ Good+ Extension (S1) 4+ Good+ Abduction 4+ Good+ Adduction 5 Normal Left Flexion (L2) 4+ Good+ Extension (S1) 4+ Good+ Abduction 4+ Good+ Adduction 5 Normal PT-OP-Q Treatments Start: 07/07/18 14:43 Freq: Status: Active Protocol: Document 09/01/18 13:45 HH (Rec: 09/01/18 14:35 [email or web address]) Cardio Equipment Bicycle (Upright) Duration (Minutes) 8 Resistance 6 Gym Equipment Shuttle Recovery Leg press Details heel push off with blue bands on knees Resistance 75 lbs Shuttle Recovery Platform Stable Reps/Time 10 mins Therapeutic Exercises Supine Exercises supine hip ER with tibial IR Equipment Used with blue band at forefoot Comments faciltiate hip ER Standing Exercises unilateral deadlift Resistance 15 lbs Equipment Used dumbbell Reps/Minutes 8 x 2 Comments from mid rogers deadlift Standing Exercise Name deadlift Resistance 20 lbs Reps/Minutes 8 times x 2 Comments from mid rogers Manual Therapy Treatment Soft Tissue Mobilization IASTM Mobilization Type Instrument Assisted Intensity/Depth Superficial Body Position Supine Comments proximal stroke from B knee joint towards hip tibial IR with hip ER Body Location movement with mobilizatoins Intensity/Depth Moderate Body Position Supine Comments active hip ER with manual tibial IR PT-OP-T Assessment and Plan Start: 07/07/18 14:43 Freq: Status: Active Protocol: Document 09/01/18 13:45 HH (Rec: 09/01/18 14:35 HH [email or web address]) Physical Therapy Assessment Assessment Summary Assessment Pt states her symptoms are overall very good and under control and she felt she is getting stronger and more aware of her posture. Plan to d/c in 2 weeks. Cont to educate pt how to use gym equipments for B hip and low back strengthening Physical Therapy Plan Next Visit Focus/Plan Next Note Type Treatment Note Next Visit Plan KT tape on lateral patella support if needed back strengthening with conc and ecc control hip ER strengtehning hip abductor strengthening manual therapy on facilitating hip ER
--- NOTE | 2018-09-09 11:21 | PT.OTN ---
Current Diagnoses Spondylolisthesis, lumbar region (09/09/18) Spinal stenosis, lumbar region with neurogenic claudication (09/09/18) Other intervertebral disc degeneration, lumbar region (09/09/18) Strain of muscle, fascia and tendon of lower back, subsequent encounter (09/09/18) Physical Therapy Treatment Note PT-OP-A Visit Information Start: 07/07/18 14:43 Freq: Status: Active Protocol: Document 09/09/18 10:58 SA (Rec: 09/09/18 11:21 SA [email or web address]) Out-Patient Physical Therapy Visit Information Visit Information Visit Type Treatment Note Visit Start Time 09:00 Visit Stop Time 09:46 Total Visit Minutes 46 Visit Number 15 Number of INFORMATION SECURITY DIRECTOR Visits 1 PT-OP-B Current Condition Start: 07/07/18 14:43 Freq: Status: Active Protocol: Document 07/07/18 14:00 HH (Rec: 07/07/18 15:11 HH [email or web address]) Current Condition History of Current Condition Current Complaints Pt c/o chronic LBP and radiating pain to her B LE History of Current Condition Pt is s/p L45 interlaminar epidural steroid injection perfromed by for her chronic LBP on 05/19/18. She cont to c/o LBP 10/09 with distal radiation into B Le. She cannot alma rosa sitting more than 20 minutes without increased pain. Treatment Goals Patient/Caregiver Goals I am going to Pt for strength increase of thighs / arms and lower back I also have difficulty getting off from the floor Current Functional Impairments (Reported) Functional Limitations- Other Difficulty getting off from the floor PT-OP-C Subjective Start: 07/07/18 14:43 Freq: Status: Active Protocol: Document 09/09/18 10:58 SA (Rec: 09/09/18 11:21 SA [email or web address]) OP-PT Subjective Patient Comments Patient Comments Pt reports knees feeling good, thinks STM and exercises helping. Did have some anterior shoulder/pec pain close to pacemaker site. Spoke with DR and requested to limit OH activity and UE lifting over 2-3 lbs. Patient Reported Progress Improving PT-OP-J Posture/Palpation/Skin Start: 07/07/18 14:43 Freq: Status: Active Protocol: Document 07/07/18 14:00 HH (Rec: 07/07/18 15:46 HH [email or web address]) Posture Evaluation Position Standing T-Spine Posture Increased Kyphosis L-Spine Posture Increased Lordosis Shoulder Posture (L) Rounded (R) Rounded Pelvis Posture Anteriorly Tilted Knee Posture (L) Genu Valgus (R) Genu Valgus (L) Ext. Tibial Torsion (R) Ext. Tibial Torsion PT-OP-K Range of Motion Start: 07/07/18 14:43 Freq: Status: Active Protocol: Document 08/18/18 13:35 HH (Rec: 08/18/18 14:51 HH [email or web address]) Lumbar Spine Range of Motion Lumbar Spine Percentage Testing Position Standing Flexion 80 Extension 80 Rotation Left 100 Rotation Right 100 Lateral Flexion Left 90 Lateral Flexion Right 90 Comments significant improvements with segmental lumbar flexion without symptoms. However, pt requires mod cues to engage lumbar flexion instead of hip flexion. Pt is able to indentify hip hinge pattern vs lumbar flexion pattern PT-OP-K Range of Motion Start: 07/07/18 14:45 Freq: Status: Active Protocol: Document 08/18/18 13:35 HH (Rec: 08/18/18 14:51 [email or web address]) PT-OP-M Strength Start: 07/07/18 14:43 Freq: Status: Active Protocol: Document 08/18/18 13:35 HH (Rec: 08/18/18 14:51 HH [email or web address]) Hip Strength Hip Manual Muscle Testing Right Flexion (L2) 4+ Good+ Extension (S1) 4+ Good+ Abduction 4+ Good+ Adduction 5 Normal Left Flexion (L2) 4+ Good+ Extension (S1) 4+ Good+ Abduction 4+ Good+ Adduction 5 Normal PT-OP-Q Treatments Start: 07/07/18 14:43 Freq: Status: Active Protocol: Document 09/09/18 10:58 SA (Rec: 09/09/18 11:21 SA [email or web address]) Cardio Equipment Bicycle (Upright) Duration (Minutes) 8 Resistance 6 Seat Position 5 Gym Equipment Cable Column (Body Solid) Hip ABD Details engaging core Resistance 2.5 plates Reps/Time 2 x 10 Shuttle Recovery Leg press Details heel push off with blue bands on knees Resistance 75 lbs Reps/Time 3 min Therapeutic Exercises Supine Exercises hip thrust Side bilateral Equipment Used Blue band Reps/Minutes 10 x 2 supine hip ER with tibial IR Equipment Used with blue band at forefoot Comments faciltiate hip ER Standing Exercises iso squat with knee ER Standing Exercise Name squat position Equipment Used blue band Reps/Minutes 8 x 2 Comments with no knee symptoms single leg stance with 2lbs ball pass Standing Exercise Name no weight used Side bilateral Equipment Used green ball Reps/Minutes 5 min Comments focus on core Manual Therapy Treatment Soft Tissue Mobilization IASTM Mobilization Type Instrument Assisted Intensity/Depth Superficial Body Position Supine Comments proximal stroke from B knee joint towards hip tibial IR with hip ER Body Location movement with mobilizatoins Intensity/Depth Moderate Body Position Supine Comments active hip ER with manual tibial IR PT-OP-T Assessment and Plan Start: 07/07/18 14:43 Freq: Status: Active Protocol: Document 09/09/18 10:58 SA (Rec: 09/09/18 11:21 SA [email or web address]) Physical Therapy Assessment Assessment Summary Assessment Pt feeling more confident about transitioning to gym. Her knee symproms have improved. We did not do any UE lifting with weights d/t soreness around pacemaker. Physical Therapy Plan Next Visit Focus/Plan Next Note Type Treatment Note Next Visit Plan Cont to progress core stability and hip strengthening into abduction for transition to IND in gym and decreased symptoms.
--- NOTE | 2018-09-20 15:36 | PT.OTN ---
Current Diagnoses Spondylolisthesis, lumbar region (09/20/18) Spinal stenosis, lumbar region with neurogenic claudication (09/20/18) Other intervertebral disc degeneration, lumbar region (09/20/18) Strain of muscle, fascia and tendon of lower back, subsequent encounter (09/20/18) Physical Therapy Treatment Note PT-OP-A Visit Information Start: 07/07/18 14:43 Freq: Status: Active Protocol: Document 09/20/18 15:17 SA (Rec: 09/20/18 15:36 SA [email or web address]) Out-Patient Physical Therapy Visit Information Visit Information Visit Type Treatment Note Visit Start Time 13:45 Visit Stop Time 14:38 Total Visit Minutes 48 Visit Number 16 Number of RETAIL COORDINATOR Visits 2 PT-OP-B Current Condition Start: 07/07/18 14:43 Freq: Status: Active Protocol: Document 07/07/18 14:00 HH (Rec: 07/07/18 15:11 HH [email or web address]) Current Condition History of Current Condition Current Complaints Pt c/o chronic LBP and radiating pain to her B LE History of Current Condition Pt is s/p L45 interlaminar epidural steroid injection perfromed by for her chronic LBP on 05/19/18. She cont to c/o LBP 10/09 with distal radiation into B Le. She cannot alma rosa sitting more than 20 minutes without increased pain. Treatment Goals Patient/Caregiver Goals I am going to Pt for strength increase of thighs / arms and lower back I also have difficulty getting off from the floor Current Functional Impairments (Reported) Functional Limitations- Other Difficulty getting off from the floor PT-OP-C Subjective Start: 07/07/18 14:43 Freq: Status: Active Protocol: Document 09/20/18 15:17 SA (Rec: 09/20/18 15:36 [email or web address]) OP-PT Subjective Patient Comments Patient Comments Pt reports knees feeling sore after last visit and thinks the STM with instrament may have been too aggressive. Doing exercises at home and back symptoms have been minimal. Patient Reported Progress Improving PT-OP-J Posture/Palpation/Skin Start: 07/07/18 14:43 Freq: Status: Active Protocol: Document 07/07/18 14:00 HH (Rec: 07/07/18 15:46 HH [email or web address]) Posture Evaluation Position Standing T-Spine Posture Increased Kyphosis L-Spine Posture Increased Lordosis Shoulder Posture (L) Rounded (R) Rounded Pelvis Posture Anteriorly Tilted Knee Posture (L) Genu Valgus (R) Genu Valgus (L) Ext. Tibial Torsion (R) Ext. Tibial Torsion PT-OP-K Range of Motion Start: 07/07/18 14:43 Freq: Status: Active Protocol: Document 08/18/18 13:35 HH (Rec: 08/18/18 14:51 HH [email or web address]) Lumbar Spine Range of Motion Lumbar Spine Percentage Testing Position Standing Flexion 80 Extension 80 Rotation Left 100 Rotation Right 100 Lateral Flexion Left 90 Lateral Flexion Right 90 Comments significant improvements with segmental lumbar flexion without symptoms. However, pt requires mod cues to engage lumbar flexion instead of hip flexion. Pt is able to indentify hip hinge pattern vs lumbar flexion pattern PT-OP-K Range of Motion Start: 07/07/18 14:45 Freq: Status: Active Protocol: Document 08/18/18 13:35 HH (Rec: 08/18/18 14:51 [email or web address]) PT-OP-M Strength Start: 07/07/18 14:43 Freq: Status: Active Protocol: Document 08/18/18 13:35 HH (Rec: 08/18/18 14:51 [email or web address]) Hip Strength Hip Manual Muscle Testing Right Flexion (L2) 4+ Good+ Extension (S1) 4+ Good+ Abduction 4+ Good+ Adduction 5 Normal Left Flexion (L2) 4+ Good+ Extension (S1) 4+ Good+ Abduction 4+ Good+ Adduction 5 Normal PT-OP-Q Treatments Start: 07/07/18 14:43 Freq: Status: Active Protocol: Document 09/20/18 15:17 SA (Rec: 09/20/18 15:36 SA [email or web address]) Cardio Equipment Bicycle (Upright) Duration (Minutes) 8 Resistance 6 Seat Position 5 Gym Equipment Cable Column (Body Solid) Hip ABD Details engaging core Resistance 3.5 plates Reps/Time 2 x 10 Therapeutic Exercises Supine Exercises hip thrust Side bilateral Equipment Used Blue band Reps/Minutes 10 x 2 supine hip ER with tibial IR Equipment Used with blue band at forefoot Comments faciltiate hip ER Standing Exercises iso squat with knee ER Standing Exercise Name squat position Equipment Used blue band Reps/Minutes 8 x 2 Comments with no knee symptoms single leg stance with 2lbs ball pass Standing Exercise Name no weight used Side bilateral Equipment Used green ball Reps/Minutes 5 min Comments focus on core Manual Therapy Treatment Soft Tissue Mobilization IASTM Mobilization Type Myofascial Release Rolling Strumming Intensity/Depth Moderate Body Position Supine Comments Did not use instrument this time, pt stated she was sore. B knees, proximal stroke. tibial IR with hip ER Body Location movement with mobilizatoins Intensity/Depth Moderate Body Position Supine Comments active hip ER with manual tibial IR PT-OP-Q Treatments Start: 07/07/18 14:45 Freq: Status: Active Protocol: Document 09/20/18 15:17 SA (Rec: 09/20/18 15:36 SA [email or web address]) PT-OP-T Assessment and Plan Start: 07/07/18 14:43 Freq: Status: Active Protocol: Document 09/20/18 15:17 SA (Rec: 09/20/18 15:36 SA [email or web address]) Physical Therapy Assessment Assessment Summary Assessment Pt with minor set back in knee pain, tolerated exercises well today. Attempted Kinesio taping with medial patellar glide and pt felt like it was crunching Physical Therapy Plan Next Visit Focus/Plan Next Note Type Treatment Note Next Visit Plan Cont to progress core stability and hip strengthening into abduction for transition to IND in gym and decreased symptoms.
--- NOTE | 2018-09-27 17:01 | PT.OTN ---
Current Diagnoses Spondylolisthesis, lumbar region (09/27/18) Spinal stenosis, lumbar region with neurogenic claudication (09/27/18) Other intervertebral disc degeneration, lumbar region (09/27/18) Strain of muscle, fascia and tendon of lower back, subsequent encounter (09/27/18) Physical Therapy Treatment Note PT-OP-A Visit Information Start: 07/07/18 14:43 Freq: Status: Active Protocol: Document 09/27/18 15:25 HH (Rec: 09/27/18 17:01 [email or web address]) Out-Patient Physical Therapy Visit Information Visit Information Visit Type Discharge Summary Visit Start Time 15:25 Visit Stop Time 16:20 Total Visit Minutes 55 Visit Number 17 Number of LINING MAKER HAND Visits 3 PT-OP-B Current Condition Start: 07/07/18 14:43 Freq: Status: Active Protocol: Document 07/07/18 14:00 HH (Rec: 07/07/18 15:11 [email or web address]) Current Condition History of Current Condition Current Complaints Pt c/o chronic LBP and radiating pain to her B LE History of Current Condition Pt is s/p L45 interlaminar epidural steroid injection perfromed by for her chronic LBP on 05/19/18. She cont to c/o LBP 10/09 with distal radiation into B Le. She cannot alma rosa sitting more than 20 minutes without increased pain. Treatment Goals Patient/Caregiver Goals I am going to Pt for strength increase of thighs / arms and lower back I also have difficulty getting off from the floor Current Functional Impairments (Reported) Functional Limitations- Other Difficulty getting off from the floor PT-OP-C Subjective Start: 07/07/18 14:43 Freq: Status: Active Protocol: Document 09/27/18 15:25 HH (Rec: 09/27/18 17:01 [email or web address]) OP-PT Subjective Patient Comments Patient Comments Pt reports her back pain doesnt bother her anymore. She is now able to sit for long time without aggravation. Patient Reported Progress Improving PT-OP-J Posture/Palpation/Skin Start: 07/07/18 14:43 Freq: Status: Active Protocol: Document 07/07/18 14:00 HH (Rec: 07/07/18 15:46 HH [email or web address]) Posture Evaluation Position Standing T-Spine Posture Increased Kyphosis L-Spine Posture Increased Lordosis Shoulder Posture (L) Rounded (R) Rounded Pelvis Posture Anteriorly Tilted Knee Posture (L) Genu Valgus (R) Genu Valgus (L) Ext. Tibial Torsion (R) Ext. Tibial Torsion PT-OP-K Range of Motion Start: 07/07/18 14:43 Freq: Status: Active Protocol: Document 08/18/18 13:35 HH (Rec: 08/18/18 14:51 [email or web address]) Lumbar Spine Range of Motion Lumbar Spine Percentage Testing Position Standing Flexion 80 Extension 80 Rotation Left 100 Rotation Right 100 Lateral Flexion Left 90 Lateral Flexion Right 90 Comments significant improvements with segmental lumbar flexion without symptoms. However, pt requires mod cues to engage lumbar flexion instead of hip flexion. Pt is able to indentify hip hinge pattern vs lumbar flexion pattern PT-OP-K Range of Motion Start: 07/07/18 14:45 Freq: Status: Active Protocol: Document 08/18/18 13:35 HH (Rec: 08/18/18 14:51 [email or web address]) PT-OP-M Strength Start: 07/07/18 14:43 Freq: Status: Active Protocol: Document 08/18/18 13:35 HH (Rec: 08/18/18 14:51 [email or web address]) Hip Strength Hip Manual Muscle Testing Right Flexion (L2) 4+ Good+ Extension (S1) 4+ Good+ Abduction 4+ Good+ Adduction 5 Normal Left Flexion (L2) 4+ Good+ Extension (S1) 4+ Good+ Abduction 4+ Good+ Adduction 5 Normal PT-OP-Q Treatments Start: 07/07/18 14:43 Freq: Status: Active Protocol: Document 09/27/18 15:25 HH (Rec: 09/27/18 17:01 [email or web address]) Cardio Equipment Recumbent Bicycle Duration (Minutes) 10 Resistance 6 Therapeutic Exercises Supine Exercises supine hip ER with tibial IR Equipment Used with blue band at forefoot Comments faciltiate hip ER Standing Exercises standing VMO TKE Side bilateral Comments VMO TKE with green band Manual Therapy Treatment Soft Tissue Mobilization seated knee ext with R lateral patellar support Comments with lateral support at L patella IASTM Mobilization Type Myofascial Release Rolling Strumming Intensity/Depth Moderate Body Position Supine Comments proximal stroke from B knee joint towards hip tibial IR with hip ER Body Location movement with mobilizatoins Intensity/Depth Moderate Body Position Supine Comments active hip ER with manual tibial IR Taping KT tap Comments Lateral support for L patella PT-OP-Q Treatments Start: 07/07/18 14:45 Freq: Status: Active Protocol: Document 09/27/18 15:25 HH (Rec: 09/27/18 17:01 [email or web address]) PT-OP-T Assessment and Plan Start: 07/07/18 14:43 Freq: Status: Active Protocol: Document 09/27/18 15:25 HH (Rec: 09/27/18 17:01 [email or web address]) Physical Therapy Assessment Goals 5 Nursing Home Goal (LTG) pt cont present slight knock knee pattern Three Nursing Home Goal (LTG) goal met Two Filler Feeder Goal (LTG) goal met One Filler Feeder Goal (LTG) goal met Progress Towards Goals Progress Towards Goals Goals Met Assessment Summary Assessment Pt does not have recurrent back pain since august. Pt has been compliant with her HEP. However, pt does c/o her L knee pain on and off and willing to request for referral from MD for further tx. Pt denies clicking at the knee at the end of session after manual therapy and KT tape Physical Therapy Plan Discharge Physical Therapy Discharge Reasons Goals Met
== END 2018-11-09 16:37 ==
LOC: PHYS 15:15
PROVIDERS: Visit Provider Orthopaedic Surgery
DX: M51.36 Other intervertebral disc degeneration, lumbar region (principal); M43.16 Spondylolisthesis, lumbar region; S39.012D Strain of muscle, fascia and tendon of lower back, subsequent encounter; M48.062 Spinal stenosis, lumbar region with neurogenic claudication
CPT/HCPCS: 97110; 97112; 97140; 97161; 97530

== ENCOUNTER → 2018-09-30 11:15 | Outpatient (CLI) | payer MEDICARE, OTHER, SELFPAY ==
[2018-09-30 12:46] LABS: BUN Creatinine Ratio 21.3 (6-22); Blood Urea Nitrogen 17 mg/dL (7-17); Calcium 9.4 mg/dL (8.4-10.2); Carbon Dioxide 29 mmol/L (22-32); Chloride 100 mmol/L (98-107); Creatine Kinase 26 U/L (30-135); Estimated Glomerular Filt Rate > 60.0 mL/min (>60); Glucose 102 mg/dL (80-110); HEMOLYSIS < 15 (0-50); Magnesium 2.1 mg/dL (1.6-2.3); Phosphorous 3.8 mg/dL (2.8-4.1); Potassium 4.4 mmol/L (3.4-5.1); Sodium 139 mmol/L (137-145)
[2018-09-30 15:13] LABS: Vitamin D 25 Hydroxy (D3) 52.9 ng/mL (30.0-100.0)
== END ==
PROVIDERS: PCP Student in an Organized Health Care Education/Training Program; Visit Provider Student in an Organized Health Care Education/Training Program
DX: M62.838 Other muscle spasm (principal); M85.80 Other specified disorders of bone density and structure, unspecified site
CPT/HCPCS: 36415; 80048; 82306; 82550; 83735; 84100

== ENCOUNTER → 2018-10-06 14:18 | Outpatient (CLI) | payer MEDICARE, OTHER, SELFPAY ==
--- NOTE | 2018-10-06 14:24 | DI.CT.S_ITS ---
PROCEDURE: CT CHEST WO CON INDICATIONS: Routine f/u solitary lung nodule (NAHUN) TECHNIQUE: Noncontrast 2.0-2.5 mm thick sections acquired from the pulmonary apices to the posterior costophrenic angles. 7 mm thick coronal and sagittal MIP reformats were then acquired. A low radiation dose technique was utilized. COMPARISON: [facility], CR, CHEST 2 VIEW, 09/13/2015, 16:39. [facility], CT, ABDOMEN WITH CONTRAST, 03/29/2009, 8:21. FINDINGS: Image quality: Diagnostic, given the low radiation dose technique. Lungs and pleura: At the lateral aspect of the left upper lobe, axial level of the kapil, there is a subtle solid single pulmonary nodule, seen on series 3 image 54. Mediastinum: Heart size is normal. No pericardial effusion. No mediastinal adenopathy by size criteria. Thoracic aorta and central pulmonary arteries are normal in size. Esophagus is normal in caliber. No hiatal hernia. Bones and chest wall: No suspicious bony lesions. No vertebral body compression fractures. No axillary or supraclavicular adenopathy by size criteria. Thyroid gland is not well-seen by this noncontrast technique. Pacemaker device and dual chamber leads. Abdomen: Visualized upper abdomen solid organs and bowel loops appear normal in the absence of contrast. IMPRESSION: The clinical history indicates prior knowledge of a left upper lobe nodule but a comparison CT through that area is not found. Perhaps a comparison exists elsewhere. This should be obtained for review. It cannot be obtained then this study is considered the index study for followup. Please utilize the Fleischner society criteria for followup of sub-solid pure groundglass nodule 6 mm or larger below. Specifically, a followup CT in 6-12 months is recommended to confirm persistence and then followup noncontrast CT scanning every 2 years until 5 years of total followup from today is obtained. The recommendation discussed above would be significantly altered if an old comparison CT exists. Fleischner Society criteria for SOLID lung nodule followup. Nodule size (mm)Low-risk patientHigh-risk patient<6 (single or multiple)No routine followup.Optional CT at 12 months. 6-8 (single or multiple)CT at 6-12 months, then optional CT at 18-24 mo.CT at 6-12 months, then CT at 18-24 months. >8 (single)CT at 3 months, PET-CT, or biopsy. Same as for low-risk pts. >8 (multiple)CT at 3-6 months, then optional CT at 18-24 mo.CT at 3-6 months, then CT at 18-24 months. Fleischner Society criteria for SUB-SOLID lung nodule followup. Solitary pure ground-glass nodules<6 mm (ground glass or part solid)No followup needed. 6 mm or larger (ground glass)CT at 6-12 months to confirm persistence, then CT every 2 years until 5 years.6 mm or larger (part solid)CT at 3-6 months to confirm persistence, then annual CT until 5 years if unchanged and solid component remains <6 mm. Multiple sub-solid nodules<6 mmCT at 3-6 months, then CT consider at 2 & 4 years for high risk patients. [address] at 3-6 months. Subsequent management based on most suspicious lesions. Recommendations do not apply to lung cancer screening, patients with immunosuppression, or patients with known primary cancer. Dictated by: Reji Harmon M.D. on 10/06/2018 at 15:17 Approved by: Reji Harmon M.D. on 10/06/2018 at 15:23
== END ==
PROVIDERS: PCP Student in an Organized Health Care Education/Training Program; Visit Provider Student in an Organized Health Care Education/Training Program
DX: R91.1 Solitary pulmonary nodule (principal)
CPT/HCPCS: 71250

== ENCOUNTER → 2018-11-01 10:18 | Outpatient (CLI) | payer MEDICARE, OTHER, SELFPAY | PROVIDERS: PCP Student in an Organized Health Care Education/Training Program; Visit Provider Student in an Organized Health Care Education/Training Program | DX: M85.852 Other specified disorders of bone density and structure, left thigh (principal); Z78.0 Asymptomatic menopausal state; Z82.62 Family history of osteoporosis | CPT/HCPCS: 77080 ==

== ENCOUNTER → 2018-11-30 14:16 | Outpatient (CLI) | payer MEDICARE, OTHER, SELFPAY ==
[2018-11-30 16:10] LABS: BUN Creatinine Ratio 23.8 (6-22); Blood Urea Nitrogen 19 mg/dL (7-17); Estimated Glomerular Filt Rate > 60.0 mL/min (>60)
== END ==
PROVIDERS: PCP Student in an Organized Health Care Education/Training Program; Visit Provider Student in an Organized Health Care Education/Training Program
DX: R91.1 Solitary pulmonary nodule (principal)
CPT/HCPCS: 36415; 82565; 84520

== ENCOUNTER 2018-12-22 13:00 | Outpatient (RCR) | payer MEDICARE, OTHER, SELFPAY ==
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
== END 2019-03-08 09:11 | disposition home or self-care (01) ==
LOC: PHYS 13:00
PROVIDERS: PCP Student in an Organized Health Care Education/Training Program; Visit Provider Student in an Organized Health Care Education/Training Program
DX: M17.10 Unilateral primary osteoarthritis, unspecified knee (principal)
CPT/HCPCS: 97035; 97110; 97116; 97140; 97162

== ENCOUNTER → 2018-12-28 11:00 | Oncology outpatient (ONC) | payer MEDICARE, OTHER, SELFPAY ==
[2018-12-28] MEDS: ZOLEDRONIC ACID 5 MG in SODIUM CHLORIDE 0.9% 100 ML 318.75 ML IV (11:45)
[2018-12-28 16:48] VITALS: BP 120/69; PULSE 59; RESP 16; O2SAT 98
== END ==
LOC: ONC 11:02
PROVIDERS: PCP Student in an Organized Health Care Education/Training Program; Visit Provider Student in an Organized Health Care Education/Training Program
DX: M81.0 Age-related osteoporosis without current pathological fracture (principal)
CPT/HCPCS: 96365; J3489

== ENCOUNTER → 2019-02-03 14:24 | Outpatient (CLI) | payer MEDICARE, OTHER, SELFPAY ==
[2019-02-03 14:41] LABS: Bacteria Urine None Seen; RBC Urine None Seen (0-5/HPF); WBC Urine None Seen (0-5/HPF)
[2019-02-03 15:45] LABS: Appearance Urine UA CLEAR; Bilirubin Urine UA NEGATIVE (NEGATIVE); Color Urine UA YELLOW; Glucose Urine UA NEGATIVE (Negative); Ketones Urine UA NEGATIVE (NEGATIVE); Leukocyte Esterase Urine UA NEGATIVE (NEGATIVE); Nitrite Urine UA NEGATIVE (Negative); Occult Blood Urine UA NEGATIVE (Negative); Protein Urine UA NEGATIVE (Negative); Urobilinogen Urine UA 0.2 E.U./dL (0.2)
[2019-02-03 15:59] LABS: Culture Indicated Urine Cult Not Indicated; Urine Comments Microscopic Normal
== END ==
PROVIDERS: PCP Student in an Organized Health Care Education/Training Program; Visit Provider Student in an Organized Health Care Education/Training Program
DX: R10.9 Unspecified abdominal pain (principal)
CPT/HCPCS: 81001

== ENCOUNTER → 2019-02-06 09:18 | Outpatient (CLI) | payer MEDICARE, OTHER, SELFPAY ==
--- NOTE | 2019-02-06 09:20 | DI.US.S_ITS ---
PROCEDURE: US ABDOMEN LIMITED INDICATIONS: RIGHT UPPER QUADRANT PAIN TECHNIQUE: Real-time scanning was performed of the abdominal and retroperitoneal organs, with image documentation. COMPARISON: [facility], CT, ABDOMEN WITH CONTRAST, 03/29/2009, 8:21. [facility], CT, CT CHEST WO CON, 10/06/2018, 14:24. FINDINGS: Liver: Liver is normal in size and generally homogeneous in echotexture, but there are 2 areas of abnormality involving liver parenchyma. A hypoechoic area measuring 1.4 x 1.3 x 1.0 cm is at the superior left hepatic lobe without visualized elevated internal blood flow, indeterminate etiology. There also are 2 right hepatic presumed hemangiomas measuring up to 2.5 x 1.8 x 1.4 cm and 2.2 x 2.0 x 1.4 cm. These have not changed in size and are located at the subcapsular right anterior and right posterior hepatic segments, most consistent with hepatic hemangiomas previously seen by CT scanning 03/29/09. Gallbladder: Previously resected. Biliary ducts: Intrahepatic bile ducts are non-dilated. Extrahepatic bile duct caliber measures 4.2 mm. Normal is 6-7 mm or less in diameter, or 10 mm or less post-cholecystectomy. Pancreas: Visualized portions of the pancreas are sonographically normal. Spleen: Spleen is normal in size and homogeneous in echotexture. Kidneys: Kidneys are normal in size and echotexture. No hydronephrosis or nephrolithiasis. No solid masses. Aorta: Visualized aorta is normal in caliber at less than 3 cm. Iliacs: Proximal common iliac arteries are normal in caliber at less than 2.5 cm. IVC: Intrahepatic inferior vena cava is patent. Miscellaneous: No free abdominal fluid. IMPRESSION: 2 previously present hemangiomas are again seen, and there is a hypoechoic hepatic structure measuring up to 1.4 cm which requires followup to assess for change management consultant time in 3 and 6 months by targeted single organ hepatic ultrasound. Dictated by: Reji Harmon M.D. on 02/06/2019 at 11:15 Approved by: Reji Harmon M.D. on 02/06/2019 at 11:26
== END ==
PROVIDERS: PCP Student in an Organized Health Care Education/Training Program; Visit Provider Student in an Organized Health Care Education/Training Program
DX: R10.11 Right upper quadrant pain (principal); D18.09 Hemangioma of other sites; Z90.49 Acquired absence of other specified parts of digestive tract
CPT/HCPCS: 76705

== ENCOUNTER → 2019-02-07 08:35 | Outpatient (CLI) | payer MEDICARE, OTHER, SELFPAY ==
[2019-02-07 09:38] LABS: Alanine Aminotransferase 17 IU/L (9-52); Albumin 4.3 g/dL (3.5-5.0); Albumin Globulin Ratio 1.5 (1.0-2.8); Alkaline Phosphatase 55 U/L (38-126); Aspartate Aminotransferase 25 IU/L (14-36); BUN Creatinine Ratio 21.4 (6-22); Bilirubin Total 1.3 mg/dL (0.2-1.3); Blood Urea Nitrogen 15 mg/dL (7-17); Calcium 9.4 mg/dL (8.4-10.2); Carbon Dioxide 29 mmol/L (22-32); Chloride 102 mmol/L (98-107); Estimated Glomerular Filt Rate > 60.0 mL/min (>60); Globulin 2.9 g/dL (1.7-4.1); Glucose 91 mg/dL (80-110); HEMOLYSIS < 15 (0-50); Potassium 4.3 mmol/L (3.4-5.1); Sodium 138 mmol/L (137-145); Total Protein 7.2 g/dL (6.3-8.2)
[2019-02-07 10:05] LABS: Hepatitis B Surface Antigen NEGATIVE s/c (NEGATIVE)
[2019-02-09 14:03] LABS: Alpha Fetoprotein 5.7 ng/mL (< 6.1)
[2019-02-10 17:37] LABS: Hepatitis B Core Antibody Nonreactive (Nonreactive)
== END ==
PROVIDERS: PCP Student in an Organized Health Care Education/Training Program; Visit Provider Student in an Organized Health Care Education/Training Program
DX: R16.0 Hepatomegaly, not elsewhere classified (principal); R93.2 Abnormal findings on diagnostic imaging of liver and biliary tract
CPT/HCPCS: 36415; 80053; 82105; 86704; 87340

== ENCOUNTER → 2019-03-02 10:04 | Outpatient (CLI) | payer MEDICARE, OTHER, SELFPAY ==
--- NOTE | 2019-03-02 | DI.MG.S_ITS ---
BILATERAL DIGITAL SCREENING MAMMOGRAM 3D/2D WITH CAD: 03/02/2019 CLINICAL: Routine screening. Family history of breast cancer. Comparison is made to exams dated: 02/28/2018 mammogram, 01/12/2017 mammogram, 12/11/2015 mammogram, 11/20/2014 mammogram, and 10/04/2013 mammogram - [facility]. The tissue of both breasts is heterogeneously dense. This may lower the sensitivity of mammography. Current study was also evaluated with a Computer Aided Detection (CAD) system. A cardiac pacer device projects over the superior left chest/breast, resulting in imaging artifact. There is an irregular asymmetry with an indistinct margin in the left breast middle depth lateral region seen on the craniocaudal view only. No other significant masses, calcifications, or other findings are seen in either breast. IMPRESSION: INCOMPLETE: NEEDS ADDITIONAL IMAGING EVALUATION The irregular asymmetry in the left breast is indeterminate. Additional views with possible ultrasound are recommended. This exam was interpreted at Station ID: [id number]. NOTE: For mammograms, a report in lay terms will be sent to the patient. Approximately 15% of breast malignancies will not be visualized mammographically. In the management of a palpable breast mass, a negative mammogram must not discourage biopsy of a clinically suspicious lesion. Electronically Signed By: Antonio Garcia M.D. ecl/:03/03/2019 12:01:18 letter sent: Additional Imaging Needed ACR BI-RADS Category 0: Incomplete 3340F
== END ==
PROVIDERS: PCP Student in an Organized Health Care Education/Training Program; Visit Provider Student in an Organized Health Care Education/Training Program
DX: Z12.31 Encounter for screening mammogram for malignant neoplasm of breast (principal); Z80.3 Family history of malignant neoplasm of breast
CPT/HCPCS: 77063; 77067

== ENCOUNTER → 2019-03-20 14:26 | Outpatient (CLI) | payer MEDICARE, OTHER, SELFPAY ==
--- NOTE | 2019-03-20 14:29 | DI.MG.S_ITS ---
UNILATERAL LEFT DIGITAL DIAGNOSTIC MAMMOGRAM 3D/2D WITH ADDITIONAL VIEWS: 03/20/2019 CLINICAL: Additional evaluation requested from prior study. Comparison is made to exams dated: 03/02/2019 mammogram, 02/28/2018 mammogram, and 01/12/2017 mammogram - [facility]. The tissue of left breast is heterogeneously dense. This may lower the sensitivity of mammography. The indistinct asymmetry in the left breast middle depth lateral region seen on the craniocaudal view only is not seen on additional views. No other significant masses or calcifications are seen in the breast. IMPRESSION: There is no mammographic evidence of malignancy. A 1 year screening mammogram is recommended. This exam was interpreted at Station ID: [id number]. NOTE: For mammograms, a report in lay terms will be sent to the patient. Approximately 15% of breast malignancies will not be visualized mammographically. In the management of a palpable breast mass, a negative mammogram must not discourage biopsy of a clinically suspicious lesion. Electronically Signed By: Anoop tran/:03/22/2019 07:33:45 letter sent: Normal Exam ACR BI-RADS Category 2: Benign Finding(s) 3342F
== END ==
PROVIDERS: PCP Student in an Organized Health Care Education/Training Program; Visit Provider Student in an Organized Health Care Education/Training Program
DX: R92.8 Other abnormal and inconclusive findings on diagnostic imaging of breast (principal)
CPT/HCPCS: 77065; G0279

== ENCOUNTER → 2019-05-15 12:17 | Outpatient (CLI) | payer MEDICARE, OTHER, SELFPAY ==
--- NOTE | 2019-05-15 12:21 | DI.US.S_ITS ---
PROCEDURE: US ABDOMEN LIMITED INDICATIONS: FOLLOW-UP HEMAGIOMAS TECHNIQUE: Real-time scanning was performed of the abdominal and retroperitoneal organs, with image documentation. COMPARISON: [facility], US, US ABDOMEN LIMITED, 02/06/2019, 9:36. FINDINGS: Liver: The liver is 12.6 cm in length and demonstrates normal overall echotexture. A hypoechoic mass is visualized within the left lobe which measures 1.3 x 1.0 x 1.0 cm (previously measured 1.4 x 1.3 x 1.0 cm. 2 echogenic masses are redemonstrated within the right liver and are similar in size to the prior study. A 6 mm diameter simple cyst is redemonstrated within the right hepatic lobe. IMPRESSION: 1. Stable hepatic hemangiomas as above. 2. Hypoechoic mass within the left hepatic lobe redemonstrated and similar in size when compared with the prior ultrasound dated 02/06/19. Although this may represent an atypical hemangioma, neoplasm cannot be excluded. If further characterization is warranted, consider hepatic mass protocol MRI or CT. Dictated by: Carina Parsons M.D. on 05/15/2019 at 15:57 Approved by: Carina Parsons M.D. on 05/15/2019 at 16:01
== END ==
PROVIDERS: PCP Student in an Organized Health Care Education/Training Program; Visit Provider Student in an Organized Health Care Education/Training Program
DX: D18.03 Hemangioma of intra-abdominal structures (principal); K76.89 Other specified diseases of liver
CPT/HCPCS: 76705

== ENCOUNTER → 2020-03-04 11:31 | Outpatient (CLI) | payer MEDICARE, OTHER, SELFPAY ==
--- NOTE | 2020-03-04 | DI.MG.S_ITS ---
BILATERAL DIGITAL SCREENING MAMMOGRAM 3D/2D WITH CAD: 03/04/2020 CLINICAL: Routine screening. Family history of breast cancer. Comparison is made to exams dated: 03/02/2019 mammogram, 02/28/2018 mammogram, and 01/12/2017 mammogram - [facility]. The tissue of both breasts is heterogeneously dense. This may lower the sensitivity of mammography. Current study was also evaluated with a Computer Aided Detection (CAD) system. No significant masses, calcifications, or other findings are seen in either breast. There has been no significant interval change. IMPRESSION: NEGATIVE There is no mammographic evidence of malignancy. A 1 year screening mammogram is recommended. This exam was interpreted at Station ID: [id number]. NOTE: For mammograms, a report in lay terms will be sent to the patient. Approximately 15% of breast malignancies will not be visualized mammographically. In the management of a palpable breast mass, a negative mammogram must not discourage biopsy of a clinically suspicious lesion. Electronically Signed By: Urbano esparza/gretchen:03/04/2020 12:37:12 letter sent: Normal Exam ACR BI-RADS Category 1: Negative [id number]
== END ==
PROVIDERS: PCP Student in an Organized Health Care Education/Training Program; Referring Provider Student in an Organized Health Care Education/Training Program; Visit Provider Student in an Organized Health Care Education/Training Program
DX: Z12.31 Encounter for screening mammogram for malignant neoplasm of breast (principal); Z80.3 Family history of malignant neoplasm of breast
CPT/HCPCS: 77063; 77067

== ENCOUNTER 2020-03-13 11:39 | Emergency (ER) | payer MEDICARE, OTHER, SELFPAY ==
[2020-03-13 11:49] VITALS: BMI 24.9
[2020-03-13 11:54] VITALS: BP 159/81; PULSE 77; RESP 17; TEMP 36.7; O2SAT 99
--- NOTE | 2020-03-13 12:07 | ED_ITS ---
HPI - Extremity Injury (Upper) <ERIC Crow - Last Filed: 03/13/20 13:25> General Chief Complaint: Extremity Injury, Upper Stated Complaint: cat bite left hand last night Time Seen by Provider: 03/13/20 11:55 Source: patient Mode of arrival: Ambulatory Limitations: no limitations History of Present Illness HPI narrative: This is a 70 year female, nonsmoker, [id number], presents to ED with her own pet cat bite which occurred yesterday morning on her left dorsal hand. According to the patient, was pushing her cat away from her chest in sleep and she became irritated before bitten her. Patient reports intact sensation and mobility distal to injure side. Patient denies fever, chills, nausea or vomiting. Patient had cleaned the site with hydrogen peroxide after the injury and use triple antibiotic ointment. She noticed increase in size and redness as doubled when she woke up this morning and became concerned. She was advised to come to ED for an evaluation and treatment when she called her doctor's office today. Related Data Home Medications Medication Instructions Recorded Confirmed CHOLECALCIFEROL (VITAMIN D) 3,000 iu PO QDAY #0 07/24/11 03/29/19 Metoprolol Tartrate (LOPRESSOR) 12.5 mg PO QDAY #0 07/24/11 03/29/19 CALCIUM/PHYTONADIONE/SODIUM/ 1 ctb PO QDAY #0 12/31/11 03/29/19 (#VIACTIV CALCIUM) aspirin 81 mg PO QDAY #0 12/31/11 03/29/19 Chondroitin Sulfate/Glucosam 1,500 cap PO QDAY #0 11/14/12 03/29/19 (GLUCOSAMINE/CHONDROITIN) OMEGA-3 FATTY ACIDS/STEVIA E 1 mg PO BID #0 11/14/12 03/29/19 (#COROMEGA OMEGA-3 12 MG-650 MG-10 MG-3 IU) VITAMIN B COMPLEX (Vitamin B 1 tab PO QDAY #0 11/14/12 03/29/19 Complex) ascorbic acid (vitamin C) 500 mg PO QDAY #0 11/14/12 03/29/19 vitamins A,C,C-zyze-bqiyrq 14,320 1 cap PO BID 01/04/19 03/29/19 unit-226 mg-200 unit capsule Previous Rx's Medication Instructions Recorded amoxicillin-pot clavulanate 1 tab PO BID 7 Days #14 tab 03/13/20 [Augmentin] Allergies Allergy/AdvReac Type Severity Reaction Status Date / Time Iodinated Contrast Media Allergy Severe ANAPHYLAXIS Verified 02/03/19 14:03 [Iodinated Contrast Media - IV Dye] monosodium glutamate Allergy Severe ANAPHYLAXIS Verified 02/03/19 14:03 epinephrine Allergy Intermediate HEART GOES Verified 02/03/19 14:03 TO FAST oxymetazoline Allergy Mild difficulty Verified 02/03/19 14:03 [From AFRIN (OXYMETAZOLINE)] breathing shellfish derived Allergy Mild Verified 02/03/19 14:03 codeine AdvReac Mild GI Verified 02/03/19 14:03 INTOLERANCE erythromycin base AdvReac Mild GI Verified 02/03/19 14:03 INTOLERANCE Penicillins AdvReac Mild GI Verified 02/03/19 14:03 INTOLERANCE hydrocodone AdvReac Unknown GI, Verified 02/03/19 14:03 DIZZINESS avacodos Allergy Severe anaphalatic Uncoded 02/03/19 14:03 shell fish Allergy Severe throat Uncoded 02/03/19 14:03 swelling Review of Systems <ERIC Crow - Last Filed: 03/13/20 13:25> Review of Systems Narrative: General: Denies fever, chills, fatigue, malaise, sweats. HEENT: Denies sinus pain, ear pain, sore throat, difficulty swallowing, dizziness. Respiratory: Denies dyspnea, cough, wheezing, hemoptysis, sputum. Cardiovascular: Denies chest pain, palpitations, orthopnea, edema. Gastrointestinal: Denies nausea, vomiting, abdominal pain, diarrhea, constipation, melena. : Denies dysuria, frequency, incontinence, hematuria, urinary retention. Musculoskeletal: See HPI Skin: See HPI Neurologic: Denies weakness, headache, numbness, change in speech, confusion, seizures, incoordination. Psychiatric: No concerning psychosocial issues. 12-point review of systems is negative except for those stated above. Patient History <ERIC Crow - Last Filed: 03/13/20 13:25> Medical History Abnormal Pap smear of cervix (Resolved ~1999) Abnormally prolonged clotting time (Chronic) Arthritis (Chronic) Bradycardia (Chronic) Cardiac arrhythmia (Chronic ~1971) Chicken pox (Resolved) Complete AV block (Chronic) DDD (degenerative disc disease) (Chronic) Endometriosis (Resolved) Foot pain (Chronic) Hemorrhoids (Resolved 1988) History of heavy periods (Resolved) Lumbar spinal stenosis (Chronic) Macular degeneration (Chronic 1991) Measles (Resolved) Metatarsal fracture (Resolved 1995) Mumps (Resolved) Painful menstrual periods (Resolved) PSVT (paroxysmal supraventricular tachycardia) (Chronic) RLS (restless legs syndrome) (Chronic) Rupture of tympanic membrane (Resolved) SA node dysfunction (Chronic) Sinus bradycardia (Chronic) Stenosis of innominate vein (Chronic 2015) Stress incontinence (Chronic) Tinnitus (Chronic) Surgical History Anesthesia (Resolved) Elective replacement indicated for cardiac pacemaker battery at end of lifespan (Resolved 10/2015) Status post arthroscopy (Resolved) Status post laparoscopic cholecystectomy (Resolved 1997) Status post placement of cardiac pacemaker (Resolved 06/2010) Status post placement of implantable loop recorder (Resolved 11/2009) Status post removal of cervix (Resolved) Family History Father Recurrent incisional hernia with complication Grandfather Brain aneurysm Grandmother Diabetes mellitus Mother Fractured hip Sepsis Diabetes mellitus Grandfather CVA (cerebral vascular accident) Grandmother Stomach cancer Social History Smoking Status: Never smoker Smoking Status: Never smoker Substance Use Type: does not use Exam <ERIC Crow - Last Filed: 03/13/20 13:25> Narrative Exam Narrative: General appearance: well developed, well nourished, in no acute distress. Head: normocephalic, atraumatic, no scalp lesions, non-tender. ENT: Hearing grossly intact. Airway patent. Neck/Thyroid: neck supple, full range of motion, no visible masses or meningeal signs. No JVD, non-tender without lymphadenopathy. Skin: no suspicious rashes, lesions over visible areas. Warm and dry and approp riate color for ethnicity. Heart: no clubbing, no cyanosis, no edema. Lungs: Breathing even and unlabored. No stridor. No accessory muscles used. Able to speak in full sentences. Chest: normal shape and expansion. Abdomen: non-obese, non-distended. Neurologic: alert and oriented. Cognitive exam, [employer] and PNS grossly intact on informal exam. Psych: good eye contact, normal affect. Initial Vital Signs Initial Vital Signs: Vital Signs Temperature 98.0 F 03/13/20 11:54 Pulse Rate 77 03/13/20 11:54 Respiratory Rate 17 03/13/20 11:54 Blood Pressure 159/81 H 03/13/20 11:54 Pulse Oximetry 99 03/13/20 11:54 Extrem Left upper extremity: wrist Details: normal to inspection; no tenderness and no swelling and hand Details: abnormal to inspection, neuromotor exam normal, neurosensory exam normal, tendon exam normal, tenderness, vascular exam Details: radial pulse present and normal capillary refill, normal ROM of fingers, swelling, puncture wound and other (erythema to dorsal metacarpal); no unusual warmth <Reynold Robbins MD - Last Filed: 03/19/20 07:26> Initial Vital Signs Initial Vital Signs: Vital Signs Temperature 98.0 F 03/13/20 11:54 Pulse Rate 77 03/13/20 11:54 Respiratory Rate 17 03/13/20 11:54 Blood Pressure 159/81 H 03/13/20 11:54 Pulse Oximetry 99 03/13/20 11:54 Scores <ERIC Crow - Last Filed: 03/13/20 13:25> GCS Ismael coma scale eye opening: Spontaneous Arp coma scale verbal response: Orientated Arp coma scale motor response: Obey commands Ismael coma scale total score: 15 Course <ERIC Crow - Last Filed: 03/13/20 13:25> Orders Ordered: Discontinued Medications Amoxicillin/Clavulanate Potassium (Augmentin 875-125 Mg) 1 tab PO NOW ONE Stop: 03/13/20 12:35 Last Admin: 03/13/20 13:01 Dose: 1 tab Documented by: DIMASONENic Vital Signs Vital signs: Vital Signs - 8 hr 03/13/20 11:54 03/13/20 13:09 Temperature 98.0 F Pulse Rate 77 62 Respiratory Rate 17 Blood Pressure 159/81 H 122/66 Pulse Oximetry 99 99 <Reynold Robbins MD - Last Filed: 03/19/20 07:26> Orders Ordered: Discontinued Medications Amoxicillin/Clavulanate Potassium (Augmentin 875-125 Mg) 1 tab PO NOW ONE Stop: 03/13/20 12:35 Last Admin: 03/13/20 13:01 Dose: 1 tab Documented by: DIMASONENic Vital Signs Vital signs: Vital Signs - 8 hr 03/13/20 11:54 03/13/20 13:09 Temperature 98.0 F Pulse Rate 77 62 Respiratory Rate 17 Blood Pressure 159/81 H 122/66 Pulse Oximetry 99 99 MDM - Extremity Injury (Upper) <ERIC Crow - Last Filed: 03/13/20 13:25> Differential Diagnosis Differential diagnosis: Likely other (Cellulitis, foreign body, fracture of hand) Medical Records Attestation: I reviewed the patient's medical records. Imaging Data XR-Hand LT: Radiologist's Impression: [address] [address] XRay Report Signed Patient: Gila Tinsley BMR#: [id number] : [id number]:[id number] Age/Sex: 70 / FDate of Service: 03/13/20 Loc: ED Accession Number: [id number] Procedure: XR hand LT min 3V Ordering Provider: Rodrick Borges PROCEDURE: XR HAND LT MIN 3V INDICATIONS: s/p cat bite TECHNIQUE: 3 views of the hand(s) acquired. COMPARISON: [facility], HAND 3V RIGHT, 01/04/2008, 11:38. FINDINGS: Bones: No fractures or dislocations. Carpal bones are normally aligned. No suspicious bony lesions. Soft tissues: No suspicious soft tissue calcifications. No radiopaque foreign body. No soft tissue gas. IMPRESSION: No evidence acute bony abnormality of the left hand. No radiopaque foreign body. No soft tissue gas. Dictated by: Cesar Barragan M.D. on 03/13/2020 at 12:31 Approved by: Cesar Barragan M.D. 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 She noticed increasing redness and swelling which has doubled when she woke up this morning. She has intact sensation and mobilit y with distal pulse on affected hand. The redness and swelling has outlined with skin pen. X-ray test does not show acute findings such as fracture, dislocation or foreign body. Patient was medicated with Augmentin before discharged to home and b.i.d. scheduled for 7 day remaining course. Patient advised to watch for worsening symptoms and follow-up with primary care physician in 2-3 days to recheck wound. Advised to keep wound clean dry and intact been using [id number] antibiotic medication ointment. Patient verbalized understanding and agreement with the treatment plan. Discharge Plan Departure Patient Disposition: Home Clinical Impression: Cat bite involving extremity Discharge Date/Time: 03/13/20 13:10 Instructions: DI for Cat Bite Activity Restrictions/Additional Instructions: You have been diagnosed with [cat bite on left dorsal hand. X-ray findings no acute fractures or foreign body. You were medicated with 1st dose of Augmentin in ED]. What to do: *Take your medications as directed. Please take twice a day for next 7 days. *Follow up with your primary care provider in 2-3 days, call for an appointment. Let them know you were seen in the ED and that we asked you to be seen in follow up. *Return to ED if you have any new, worsening, or concerning symptoms, such as [fever, increasing redness, pain, swelling, decrease sensation or increasing weakness on affected limb, chest pain, breathing difficulty, unable to tolerate fluids or any acute concerns]. Prescriptions: New amoxicillin-pot clavulanate [Augmentin] 875-125 mg tablet 1 tab PO BID 7 Days Qty: 14 RF: 0 No Action Metoprolol Tartrate (LOPRESSOR) 12.5 mg PO QDAY Qty: 0 RF: 0 CHOLECALCIFEROL (VITAMIN D) 3,000 iu PO QDAY Qty: 0 RF: 0 aspirin 81 MG tablet,delayed release (DR/EC) 81 mg PO QDAY Qty: 0 RF: 0 CALCIUM/PHYTONADIONE/SODIUM/ (#VIACTIV CALCIUM) 1 ctb PO QDAY Qty: 0 RF: 0 ascorbic acid (vitamin C) 500 MG tablet 500 mg PO QDAY Qty: 0 RF: 0 Chondroitin Sulfate/Glucosam (GLUCOSAMINE/CHONDROITIN) 1,500 cap PO QDAY Qty: 0 RF: 0 OMEGA-3 FATTY ACIDS/STEVIA E (#COROMEGA OMEGA-3 12 MG-650 MG-10 MG-3 IU) 1 mg PO BID Qty: 0 RF: 0 VITAMIN B COMPLEX (Vitamin B Complex) 1 tab PO QDAY Qty: 0 RF: 0 PreserVision AREDS 14,320-226-200 cwoa-[id number] capsule 1 cap PO BID RF: 0 Referrals: Anand Collier MD [Primary Care Provider] - <Reynold Robbins MD - Last Filed: 03/19/20 07:26> Cosign ED Attending Cosignature Attestation: I was immediately available in the department for consultation. This documentation has been reviewed and I agree with assessment and plan. Supervised by Reynold Robbins MD
[2020-03-13] MEDS: AMOXICILLIN/CLAV 875/125 MG 1 TAB PO (13:01)
[2020-03-13 13:09] VITALS: BP 122/66; PULSE 62; O2SAT 99
== END 2020-03-13 13:10 | disposition home or self-care (01) ==
PROVIDERS: Emergency Provider Nurse Practitioner Family; PCP Student in an Organized Health Care Education/Training Program
DX: S61.452A Open bite of left hand, initial encounter (principal); W55.01XA Bitten by cat, initial encounter
CPT/HCPCS: 73130; 99283; 99284

== ENCOUNTER → 2020-03-29 15:12 | Outpatient (CLI) | payer MEDICARE, OTHER, SELFPAY | PROVIDERS: PCP Student in an Organized Health Care Education/Training Program; Referring Provider Student in an Organized Health Care Education/Training Program; Visit Provider Student in an Organized Health Care Education/Training Program | DX: M85.852 Other specified disorders of bone density and structure, left thigh (principal); Z78.0 Asymptomatic menopausal state; Z82.62 Family history of osteoporosis | CPT/HCPCS: 77080 ==

== ENCOUNTER → 2020-04-23 14:45 | Outpatient (CLI) | payer MEDICARE, OTHER, SELFPAY ==
--- NOTE | 2020-04-23 14:53 | DI.RAD.S_ITS ---
PROCEDURE: XR HIP W PEL IF DONE LT 2V INDICATIONS: Left hip pain TECHNIQUE: AP pelvis with lateral view(s) of the left hip(s). COMPARISON: [facility], , [id number] W PEL IF PERFORMED, 01/30/2016, 15:44. FINDINGS: Bones: No fractures or dislocations. Pelvic ring appears intact. No suspicious bony lesions. Mild joint narrowing with periarticular osteophyte formation. Degenerative disc and facet disease involves the inferior lumbar spine. Soft tissues: The visualized bowel gas pattern is normal. No suspicious soft tissue calcifications. IMPRESSION: Mild symmetric hip joint degeneration. Dictated by: Alonso NOLAND Interpreted: Tani Arce MD on 04/23/2020 at 17:00 Approved by: Tani Arce M.D. on 04/23/2020 at 17:23
== END ==
LOC: LAB 14:49 → RAD 14:50
PROVIDERS: PCP Student in an Organized Health Care Education/Training Program; Referring Provider Student in an Organized Health Care Education/Training Program; Visit Provider Student in an Organized Health Care Education/Training Program
DX: S79.912A Unspecified injury of left hip, initial encounter (principal); M25.552 Pain in left hip; M16.12 Unilateral primary osteoarthritis, left hip; X58.XXXA Exposure to other specified factors, initial encounter
CPT/HCPCS: 73502

== ENCOUNTER → 2020-08-19 08:29 | Outpatient (CLI) | payer MEDICARE, OTHER, SELFPAY ==
[2020-08-19 10:01] LABS: COVID19 -Nasal RAPID Negative (Negative)
== END ==
PROVIDERS: PCP Student in an Organized Health Care Education/Training Program; Visit Provider Physician Assistant
DX: Z20.822 Contact with and (suspected) exposure to COVID-19 (principal)
CPT/HCPCS: 87635; C9803

== ENCOUNTER 2020-08-21 08:45 | Day surgery (SDC) | payer MEDICARE, OTHER, SELFPAY ==
--- NOTE | 2020-08-20 19:35 | PM.PREOP ---
Pre-operative Note COVID-19 COVID-19 status: Negative Interval Note History & Physical reviewed/Exam performed by Physician: Yes Changes to H&P: No
--- NOTE | 2020-08-21 07:50 | PM.OP.1 ---
Operative Date/Time/Diagnoses Date of procedure: 08/21/20 Time of procedure: 09:45 Procedure & Clinicians Procedure: Preoperative diagnoses: 1. Left nuclear sclerotic and cortical cataract. 2. Desire for a multifocal intra-ocular lens implant. 3. Cardiac pacemaker dual-chamber. 4. History of vasovagal response. Postoperative diagnoses: 1. Cataract removed by phacoemulsification with placement of a Panoptix multi focal posterior chamber intraocular lens. Procedure: Phacoemulsification with posterior chamber intraocular lens implant Surgeon: Shayy Bean MD Complications: None Specimen: None Implant: [id number]+20.0 Blood loss: None Anesthesia: Retrobulbar with monitored standby Description of procedure: Patient presents with a complaint of decreased vision due to cataract which is affecting activities of daily living both distance and near. The patient wants surgery to improve vision. She would like a multifocal implant and understands there is still a chance of her wearing glasses any residual refractive error. She has a dual-chamber pacemaker and is stable. She understands the extra risk of operating during the COVID-19 epidemic and desires to proceed. She is tested COVID negative within 72 hours prior to the surgery. The patient was taken to the operating room and given IV sedation. A retrobulbar block consisting of 6 cc of 2% xylocaine without epinephrine mixed half and half with 0.5% Marcaine with 1 cc of hyaluronidase added is placed between the medial and lateral 1/3 of the inferior orbital rim. The eye is manually massaged for 30 sec, prepped using Betadine solution, and draped in the usual sterile fashion. Temporal approach was made, a 1 mm side-port incision was made 90? from the proposed clear corneal incision position. Phenylephrine 1.5% mixed with 1% xylocaine 0.2 cc was placed into the anterior chamber. Viscoat followed by Healon was then placed. A 2.6 mm clear incision with a 2.6 mm blade was placed. A 360 degree capsulorrhexis style capsulotomy was then performed with a cystitome needle on a [employer]. Hydrodelineation and hydrodissection were performed. The phacoemulsification unit is introduced, and sculpting notice used to groove the central lens. It is then removed in chopping mode. Epi nucleus is removed with epinuclear mode and irrigation aspiration was used to remove the peripheral cortex. The posterior capsule is polished. The intraocular lens is selected, inspected, power confirmed, and placed in the posterior chamber and carefully centered to the visual axis. The wound was stromally hydrated and tested for leaks, there was none and it was left sutureless. Vigamox 0.1 cc was placed into the anterior chamber. Kenalog 0.2 cc was placed in the superior subconjunctival space. A drop of antibiotic and was placed and the eye was patched and shielded. The patient was stable and returned to the recovery room in excellent condition. Dictated by: Shayy Bean MD Copy to: [facility] Same procedure as scheduled: Yes
[2020-08-21] MEDS: PROPARACAINE 0.5% OPHTH SOL 2 DROPS EYE-OP (09:08)
[2020-08-21] MEDS: CATARACT EYE COMPOUND (10 DROPS/SYRINGE) 3 DROPS EYE-OP (09:09)
[2020-08-21 09:12] VITALS: BP 120/76; PULSE 66; RESP 16; TEMP 36.7; O2SAT 100; BMI 24.1
--- NOTE | 2020-08-21 09:24 | SUR.OPER ---
Supine on eye stretcher, head on extension cradle secured with tape. Arms tucked at sides with blanket. Pillow under knees.
[2020-08-21] MEDS: ERYTHROMYCIN OPHTH 1 GM OINT 1 APPLIC EYE-LEFT (10:09)
[2020-08-21] MEDS: PHENYLEPHRINE/LIDOCAINE VIAL (OR) 0.2 ML EYE-OP (10:09)
[2020-08-21] MEDS: LIDOCAINE 2% 4 ML, BUPIVACAINE 0.5% (PF) 4 ML, HYALURONIDASE 150 UNIT INJ (10:10)
[2020-08-21] MEDS: TRIAMCINOLONE 50 MG/5 ML VIAL INJ (10:11)
[2020-08-21] MEDS: MOXIFLOXACIN INJ 5 MG/ML VIAL EYE-OP (10:11)
[2020-08-21] MEDS: CHONDROIDTIN/SOD HYALURONATE 1.05 ML SYRINGE INTRAOCULA (10:12)
[2020-08-21] MEDS: HYALURONATE SODIUM 10 MG/ML SYRINGE INJ (10:12)
[2020-08-21] MEDS: BALANCED SALT IRRIG SOLN NO.2 500 ML, EPINEPHrine 1 MG IRR (10:13)
[2020-08-21 10:45] VITALS: BP 124/70; PULSE 59; RESP 16; TEMP 36.8; O2SAT 99
== END 2020-08-21 11:10 | disposition home or self-care (01) ==
LOC: OR 08:46
PROVIDERS: PCP Student in an Organized Health Care Education/Training Program; Referring Provider Student in an Organized Health Care Education/Training Program; Visit Provider Ophthalmology
PROC: (CPT 66984; principal; 2020-08-21 09:45)
DX: H25.812 Combined forms of age-related cataract, left eye (principal); Z95.0 Presence of cardiac pacemaker
CPT/HCPCS: 66984; J0171; J2704; J3301; J3470; V2788

== ENCOUNTER → 2020-10-15 08:34 | Outpatient (CLI) | payer MEDICARE, OTHER, SELFPAY ==
[2020-10-16 14:34] LABS: Fecal Immunochemical Test Negative (Negative)
== END ==
PROVIDERS: PCP Student in an Organized Health Care Education/Training Program; Referring Provider Student in an Organized Health Care Education/Training Program; Visit Provider Student in an Organized Health Care Education/Training Program
DX: Z12.11 Encounter for screening for malignant neoplasm of colon (principal)
CPT/HCPCS: 82274

== ENCOUNTER → 2020-11-11 09:33 | Outpatient (CLI) | payer MEDICARE, OTHER, SELFPAY ==
[2020-11-11 14:25] LABS: COVID19 -Nasal RAPID Negative (Negative)
== END ==
PROVIDERS: PCP Student in an Organized Health Care Education/Training Program; Visit Provider Physician Assistant
DX: Z20.822 Contact with and (suspected) exposure to COVID-19 (principal)
CPT/HCPCS: 87635; C9803

== ENCOUNTER 2020-11-13 08:36 | Day surgery (SDC) | payer MEDICARE, OTHER, SELFPAY ==
--- NOTE | 2020-11-12 19:27 | PM.PREOP ---
Pre-operative Note COVID-19 COVID-19 status: Negative Interval Note History & Physical reviewed/Exam performed by Physician: Yes Changes to H&P: No H&P completed within 30 days and has changed as indicated here:: Has been taking 81 mg aspirin daily.
--- NOTE | 2020-11-12 19:28 | P.OP_ITS ---
Operative Date/Time/Diagnoses Date of procedure: 11/13/20 Time of procedure: 09:45 Procedure & Clinicians Procedure: Preoperative diagnoses: 1. Right complex nuclear sclerotic and cortical cataract. 2. Dual-chamber cardiac pacemaker. 3. Desire for Vivity specialty lens to enhance range of vision 4. History of vasovagal response. Postoperative diagnoses: 1. Cataract removed by phacoemulsification with placement of posterior chamber intraocular lens. Capsular dye used for better visibility. Procedure: Phacoemulsification with posterior chamber intraocular lens implant Surgeon: Shayy Bean MD Complications: None Specimen: None Implant: Vivity [id number]+20.5 Blood loss: None Anesthesia: Retrobulbar with monitored standby Description of procedure: Patient presents with a complaint of decreased vision due to cataract which is affecting activities of daily living distance and near. The patient wants surgery to improve vision. She has a Panoptix intraocular lens implant in left and has had some issues with imaging glare though it is well centered. Therefore this eye has been delayed for several months while she adjusted. This has created more advanced cataract and she now will require capsular dye to proceed. She would like a visit to the intra- ocular lens in this to increase distance vision and lessen aberration. She understands the extra risk of surgery during the COVID-19 epidemic and desires to proceed. 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 A retrobulbar block consisting of 6 cc of 2% xylocaine without epinephrine mixed half and half with 0.5% Marcaine with 1 cc of hyaluronidase added is placed between the medial and lateral 1/3 of the inferior orbital rim. The eye is manually massaged for 30 sec, prepped using Betadine solution, and draped in the usual sterile fashion. Temporal approach was made, a 1 mm side-port incision was made 90? from the proposed clear corneal incision position. Phenylephrine 1.5% mixed with 1% xylocaine 0.2 cc was placed into the anterior chamber. An air bubble was placed followed by Visudyne capsular dye to coat the anterior capsule as there was no red reflex. The air bubble was then irrigated out with BSS. Viscoat followed by Healon was then placed. A 2.6 mm clear incision with a 2.6 mm blade was placed. A 360 degree capsulorrhexis style capsulotomy was then performed with a cystitome needle on a Healon greatly aided by the capsular dye. Hydrodelineation and hydrodissection were performed. The phacoemulsification unit is introduced, and sculpting notice used to groove the central lens. It is then removed in chopping mode. Epi nucleus is removed with epinuclear mode and irrigation aspiration was used to remove the peripheral cortex. The posterior capsule is polished. The intraocular lens is selected, inspected, power confirmed, and placed in the posterior chamber and is well centered. The wound was stromally hydrated and tested for leaks, there was none and it was left sutureless. Vigamox 0.1 cc was placed into the anterior chamber. Kenalog 0.2 cc was placed in the superior subconjunctival space. A drop of antibiotic and was placed and the eye was patched and shielded. The patient was stable and returned to the recovery room in excellent condition. Dictated by: Shayy Bean MD Copy to: [facility] Same procedure as scheduled: Yes
[2020-11-13 09:06] VITALS: BP 137/79; PULSE 74; RESP 16; TEMP 36.6; O2SAT 100; BMI 24.7
[2020-11-13] MEDS: PROPARACAINE 0.5% OPHTH SOL 2 DROPS EYE-OP (09:14)
[2020-11-13] MEDS: CATARACT EYE COMPOUND (10 DROPS/SYRINGE) 3 DROPS EYE-OP (09:21)
[2020-11-13] MEDS: MOXIFLOXACIN INJ 4 MG/0.8 ML VIAL 0.5 MG EYE-OP (10:35)
[2020-11-13] MEDS: CHONDROIDTIN/SOD HYALURONATE 1.05 ML SYRINGE INTRAOCULA (10:35)
[2020-11-13] MEDS: HYALURONATE SODIUM 10 MG/ML SYRINGE INJ (10:35)
[2020-11-13] MEDS: PHENYLEPHRINE/LIDOCAINE VIAL (OR) 0.2 ML EYE-OP (10:36)
[2020-11-13] MEDS: ERYTHROMYCIN OPHTH 1 GM OINT 1 APPLIC EYE-RIGHT (10:36)
[2020-11-13] MEDS: TRYPAN BLUE 0.5 ML SYRINGE INJ (10:37)
[2020-11-13] MEDS: TRIAMCINOLONE 50 MG/5 ML VIAL INJ (10:37)
[2020-11-13] MEDS: LIDOCAINE 2% 4 ML, BUPIVACAINE 0.5% (PF) 4 ML, HYALURONIDASE 150 UNIT INJ (10:38)
[2020-11-13] MEDS: BALANCED SALT IRRIG SOLN NO.2 500 ML, EPINEPHrine 1 MG IRR (10:38)
--- NOTE | 2020-11-13 10:39 | SUR.OPER ---
ERYTHROMYCIN OINTMENT WAS OKAYED TO GIVE PER DR STERLING. PT STATES ERYTHROMYCIN CAUSES GI UPSET
== END 2020-11-13 11:12 | disposition home or self-care (01) ==
LOC: OR 08:37
PROVIDERS: PCP Student in an Organized Health Care Education/Training Program; Referring Provider Student in an Organized Health Care Education/Training Program; Visit Provider Ophthalmology
PROC: (CPT 66982; principal; 2020-11-13 09:45)
DX: H25.811 Combined forms of age-related cataract, right eye (principal); Z95.0 Presence of cardiac pacemaker
CPT/HCPCS: 66982; J0171; J2704; J3301; J3470; V2788

== ENCOUNTER → 2020-12-20 10:42 | Outpatient (CLI) | payer MEDICARE, OTHER, SELFPAY ==
--- NOTE | 2020-12-20 10:43 | DI.CT.S_ITS ---
PROCEDURE: CT CHEST WO CON INDICATIONS: F/u lung nodule, check for stability TECHNIQUE: Noncontrast 5 mm thick sections acquired from the pulmonary apices to the posterior costophrenic angles. 1 mm lung window, 5 mm thick coronal and sagittal and 7 mm axial MIP reformats were then acquired. For radiation dose reduction, the following was used: automated exposure control, adjustment of mA and/or kV according to patient size. COMPARISON: [facility], CT, CT CHEST WO [facility], 10/06/2018, 14:24. FINDINGS: Image quality: Excellent. Lungs and pleura: In the lateral aspect of the left upper lobe, there is a ground-glass nodule measuring 0.8 x 0.7 cm measured in the axial plane, stable compared to the prior study. The lungs are otherwise clear. No acute air space opacities. No pleural effusions or pneumothorax. Central and peripheral airways are patent and normal in caliber. Mediastinum: Heart size is normal. Dual lead left-sided cardiac pacemaker is present. No pericardial effusion. No mediastinal adenopathy by size criteria. Thoracic aorta and central pulmonary arteries are normal in size. Esophagus is normal in caliber. No hiatal hernia. Bones and chest wall: No suspicious bony lesions. Degenerative disc height loss and endplate spurs in the thoracic spine. No vertebral body compression fractures. No axillary or supraclavicular adenopathy by size criteria. Thyroid gland is diminutive . Abdomen: Visualized upper abdominal solid organs and bowel loops appear normal in the absence of contrast. IMPRESSION: 1. Stable size of 8 mm ground-glass left upper lobe lung nodule. While this is most likely post inflammatory, indolent or low-grade carcinoma can have this appearance. Follow-up chest CT in another two years is recommended. Dictated by: Jaclyn العلي M.D. on 12/20/2020 at 15:07 Approved by: Jaclyn العلي M.D. on 12/20/2020 at 15:13
== END ==
PROVIDERS: PCP Student in an Organized Health Care Education/Training Program; Referring Provider Student in an Organized Health Care Education/Training Program; Visit Provider Student in an Organized Health Care Education/Training Program
DX: R91.1 Solitary pulmonary nodule (principal); Z95.0 Presence of cardiac pacemaker
CPT/HCPCS: 71250

== ENCOUNTER → 2021-05-07 11:23 | Outpatient (CLI) | payer MEDICARE, OTHER, SELFPAY ==
--- NOTE | 2021-05-07 | DI.MG.S_ITS ---
BILATERAL DIGITAL SCREENING MAMMOGRAM 3D/2D WITH CAD: 05/07/2021 CLINICAL: Routine screening. Family history of breast cancer. Comparison is made to exams dated: 03/04/2020 mammogram, 03/20/2019 mammogram, 03/02/2019 mammogram, and 02/28/2018 mammogram - [facility]. The tissue of both breasts is heterogeneously dense. This may lower the sensitivity of mammography. Current study was also evaluated with a Computer Aided Detection (CAD) system. There is an oval equal density asymmetry with an indistinct margin in the right breast middle depth medial region seen on the craniocaudal view only. No other significant masses, calcifications, or other findings are seen in either breast. IMPRESSION: INCOMPLETE: NEEDS ADDITIONAL IMAGING EVALUATION The oval equal density asymmetry in the right breast is indeterminate. Mediolateral and spot compression views as well as additional views with possible ultrasound are recommended. This exam was interpreted at Station ID: [id number]. NOTE: For mammograms, a report in lay terms will be sent to the patient. Approximately 15% of breast malignancies will not be visualized mammographically. In the management of a palpable breast mass, a negative mammogram must not discourage biopsy of a clinically suspicious lesion. Electronically Signed By: Anoop tran/gretchen:05/07/2021 13:47:53 copy to: Anand Feldman letter sent: Additional Imaging Needed ACR BI-RADS Category 0: Incomplete [id number]
== END ==
PROVIDERS: PCP Student in an Organized Health Care Education/Training Program; Referring Provider Specialist; Visit Provider Specialist
DX: Z12.31 Encounter for screening mammogram for malignant neoplasm of breast (principal); Z80.3 Family history of malignant neoplasm of breast; N64.89 Other specified disorders of breast
CPT/HCPCS: 77063; 77067

== ENCOUNTER → 2021-06-03 14:13 | Outpatient (CLI) | payer MEDICARE, OTHER, SELFPAY ==
--- NOTE | 2021-06-03 14:17 | DI.MG.S_ITS ---
UNILATERAL RIGHT DIGITAL DIAGNOSTIC MAMMOGRAM 3D/2D WITH ADDITIONAL VIEWS: 06/03/2021 CLINICAL: Additional evaluation requested from prior study. Comparison is made to exams dated: 05/07/2021 mammogram, 03/04/2020 mammogram, 02/28/2018 mammogram, and 03/02/2019 mammogram - [facility]. The tissue of right breast is heterogeneously dense. This may lower the sensitivity of mammography. The previously seen asymmetry in the right breast is no longer visualized, presumably secondary to superimposed fibroglandular breast tissue on the prior exam. No significant masses, calcifications, or other findings are seen in the breast. IMPRESSION: NEGATIVE There is no mammographic evidence of malignancy. A 1 year screening mammogram is recommended. This exam was interpreted at Station ID: [id number]. NOTE: For mammograms, a report in lay terms will be sent to the patient. Approximately 15% of breast malignancies will not be visualized mammographically. In the management of a palpable breast mass, a negative mammogram must not discourage biopsy of a clinically suspicious lesion. Electronically Signed By: Tani wood/gretchen:06/03/2021 14:43:27 copy to: Anand Feldman letter sent: Normal Exam ACR BI-RADS Category 1: Negative [id number]
== END ==
PROVIDERS: PCP Student in an Organized Health Care Education/Training Program; Referring Provider Specialist; Visit Provider Specialist
DX: R92.8 Other abnormal and inconclusive findings on diagnostic imaging of breast (principal); N64.89 Other specified disorders of breast
CPT/HCPCS: 77065; G0279

== ENCOUNTER 2021-06-22 17:33 | Emergency (ER) | payer MEDICARE, OTHER, SELFPAY ==
[2021-06-22 17:49] VITALS: BP 131/74; PULSE 75; RESP 19; TEMP 36.9; O2SAT 98; BMI 24.3
--- NOTE | 2021-06-22 17:54 | DI.RAD.S_ITS ---
PROCEDURE: XR HIP W PEL IF DONE RT 2V INDICATIONS: right hip pain after injury TECHNIQUE: Two views of the hip were acquired. COMPARISON: [facility], [place], XR HIP W PEL IF DONE LT 2V, 04/23/2020, 14:46. FINDINGS: Bones: No fractures or dislocations. No suspicious bony lesions. The visualized pelvic ring appears intact. Soft tissues: No suspicious soft tissue calcifications or masses. IMPRESSION: Intact right hip. Visible pelvic fractures. Dictated by: Jaclyn العلي M.D. on 06/22/2021 at 18:21 Approved by: Jaclyn العلي M.D. on 06/22/2021 at 18:21
[2021-06-22 18:28] LABS: Add Manual Diff / Slide Review NO; Basophils Absolute Auto 100 /uL (0-100); Basophils Percent Auto 0.8 % (0-2); Eosinophils Absolute Auto 300 /uL (0-450); Eosinophils Percent Auto 3.8 % (2-4); Hematocrit 37.4 % (36-46); Hemoglobin 12.6 g/dL (12.0-16.0); Lymphocytes Absolute Auto 1900 /uL (1100-4500); Lymphocytes Percent Auto 25.3 % (25-40); Mean Corpuscular HGB Conc 33.7 % (30-36); Mean Corpuscular Hemoglobin 29.7 PG (26-34); Monocytes Absolute Auto 600 /uL (0-900); Monocytes Percent Auto 7.6 % (3-14); Neutrophils Absolute Auto 4600 /uL (1500-7000); Neutrophils Percent Auto 62.5 % (50-75); Platelet Count 238 X10^3/uL (150-400); Red Blood Cell Count 4.25 X10^6/uL (4.0-5.2); Red Cell Distribution Width 13.5 % (11.6-14.8); White Blood Cell Count 7.4 X10^3/uL (4.5-11.0)
[2021-06-22 18:39] LABS: Alanine Aminotransferase 20 IU/L (<35); Albumin 4.1 g/dL (3.5-5.0); Albumin Globulin Ratio 1.6 (1.0-2.8); Alkaline Phosphatase 48 U/L (38-126); Aspartate Aminotransferase 31 IU/L (14-36); BUN Creatinine Ratio 19.5 (6-22); Bilirubin Total 0.8 mg/dL (0.2-1.3); Blood Urea Nitrogen 15 mg/dL (7-17); Calcium 9.3 mg/dL (8.4-10.2); Carbon Dioxide 31 mmol/L (22-32); Chloride 100 mmol/L (98-107); Estimated Glomerular Filt Rate > 60.0 mL/min (>60); Globulin 2.5 g/dL (1.7-4.1); Glucose 84 mg/dL (80-110); HEMOLYSIS 22 (0-50); Lipase 21 U/L (23-300); Potassium 4.1 mmol/L (3.4-5.1); Sodium 136 mmol/L (137-145); Total Protein 6.6 g/dL (6.3-8.2)
--- NOTE | 2021-06-22 20:08 | ED.EXTPRO ---
HPI - Extremity Problem General Chief complaint: Extremity Problem,Nontraumatic Stated complaint: ABDOMINAL/HIP PAIN Time Seen by Provider: 06/22/21 17:54 Source: patient Mode of arrival: Ambulatory History of Present Illness HPI Narrative: 71-year-old woman with a history of hypertension and occasional low back pain presents with complaints of right-sided low back pain. She was doing some house cleaning bending forward leaning over felt some discomfort in the right lower back that has progressively gotten worse. She was noting right lower quadrant tenderness which concerns her more in comes in for further evaluation. At home she was using a single left over Dilaudid, Vistaril and Aleve and found the pain was increasing. She denies any fevers, cough, chills, vomiting, nausea, diarrhea. She notes that she had a normal bowel movement yesterday that did not influence her pain in any way. She is not having any palpitations or headaches. She did notice today that she is having some mild paresthesia down the anterior portion of her right thigh. No specific weakness in her leg beyond that related directly to pain. Related Data Home Medications Medication Instructions Recorded Confirmed CHOLECALCIFEROL (VITAMIN D) 3,000 iu PO QDAY #0 07/24/11 06/04/21 Metoprolol Tartrate (LOPRESSOR) 12.5 mg PO QDAY #0 07/24/11 06/04/21 CALCIUM/PHYTONADIONE/SODIUM/ 1 ctb PO QDAY #0 12/31/11 06/04/21 (#VIACTIV CALCIUM) aspirin 81 mg tablet,delayed 81 mg PO QDAY #0 12/31/11 06/04/21 release VITAMIN B COMPLEX (Vitamin B 1 tab PO QDAY #0 11/14/12 06/04/21 Complex) ascorbic acid (vitamin C) 500 mg 500 mg PO QDAY #0 11/14/12 06/04/21 tablet vitamins A,C,F-tezg-mhlonv 14,320 1 cap PO BID 01/04/19 06/04/21 unit-226 mg-200 unit capsule (PreserVision AREDS) Chondroitin Sulfate/Glucosam 1,500 cap PO QDAY #0 04/23/20 06/04/21 (GLUCOSAMINE/CHONDROITIN) OMEGA-3 FATTY ACIDS/STEVIA E 1 mg PO BID #0 04/23/20 06/04/21 (#COROMEGA OMEGA-3 12 MG-650 MG-10 MG-3 IU) PreserVision Lutein 2 cap PO DAILY 08/21/20 06/04/21 Previous Rx's Medication Instructions Recorded hydromorphone 2 mg tablet 2 mg PO Q6H PRN #14 tab 06/22/21 (Dilaudid) hydroxyzine HCl 25 mg tablet 25 mg PO QID PRN #30 tab 06/22/21 meloxicam 7.5 mg tablet 7.5 mg PO DAILY #30 tab 06/22/21 ondansetron HCl 4 mg tablet 4 mg PO Q8H PRN #30 tab 06/22/21 (Zofran) Allergies Allergy/AdvReac Type Severity Reaction Status Date / Time avocado Allergy Severe Anaphylaxis Verified 06/22/21 17:49 Iodinated Contrast Media Allergy Severe ANAPHYLAXIS Verified 06/22/21 17:49 [Iodinated Contrast Media - IV Dye] monosodium glutamate Allergy Severe ANAPHYLAXIS Verified 06/22/21 17:49 shellfish derived Allergy Severe Anaphylaxis Verified 06/22/21 17:49 oxymetazoline Allergy Mild difficulty Verified 06/22/21 17:49 [From AFRIN (OXYMETAZOLINE)] breathing mannitol [From Reclast] AdvReac Severe riggers Verified 06/22/21 17:49 zoledronic acid AdvReac Severe riggers Verified 06/22/21 17:49 [From Reclast] epinephrine AdvReac Intermediate HEART GOES Verified 06/22/21 17:49 TO FAST morphine AdvReac Intermediate Anxiety Verified 06/22/21 17:49 codeine AdvReac Mild GI Verified 06/22/21 17:49 INTOLERANCE erythromycin base AdvReac Mild GI Verified 06/22/21 17:49 INTOLERANCE Penicillins AdvReac Mild GI Verified 06/22/21 17:49 INTOLERANCE hydrocodone AdvReac Unknown GI, Verified 06/22/21 17:49 DIZZINESS Review of Systems Review of Systems Narrative: Remainder of complete review of systems is otherwise unremarkable except for that included in the HPI. Patient History Medical History Abnormal Pap smear of cervix (~1999) Abnormally prolonged clotting time Arthritis Bradycardia Cardiac arrhythmia (~1971) Chicken pox Complete AV block DDD (degenerative disc disease) Endometriosis Foot pain Hemorrhoids (1988) History of heavy periods Lumbar spinal stenosis Macular degeneration (1991) Measles Metatarsal fracture (1995) Mumps Painful menstrual periods PSVT (paroxysmal supraventricular tachycardia) RLS (restless legs syndrome) Rupture of tympanic membrane SA node dysfunction Sinus bradycardia Stenosis of innominate vein (2015) Stress incontinence Tinnitus Surgical History Anesthesia Elective replacement indicated for cardiac pacemaker battery at end of lifespan (10/2015) History of total left knee replacement Status post arthroscopy Status post laparoscopic cholecystectomy (1997) Status post placement of cardiac pacemaker (06/2010) Status post placement of implantable loop recorder (11/2009) Status post removal of cervix Family History Father Recurrent incisional hernia with complication Grandfather Brain aneurysm Grandmother Diabetes mellitus Mother Fractured hip Sepsis Diabetes mellitus Grandfather CVA (cerebral vascular accident) Grandmother Stomach cancer Social History household members: spouse Smoking Status: Never smoker alcohol intake: current Smoking Status: Never smoker alcohol intake frequency: holidays/special occasions only Substance Use Type: does not use Exam Narrative Exam Narrative: General: Healthy appearing, in no acute distress. Able to give a complete and coherent history. Well-nourished well-developed HEENT: Moist mucous membranes, normal sclera with reactive pupils, Neck: No JVD, supple Respiratory: Lungs are clear to auscultation, no wheezing no rales no rhonchi. Full and symmetrical air movement Cardiac: Regular rate and rhythm no murmurs no bruits Abdomen: Soft, nontender. Deep palpation in the right lower quadrant does not elicit any pain, she has no rebound or guarding, good bowel tones, no flank pain Skin: Warm and dry, no rashes or suggestion of zoster outbreak over the right flank Neurologic: Grossly neurologically intact with no obvious asymmetries or abnormalities Extremities: No trauma, well perfused Psych: Cooperative, appropriate insight and affect Initial Vital Signs Initial Vital Signs: Vital Signs Temperature 98.4 F 06/22/21 17:49 Pulse Rate 75 06/22/21 17:49 Respiratory Rate 19 06/22/21 17:49 Blood Pressure 131/74 06/22/21 17:49 Pulse Oximetry 98 06/22/21 17:49 Course Orders Ordered: ED Orders 06/22/21 17:54 XR hip w pel if done RT 2V Stat 06/22/21 18:13 Complete Blood Count AUTO DIFF Stat Comprehensive Metabolic Panel Stat Lipase Stat Discontinued Medications Dexamethasone (Dexamethasone 10 Mg/Ml Vial) 10 mg IV NOW ONE Stop: 06/22/21 20:01 Last Admin: 06/22/21 20:18 Dose: 10 mg Documented by: ZEESHAN Hydromorphone HCl (Hydromorphone 0.5 Mg Inj) 0.5 mg IV NOW ONE Stop: 06/22/21 20:01 Last Admin: 06/22/21 20:18 Dose: 0.5 mg Documented by: ZEESHAN Hydroxyzine Pamoate (Hydroxyzine Pamoate 25 Mg Capsule) 25 mg PO NOW ONE Stop: 06/22/21 20:01 Last Admin: 06/22/21 20:18 Dose: 25 mg Documented by: ZEESHAN Vital Signs Vital signs: Vital Signs - 8 hr 06/22/21 17:49 06/22/21 20:28 Temperature 98.4 F Pulse Rate 75 62 Respiratory Rate 19 18 Blood Pressure 131/74 137/67 Pulse Oximetry 98 100 MDM - Extremity (Nontraumatic) Lab Data Result diagrams: 06/22/21 18:13 06/22/21 18:13 Labs: Lab Results 06/22/21 06/22/21 Range/Units 18:13 18:13 WBC 7.4 (4.5-11.0) X10^3/uL RBC 4.25 (4.0-5.2) X10^6/uL Hgb 12.6 (12.0-16.0) g/dL Hct 37.4 (36-46) % MCV 88.0 (80-100) fL MCH 29.7 (26-34) PG MCHC 33.7 (30-36) % RDW 13.5 (11.6-14.8) % Plt Count 238 (150-400) X10^3/uL Neut % (Auto) 62.5 (50-75) % Lymph % (Auto) 25.3 (25-40) % [place] % (Auto) 7.6 (3-14) % Eos % (Auto) 3.8 (2-4) % Baso % (Auto) 0.8 (0-2) % Neut # (Auto) 4600 (8955-1327) /uL Lymph # (Auto) 1900 (2107-2861) /uL [place] # (Auto) 600 (0-900) /uL Eos # (Auto) 300 (0-450) /uL Baso # (Auto) 100 (0-100) /uL Sodium 136 L (137-145) mmol/L Potassium 4.1 (3.4-5.1) mmol/L Chloride 100 (98-107) mmol/L Carbon Dioxide 31 (22-32) mmol/L BUN 15 (7-17) mg/dL Creatinine 0.77 (0.52-1.04) mg/dL Estimated GFR > 60.0 (>60) mL/min BUN/Creatinine Ratio 19.5 (6-22) Glucose 84 (80-110) mg/dL Calcium 9.3 (8.4-10.2) mg/dL Total Bilirubin 0.8 (0.2-1.3) mg/dL AST 31 (14-36) IU/L ALT 20 (<35) IU/L Alkaline Phosphatase 48 (38-126) U/L Total Protein 6.6 (6.3-8.2) g/dL Albumin 4.1 (3.5-5.0) g/dL Globulin 2.5 (1.7-4.1) g/dL Albumin/Globulin Ratio 1.6 (1.0-2.8) Lipase 21 L (23-300) U/L Urine Dip Bedside Urine Glucose Negative Bedside Urine Bilirubin - Negative Bedside Urine Ketone - Negative Urine Specific [place] 1.010 Bedside Urine Occult Blood - Negative Bedside Urine pH 7.5 Bedside Urine Protein - Negative Bedside Urine Urobilinogen - Negative Bedside Urine Nitrite - Negative Bedside Urine Leukocytes - Negative Esterase MDM Narrative Medical decision making narrative: 71-year-old woman with 3 days of increasing right lower quadrant/back pain. No evidence of infection, pyelonephritis, nephrolithiasis or pelvic abnormalities. Pain was significantly better with Toradol, Dilaudid and this ruled in the emergency department. At this point I think this is musculoskeletal as result of recent bending twisting turning motion cleaning her house the other day. No suggestion of an epidural abscess or cauda equina syndrome. Will discharge her home with a prescription for meloxicam a brief course of additional p.o. Dilaudid and refills of both hydroxyzine and Zofran. She is safe for home discharge Discharge Plan Departure Patient Disposition: Home Clinical Impression: Acute low back pain with sciatica, Spinal stenosis of lumbar region Instructions: DI for Back Pain With Sciatica Activity Restrictions/Additional Instructions: Thank you for coming in today Fortunately, I do not think that this is anything more than muscle spasm with some radicular pain. Your blood work is reassuring. There is no evidence of infection, UTI, kidney stone pyelonephritis and on your review exam you do not have any tenderness with deep palpation in the right lower quadrant to suggest either appendicitis or any type of uterine or ovarian pathology. So some suggestions for helping deal with your pain that is going to go away no matter what we do. 1 -continue the Pepcid and can be once or twice a day to avoid any stomach upset from the nonsteroidals 2 -going to give you a 3 day course of Decadron, a powerful steroid anti inflammatory medicine. The 1st dose was in the ER. You need 8 mg on Wednesday and 8 mg on Wednesday. 3 -I will refill your Vistaril to help with pain and muscle spasm 4 -I will refill Zofran for nausea 5 -I am going to suggest that you try meloxicam 7.5 mg daily to help with inflammation and pain rather than the aleve or ibuprofen. They are all very similar. In the end, use whichever seems to be most effective for you but do not mix them at the same time 6 -I will also refill small prescription of oral Dilaudid to help for severe pain. I hope you feel better. It was wonderful to see you again! Prescriptions: New meloxicam 7.5 mg tablet 7.5 mg PO DAILY Qty: 30 0RF hydroxyzine HCl 25 mg tablet 25 mg PO QID PRN (Reason: muscle spasm, nausea) Qty: 30 0RF ondansetron HCl [Zofran] 4 mg tablet 4 mg PO Q8H PRN (Reason: nausea and vomiting) Qty: 30 0RF hydromorphone [Dilaudid] 2 mg tablet 2 mg PO Q6H PRN (Reason: pain) Qty: 14 0RF No Action Metoprolol Tartrate (LOPRESSOR) 12.5 mg tablet 12.5 mg PO QDAY Qty: 0 0RF CHOLECALCIFEROL (VITAMIN D) 3,000 iu PO QDAY Qty: 0 0RF aspirin 81 MG tablet,delayed release (DR/EC) 81 mg PO QDAY Qty: 0 0RF CALCIUM/PHYTONADIONE/SODIUM/ (#VIACTIV CALCIUM) 1 ctb PO QDAY Qty: 0 0RF ascorbic acid (vitamin C) 500 MG tablet 500 mg PO QDAY Qty: 0 0RF VITAMIN B COMPLEX (Vitamin B Complex) 1 tab PO QDAY Qty: 0 0RF Chondroitin Sulfate/Glucosam (GLUCOSAMINE/CHONDROITIN) 1,500 cap PO QDAY Qty: 0 0RF Rx Instructions: pt takes two tablets bid OMEGA-3 FATTY ACIDS/STEVIA E (#COROMEGA OMEGA-3 12 MG-650 MG-10 MG-3 IU) 1 mg PO BID Qty: 0 0RF Rx Instructions: takes one capsule bid PreserVision AREDS [id number]-tb-verd capsule 1 cap PO BID 0RF PreserVision Lutein 2 cap PO DAILY 0RF Referrals: Anand Collier MD [Primary Care Provider] -
[2021-06-22] MEDS: DEXAMETHASONE 10 MG/ML VIAL IV (20:18)
[2021-06-22] MEDS: HYDROMORPHONE 0.5 MG INJ IV (20:18)
[2021-06-22] MEDS: hydrOXYzine pamoate 25 MG CAPSULE PO (20:18)
[2021-06-22 20:28] VITALS: BP 137/67; PULSE 62; RESP 18; O2SAT 100
--- NOTE | 2021-06-23 12:22 | PC.NURSE ---
PT called stating prescription for decadron was not sent to pharmacy as was other prescriptions. Dr. Collins reviewed and sent script to pharmacy of choice. Pt called back and updated. Encouraged to f/u as needed and indicated and return for any needs, concerns, worsening of symptoms.
== END 2021-06-22 20:32 | disposition home or self-care (01) ==
PROVIDERS: Emergency Medicine; Emergency Provider Emergency Medicine; PCP Student in an Organized Health Care Education/Training Program
DX: M54.41 Lumbago with sciatica, right side (principal); M48.061 Spinal stenosis, lumbar region without neurogenic claudication
CPT/HCPCS: 36415; 73502; 80053; 81003; 83690; 85025; 96374; 96375; 99284; J1100; J1170

== ENCOUNTER 2021-06-28 11:31 | Emergency (ER) | payer MEDICARE, OTHER, SELFPAY ==
[2021-06-28] VITALS (13 sets, daily range): BP systolic 138–154; BP diastolic 62–77; PULSE 50–85; RESP 20; TEMP 36.9; O2SAT 98–100; BMI 24.0
--- NOTE | 2021-06-28 12:56 | ED.ABDPAIN ---
HPI - Abdominal Pain <Abdiel Styles PA-C - Last Filed: 06/28/21 17:25> General Chief Complaint: Abdominal Pain Stated Complaint: ABDOMINAL PAIN Time Seen by Provider: 06/28/21 12:10 History of Present Illness HPI narrative: Patient is a 71 year female presenting to the emergency department today for evaluation right lower quadrant abdominal pain. Patient states that her pain began back 06/19/2021 and she was seen in the emergency department 06/22/2021 was diagnosed with a pulled muscle. Patient states that her pain is now worse and she notes that it has began to radiate into her right flank and right hip. Additionally, patient states that she has experienced nausea since her pain began. Denies fever, chills, chest pain, shortness of breath, vomiting, diarrhea, dysuria, hematuria. No other concerns voiced this time. Related Data Home Medications Medication Instructions Recorded Confirmed CHOLECALCIFEROL (VITAMIN D) 3,000 iu PO QDAY #0 07/24/11 06/04/21 Metoprolol Tartrate (LOPRESSOR) 12.5 mg PO QDAY #0 07/24/11 06/04/21 CALCIUM/PHYTONADIONE/SODIUM/ 1 ctb PO QDAY #0 12/31/11 06/04/21 (#VIACTIV CALCIUM) aspirin 81 mg tablet,delayed 81 mg PO QDAY #0 12/31/11 06/04/21 release VITAMIN B COMPLEX (Vitamin B 1 tab PO QDAY #0 11/14/12 06/04/21 Complex) ascorbic acid (vitamin C) 500 mg 500 mg PO QDAY #0 11/14/12 06/04/21 tablet vitamins A,C,Y-oqbx-nnmoia 14,320 1 cap PO BID 01/04/19 06/04/21 unit-226 mg-200 unit capsule (PreserVision AREDS) Chondroitin Sulfate/Glucosam 1,500 cap PO QDAY #0 04/23/20 06/04/21 (GLUCOSAMINE/CHONDROITIN) OMEGA-3 FATTY ACIDS/STEVIA E 1 mg PO BID #0 04/23/20 06/04/21 (#COROMEGA OMEGA-3 12 MG-650 MG-10 MG-3 IU) PreserVision Lutein 2 cap PO DAILY 08/21/20 06/04/21 Previous Rx's Medication Instructions Recorded hydromorphone 2 mg tablet 2 mg PO Q6H PRN #14 tab 06/22/21 (Dilaudid) hydroxyzine HCl 25 mg tablet 25 mg PO QID PRN #30 tab 06/22/21 ondansetron HCl 4 mg tablet 4 mg PO Q8H PRN #30 tab 06/22/21 (Zofran) dexamethasone 4 mg tablet 8 mg PO DAILY #4 tab 06/23/21 (Decadron) meloxicam 15 mg tablet 15 mg PO DAILY #30 tab 06/23/21 methocarbamol 500 mg tablet 500 mg PO TID PRN #20 tab 06/23/21 dexamethasone 6 mg tablet 6 mg PO BID #6 tab 06/28/21 Allergies Allergy/AdvReac Type Severity Reaction Status Date / Time avocado Allergy Severe Anaphylaxis Verified 06/22/21 17:49 Iodinated Contrast Media Allergy Severe ANAPHYLAXIS Verified 06/22/21 17:49 [Iodinated Contrast Media - IV Dye] monosodium glutamate Allergy Severe ANAPHYLAXIS Verified 06/22/21 17:49 shellfish derived Allergy Severe Anaphylaxis Verified 06/22/21 17:49 oxymetazoline Allergy Mild difficulty Verified 06/22/21 17:49 [From AFRIN (OXYMETAZOLINE)] breathing mannitol [From Reclast] AdvReac Severe riggers Verified 06/22/21 17:49 zoledronic acid AdvReac Severe riggers Verified 06/22/21 17:49 [From Reclast] epinephrine AdvReac Intermediate HEART GOES Verified 06/22/21 17:49 TO FAST morphine AdvReac Intermediate Anxiety Verified 06/22/21 17:49 codeine AdvReac Mild GI Verified 06/22/21 17:49 INTOLERANCE erythromycin base AdvReac Mild GI Verified 06/22/21 17:49 INTOLERANCE Penicillins AdvReac Mild GI Verified 06/22/21 17:49 INTOLERANCE hydrocodone AdvReac Unknown GI, Verified 06/22/21 17:49 DIZZINESS Review of Systems <Abdiel Styles PA-C - Last Filed: 06/28/21 17:25> Constitutional Constitutional: Denies chills, Denies fatigue, Denies fever(s), Denies frequent falls, Denies lethargy and Denies weakness Eyes Eyes: Denies loss of vision ENT Ears, Nose, Mouth, and Throat: Denies change in voice, Denies dizziness, Denies neck pain, Denies sore throat and Denies throat swelling Cardiovascular Cardiovascular: Denies chest pain, Denies irregular heart rhythm, Denies lightheadedness, Denies palpitations, Denies dyspnea, Denies dyspnea on exertion and Denies orthopnea Respiratory Respiratory: Denies cough, Denies dyspnea, Denies dyspnea on exertion and Denies wheezing Gastrointestinal Gastrointestinal: Reports abdominal pain (Right lower quadrant), Denies melena, Denies change in bowel habits, Denies change in stool character, Denies diarrhea, Reports nausea, Denies vomiting and Denies hematemesis Genitourinary Genitourinary: Denies hematuria, Reports flank pain (Right flank), Denies urinary incontinence and Denies urinary urgency Musculoskeletal Musculoskeletal: Denies back pain, Reports arthralgias (Right hip pain), Denies muscle weakness, Denies neck pain, Reports numbness (Mild numbness over the anterior lateral aspect of the hip) and Denies tingling Neurologic Neurologic: Denies behavioral changes, Denies confusion, Denies dizziness, Denies frequent falls, Denies loss of vision, Reports numbness (Mild numbness over the anterior lateral aspect of the hip), Denies tingling and Denies weakness Psychiatric Psychiatric: Denies behavioral changes and Denies confusion Endocrine Endocrine: Denies fatigue and Denies palpitations Allergic/Immunologic Allergic/Immunologic: Denies throat swelling and Denies wheezing Patient History <Abdiel Styles PA-C - Last Filed: 06/28/21 17:25> Medical History Abnormal Pap smear of cervix (~1999) Abnormally prolonged clotting time Arthritis Bradycardia Cardiac arrhythmia (~1971) Chicken pox Complete AV block DDD (degenerative disc disease) Endometriosis Foot pain Hemorrhoids (1988) History of heavy periods Lumbar spinal stenosis Macular degeneration (1991) Measles Metatarsal fracture (1995) Mumps Painful menstrual periods PSVT (paroxysmal supraventricular tachycardia) RLS (restless legs syndrome) Rupture of tympanic membrane SA node dysfunction Sinus bradycardia Stenosis of innominate vein (2015) Stress incontinence Tinnitus Surgical History Anesthesia Elective replacement indicated for cardiac pacemaker battery at end of lifespan (10/2015) History of total left knee replacement Status post arthroscopy Status post laparoscopic cholecystectomy (1997) Status post placement of cardiac pacemaker (06/2010) Status post placement of implantable loop recorder (11/2009) Status post removal of cervix Family History Father Recurrent incisional hernia with complication Grandfather Brain aneurysm Grandmother Diabetes mellitus Mother Fractured hip Sepsis Diabetes mellitus Grandfather CVA (cerebral vascular accident) Grandmother Stomach cancer Social History household members: spouse Smoking Status: Never smoker alcohol intake: current Smoking Status: Never smoker alcohol intake frequency: holidays/special occasions only Substance Use Type: does not use Exam <Abdiel Styles PA-C - Last Filed: 06/28/21 17:25> Narrative Exam Narrative: GENERAL: 71 year old patient appears stated age. Well-developed patient, in mild distress. HEAD: Atraumatic. Normocephalic. EYES: Pupils equal round and reactive. Extraocular motions intact. No scleral icterus. No injection or drainage. ENT: Nose without bleeding, purulent drainage. Throat without erythema, tonsillar hypertrophy or exudate. Airway patent. NECK: Trachea midline. Non tender CARDIOVASCULAR: Regular rate and rhythm without murmurs, gallops, or rubs. RESPIRATORY: Clear to auscultation. Breath sounds equal bilaterally. No wheezes, rales, or rhonchi. GASTROINTESTINAL: Abdomen soft, nondistended. Mild tenderness to palpation appreciated over the right lower quadrant. No masses appreciated. EXTREMITIES: No edema or joint tenderness. Tenderness to palpation appreciated over the anterolateral aspect the proximal right thigh without overlying erythema or ecchymosis. BACK: Nontender without deformity or crepitance. Right flank tenderness to palpation NEURO: AOx3. SKIN: No rash or erythema of visible areas Initial Vital Signs Initial Vital Signs: Vital Signs Temperature 98.5 F 06/28/21 11:44 Pulse Rate 64 06/28/21 11:44 Respiratory Rate 20 06/28/21 11:44 Blood Pressure 154/77 H 06/28/21 11:44 Pulse Oximetry 100 06/28/21 11:44 <Wilian Collins DO - Last Filed: 06/28/21 17:26> Initial Vital Signs Initial Vital Signs: Vital Signs Temperature 98.5 F 06/28/21 11:44 Pulse Rate 64 06/28/21 11:44 Respiratory Rate 20 06/28/21 11:44 Blood Pressure 154/77 H 06/28/21 11:44 Pulse Oximetry 100 06/28/21 11:44 Course <Abdiel Styles PA-C - Last Filed: 06/28/21 17:25> Course Course Narrative: Lipase, PTT, PT/INR, CBC, CMP, CT of the abdomen pelvis, an EKG obtained. Orders Ordered: ED Orders 06/28/21 12:17 EKG-12 Lead Stat 06/28/21 12:55 Complete Blood Count AUTO DIFF Stat Comprehensive Metabolic Panel Stat Lipase Stat Partial Thromboplastin Time Stat Prothrombin Time INR Stat 06/28/21 13:32 CT abdomen pelvis wo con Stat Vital Signs Vital signs: Vital Signs - 8 hr 06/28/21 11:44 06/28/21 12:40 06/28/21 13:00 Temperature 98.5 F Pulse Rate 64 59 L 55 L Respiratory Rate 20 Blood Pressure 154/77 H 154/70 H Pulse Oximetry 100 100 100 06/28/21 13:01 06/28/21 13:32 06/28/21 13:45 Temperature Pulse Rate 53 L 50 L Respiratory Rate Blood Pressure 140/63 152/66 H Pulse Oximetry 100 99 100 06/28/21 13:54 06/28/21 14:05 06/28/21 14:20 Temperature Pulse Rate 58 L 52 L 51 L Respiratory Rate Blood Pressure 138/65 139/62 Pulse Oximetry 100 99 100 06/28/21 14:30 06/28/21 15:00 06/28/21 15:21 Temperature Pulse Rate 51 L 56 L 85 Respiratory Rate Blood Pressure Pulse Oximetry 98 100 98 06/28/21 15:22 Temperature Pulse Rate Respiratory Rate Blood Pressure 150/69 H Pulse Oximetry <Wilian Collins DO - Last Filed: 06/28/21 17:26> Orders Ordered: ED Orders 06/28/21 12:17 EKG-12 Lead Stat 06/28/21 12:55 Complete Blood Count AUTO DIFF Stat Comprehensive Metabolic Panel Stat Lipase Stat Partial Thromboplastin Time Stat Prothrombin Time INR Stat 06/28/21 13:32 CT abdomen pelvis wo con Stat Vital Signs Vital signs: Vital Signs - 8 hr 06/28/21 11:44 06/28/21 12:40 06/28/21 13:00 Temperature 98.5 F Pulse Rate 64 59 L 55 L Respiratory Rate 20 Blood Pressure 154/77 H 154/70 H Pulse Oximetry 100 100 100 06/28/21 13:01 06/28/21 13:32 06/28/21 13:45 Temperature Pulse Rate 53 L 50 L Respiratory Rate Blood Pressure 140/63 152/66 H Pulse Oximetry 100 99 100 06/28/21 13:54 06/28/21 14:05 06/28/21 14:20 Temperature Pulse Rate 58 L 52 L 51 L Respiratory Rate Blood Pressure 138/65 139/62 Pulse Oximetry 100 99 100 06/28/21 14:30 06/28/21 15:00 06/28/21 15:21 Temperature Pulse Rate 51 L 56 L 85 Respiratory Rate Blood Pressure Pulse Oximetry 98 100 98 06/28/21 15:22 Temperature Pulse Rate Respiratory Rate Blood Pressure 150/69 H Pulse Oximetry MDM - Abdominal Pain <Abdiel Styles PA-C - Last Filed: 06/28/21 17:25> Lab Data Result diagrams: 06/28/21 12:55 06/28/21 12:55 Labs: Lab Results 06/28/21 06/28/21 06/28/21 Range/Units 12:55 12:55 12:55 WBC 7.4 (4.5-11.0) X10^3/uL RBC 4.40 (4.0-5.2) X10^6/uL Hgb 13.0 (12.0-16.0) g/dL Hct 38.7 (36-46) % MCV 88.0 (80-100) fL MCH 29.5 (26-34) PG MCHC 33.5 (30-36) % RDW 13.3 (11.6-14.8) % Plt Count 252 (150-400) X10^3/uL Neut % (Auto) 67.2 (50-75) % Lymph % (Auto) 22.2 L (25-40) % Bertie % (Auto) 6.8 (3-14) % Eos % (Auto) 2.9 (2-4) % Baso % (Auto) 0.9 (0-2) % Neut # (Auto) 5000 (3207-5820) /uL Lymph # (Auto) 1600 (7324-1515) /uL Bertie # (Auto) 500 (0-900) /uL Eos # (Auto) 200 (0-450) /uL Baso # (Auto) 100 (0-100) /uL PT 12.2 (10.1-12.7) SECONDS INR 1.1 (0.9-1.3) APTT 28 (26.4-36.2) SECONDS Sodium 135 L (137-145) mmol/L Potassium 3.5 (3.4-5.1) mmol/L Chloride 100 (98-107) mmol/L Carbon Dioxide 27 (22-32) mmol/L BUN 10 (7-17) mg/dL Creatinine 0.76 (0.52-1.04) mg/dL Estimated GFR > 60.0 (>60) mL/min BUN/Creatinine Ratio 13.2 (6-22) Glucose 92 (80-110) mg/dL Calcium 9.2 (8.4-10.2) mg/dL Total Bilirubin 1.4 H (0.2-1.3) mg/dL AST 26 (14-36) IU/L ALT 24 (<35) IU/L Alkaline Phosphatase 55 (38-126) U/L Total Protein 6.7 (6.3-8.2) g/dL Albumin 4.1 (3.5-5.0) g/dL Globulin 2.6 (1.7-4.1) g/dL Albumin/Globulin Ratio 1.6 (1.0-2.8) Lipase 28 (23-300) U/L Point of care testing: Urine Dip Bedside Urine Glucose Negative Bedside Urine Bilirubin - Negative Bedside Urine Ketone - Negative Urine Specific [place] 1.015 Bedside Urine Occult Blood - Negative Bedside Urine pH 6.0 Bedside Urine Protein - Negative Bedside Urine Urobilinogen - Negative Bedside Urine Nitrite - Negative Bedside Urine Leukocytes - Negative Esterase Imaging Data CT scan - abdomen/pelvis: Radiologist's Impression: PROCEDURE:? CT ABDOMEN PELVIS WO CON ? INDICATIONS:? RLQ abdominal pain ? TECHNIQUE:? Noncontrast 5 mm thick sections acquired from the diaphragms to the symphysis.? 5 mm coronal and sagittal reformats were then performed.? For radiation dose reduction, the following was used:? automated exposure control, adjustment of mA and/or kV according to patient size.? ? COMPARISON:? None. ? FINDINGS:? Image quality:? Excellent.? ? ABDOMEN:? Lung bases:? Lung bases are clear.? Heart size is normal.? ? Solid organs:? Liver is normal in size.? Gallbladder is status post cholecystectomy.? Pancreas is normal in contours.? Spleen is normal in size.? No adrenal nodules.? Kidneys are normal in size, without hydronephrosis or nephrolithiasis.? ? Peritoneum and bowel:? Unenhanced bowel loops demonstrate normal wall thickness and caliber.? No free fluid or air.? The appendix is normal. ? Nodes and vessels:? No retroperitoneal or mesenteric adenopathy by size criteria.? Aorta and inferior vena cava are normal in caliber.? ? Miscellaneous:? No ventral hernias.? ? ? PELVIS:? Genitourinary:? Bladder wall thickness is normal.? ? Miscellaneous:? No inguinal hernias or adenopathy.? ? Bones:? No suspicious bony lesions.? No vertebral body compression fractures.? ? IMPRESSION:? No acute abdominal or pelvic abnormality. ? ? Dictated by: Jalil Pham M.D. on 06/28/2021 at 14:31 ? ? Approved by: Jalil Pham M.D. on 06/28/2021 at 14:36 ? MDM Narrative Medical decision making narrative: Patient is a 71 year female presenting to the emergency department today for evaluation right lower quadrant abdominal pain. To consider nephrolithiasis versus appendicitis versus right hip fracture versus right hip dislocation versus sprain versus strain versus pyelonephritis. Overall physical examination and history are reassuring. Areas of tenderness are reproducible with palpation, and no focal neurological deficits appreciated. Additionally, lab work and imaging studies performed in the emergency department today are reassuring. Discussed results of lab work and imaging with patient. At this time patient feels comfortable being discharged home. Strict return precautions discussed with patient prior to discharge. <Wilian Collins, DO - Last Filed: 06/28/21 17:26> Lab Data Labs: Lab Results 06/28/21 06/28/21 06/28/21 Range/Units 12:55 12:55 12:55 WBC 7.4 (4.5-11.0) X10^3/uL RBC 4.40 (4.0-5.2) X10^6/uL Hgb 13.0 (12.0-16.0) g/dL Hct 38.7 (36-46) % MCV 88.0 (80-100) fL MCH 29.5 (26-34) PG MCHC 33.5 (30-36) % RDW 13.3 (11.6-14.8) % Plt Count 252 (150-400) X10^3/uL Neut % (Auto) 67.2 (50-75) % Lymph % (Auto) 22.2 L (25-40) % Bertie % (Auto) 6.8 (3-14) % Eos % (Auto) 2.9 (2-4) % Baso % (Auto) 0.9 (0-2) % Neut # (Auto) 5000 (8066-9471) /uL Lymph # (Auto) 1600 (3602-6855) /uL Bertie # (Auto) 500 (0-900) /uL Eos # (Auto) 200 (0-450) /uL Baso # (Auto) 100 (0-100) /uL PT 12.2 (10.1-12.7) SECONDS INR 1.1 (0.9-1.3) APTT 28 (26.4-36.2) SECONDS Sodium 135 L (137-145) mmol/L Potassium 3.5 (3.4-5.1) mmol/L Chloride 100 (98-107) mmol/L Carbon Dioxide 27 (22-32) mmol/L BUN 10 (7-17) mg/dL Creatinine 0.76 (0.52-1.04) mg/dL Estimated GFR > 60.0 (>60) mL/min BUN/Creatinine Ratio 13.2 (6-22) Glucose 92 (80-110) mg/dL Calcium 9.2 (8.4-10.2) mg/dL Total Bilirubin 1.4 H (0.2-1.3) mg/dL AST 26 (14-36) IU/L ALT 24 (<35) IU/L Alkaline Phosphatase 55 (38-126) U/L Total Protein 6.7 (6.3-8.2) g/dL Albumin 4.1 (3.5-5.0) g/dL Globulin 2.6 (1.7-4.1) g/dL Albumin/Globulin Ratio 1.6 (1.0-2.8) Lipase 28 (23-300) U/L Point of care testing: Urine Dip Bedside Urine Glucose Negative Bedside Urine Bilirubin - Negative Bedside Urine Ketone - Negative Urine Specific [place] 1.015 Bedside Urine Occult Blood - Negative Bedside Urine pH 6.0 Bedside Urine Protein - Negative Bedside Urine Urobilinogen - Negative Bedside Urine Nitrite - Negative Bedside Urine Leukocytes - Negative Esterase Discharge Plan Departure Patient Disposition: Home Clinical Impression: Spinal stenosis of lumbar region, Acute low back pain with sciatica, Osteopenia after menopause Instructions: DI for Spinal Stenosis Activity Restrictions/Additional Instructions: *You have been diagnosed with spinal stenosis of lumbar region, acute low back pain with sciatica *What to do: *Please continue to take your regular medications as directed. [X] New medication prescriptions sent to your pharmacy: [facility] [place] -dexamethasone [ ] New medication written as a paper prescription [ ] No new medications given *Please follow up with your primary care provider in 2-3 days, call for an appointment. Let them know you were seen in the Emergency Department and that we ask that you be seen in follow up. We will electronically transmit a record of today's note if your PCP is in our system *If you do not have a primary care provider please contact the [facility] Resource line at [phone]. They will ask some questions about your medical history and help get you set up with a doctor in the community. *Return to Emergency Department if you should have any new, worsening or concerning symptoms, such as fever greater than 101 F, shaking chills, worsening pain, persistent vomiting or other bothersome symptoms. Prescriptions: New dexamethasone 6 mg tablet 6 mg PO BID Qty: 6 0RF No Action Metoprolol Tartrate (LOPRESSOR) 12.5 mg tablet 12.5 mg PO QDAY Qty: 0 0RF CHOLECALCIFEROL (VITAMIN D) 3,000 iu PO QDAY Qty: 0 0RF aspirin 81 MG tablet,delayed release (DR/EC) 81 mg PO QDAY Qty: 0 0RF CALCIUM/PHYTONADIONE/SODIUM/ (#VIACTIV CALCIUM) 1 ctb PO QDAY Qty: 0 0RF ascorbic acid (vitamin C) 500 MG tablet 500 mg PO QDAY Qty: 0 0RF VITAMIN B COMPLEX (Vitamin B Complex) 1 tab PO QDAY Qty: 0 0RF Chondroitin Sulfate/Glucosam (GLUCOSAMINE/CHONDROITIN) 1,500 cap PO QDAY Qty: 0 0RF Rx Instructions: pt takes two tablets bid OMEGA-3 FATTY ACIDS/STEVIA E (#COROMEGA OMEGA-3 12 MG-650 MG-10 MG-3 IU) 1 mg PO BID Qty: 0 0RF Rx Instructions: takes one capsule bid PreserVision AREDS [id number] capsule 1 cap PO BID 0RF meloxicam 15 mg tablet 15 mg PO DAILY Qty: 30 0RF methocarbamol 500 mg tablet 500 mg PO TID PRN (Reason: muscle strain) Qty: 20 0RF PreserVision Lutein 2 cap PO DAILY 0RF hydroxyzine HCl 25 mg tablet 25 mg PO QID PRN (Reason: muscle spasm, nausea) Qty: 30 0RF ondansetron HCl [Zofran] 4 mg tablet 4 mg PO Q8H PRN (Reason: nausea and vomiting) Qty: 30 0RF hydromorphone [Dilaudid] 2 mg tablet 2 mg PO Q6H PRN (Reason: pain) Qty: 14 0RF dexamethasone [Decadron] 4 mg tablet 8 mg PO DAILY Qty: 4 0RF Referrals: Anand Collier MD [Primary Care Provider] - <Wilian Collins, - Last Filed: 06/28/21 17:26> Cosign ED Attending Cosignature Attestation: Dr Collins Co-Sign Statement: I was available for consultation during this patient's emergency department visit. This chart is signed by myself for administrative purposes only. I did not have direct contact with this patient during this visit. They were seen independently by the APC.
[2021-06-28 13:03] LABS: Add Manual Diff / Slide Review NO; Basophils Absolute Auto 100 /uL (0-100); Basophils Percent Auto 0.9 % (0-2); Eosinophils Absolute Auto 200 /uL (0-450); Eosinophils Percent Auto 2.9 % (2-4); Hematocrit 38.7 % (36-46); Lymphocytes Absolute Auto 1600 /uL (1100-4500); Lymphocytes Percent Auto 22.2 % (25-40); Mean Corpuscular HGB Conc 33.5 % (30-36); Mean Corpuscular Hemoglobin 29.5 PG (26-34); Monocytes Absolute Auto 500 /uL (0-900); Monocytes Percent Auto 6.8 % (3-14); Neutrophils Absolute Auto 5000 /uL (1500-7000); Neutrophils Percent Auto 67.2 % (50-75); Platelet Count 252 X10^3/uL (150-400); Red Cell Distribution Width 13.3 % (11.6-14.8); White Blood Cell Count 7.4 X10^3/uL (4.5-11.0)
[2021-06-28 13:11] LABS: INR 1.1 (0.9-1.3); Prothrombin Time 12.2 SECONDS (10.1-12.7)
[2021-06-28 13:13] LABS: PTT Partial Thromboplastin Tim 28 SECONDS (26.4-36.2)
[2021-06-28 13:14] LABS: Alanine Aminotransferase 24 IU/L (<35); Albumin 4.1 g/dL (3.5-5.0); Albumin Globulin Ratio 1.6 (1.0-2.8); Alkaline Phosphatase 55 U/L (38-126); Aspartate Aminotransferase 26 IU/L (14-36); BUN Creatinine Ratio 13.2 (6-22); Bilirubin Total 1.4 mg/dL (0.2-1.3); Blood Urea Nitrogen 10 mg/dL (7-17); Calcium 9.2 mg/dL (8.4-10.2); Carbon Dioxide 27 mmol/L (22-32); Chloride 100 mmol/L (98-107); Estimated Glomerular Filt Rate > 60.0 mL/min (>60); Globulin 2.6 g/dL (1.7-4.1); Glucose 92 mg/dL (80-110); HEMOLYSIS < 15 (0-50); Lipase 28 U/L (23-300); Potassium 3.5 mmol/L (3.4-5.1); Sodium 135 mmol/L (137-145); Total Protein 6.7 g/dL (6.3-8.2)
--- NOTE | 2021-06-28 13:32 | DI.CT.S_ITS ---
PROCEDURE: CT ABDOMEN PELVIS WO CON INDICATIONS: RLQ abdominal pain TECHNIQUE: Noncontrast 5 mm thick sections acquired from the diaphragms to the symphysis. 5 mm coronal and sagittal reformats were then performed. For radiation dose reduction, the following was used: automated exposure control, adjustment of mA and/or kV according to patient size. COMPARISON: None. FINDINGS: Image quality: Excellent. ABDOMEN: Lung bases: Lung bases are clear. Heart size is normal. Solid organs: Liver is normal in size. Gallbladder is status post cholecystectomy. Pancreas is normal in contours. Spleen is normal in size. No adrenal nodules. Kidneys are normal in size, without hydronephrosis or nephrolithiasis. Peritoneum and bowel: Unenhanced bowel loops demonstrate normal wall thickness and caliber. No free fluid or air. The appendix is normal. Nodes and vessels: No retroperitoneal or mesenteric adenopathy by size criteria. Aorta and inferior vena cava are normal in caliber. Miscellaneous: No ventral hernias. PELVIS: Genitourinary: Bladder wall thickness is normal. Miscellaneous: No inguinal hernias or adenopathy. Bones: No suspicious bony lesions. No vertebral body compression fractures. IMPRESSION: No acute abdominal or pelvic abnormality. Dictated by: Jalil Pham M.D. on 06/28/2021 at 14:31 Approved by: Jalil Pham M.D. on 06/28/2021 at 14:36
== END 2021-06-28 15:28 | disposition home or self-care (01) ==
PROVIDERS: Emergency Medicine; Emergency Provider Physician Assistant; PCP Student in an Organized Health Care Education/Training Program
DX: R10.31 Right lower quadrant pain (principal); R03.0 Elevated blood-pressure reading, without diagnosis of hypertension; M48.061 Spinal stenosis, lumbar region without neurogenic claudication; M54.41 Lumbago with sciatica, right side
CPT/HCPCS: 36415; 74176; 80053; 81003; 83690; 85025; 85610; 85730; 93005; 99283; 99284

== ENCOUNTER → 2021-08-04 07:14 | Outpatient (CLI) | payer MEDICARE, OTHER, SELFPAY ==
--- NOTE | 2021-08-04 07:15 | DI.US.S_ITS ---
PROCEDURE: US ABDOMEN LIMITED INDICATIONS: RLQ PAIN/LUMP TECHNIQUE: Real-time scanning was performed of the abdominal and retroperitoneal organs, with image documentation. COMPARISON: [facility], , US ABDOMEN LIMITED, 05/15/2019, 12:26. FINDINGS: Limited ultrasound exam of the right lower quadrant demonstrates no focal fluid collection or mass lesion. No hernia is identified. IMPRESSION: No focal fluid collection or hernia. Dictated by: Roslyn Carty M.D. on 08/04/2021 at 8:44 Approved by: Roslyn Carty M.D. on 08/04/2021 at 8:44
== END ==
PROVIDERS: PCP Student in an Organized Health Care Education/Training Program; Referring Provider Student in an Organized Health Care Education/Training Program; Visit Provider Student in an Organized Health Care Education/Training Program
DX: R10.31 Right lower quadrant pain (principal)
CPT/HCPCS: 76705

== ENCOUNTER → 2021-10-09 11:36 | Outpatient (CLI) | payer MEDICARE, OTHER, SELFPAY ==
[2021-10-09 13:40] LABS: Add Manual Diff / Slide Review NO; Basophils Absolute Auto 100 /uL (0-100); Basophils Percent Auto 1.3 % (0-2); Eosinophils Absolute Auto 200 /uL (0-450); Eosinophils Percent Auto 3.6 % (2-4); Hematocrit 36.7 % (36-46); Hemoglobin 12.2 g/dL (12.0-16.0); Lymphocytes Absolute Auto 1600 /uL (1100-4500); Lymphocytes Percent Auto 27.7 % (25-40); Mean Corpuscular HGB Conc 33.3 % (30-36); Mean Corpuscular Hemoglobin 29.9 PG (26-34); Mean Corpuscular Volume 89.7 fL (80-100); Monocytes Absolute Auto 400 /uL (0-900); Monocytes Percent Auto 7.2 % (3-14); Neutrophils Absolute Auto 3600 /uL (1500-7000); Neutrophils Percent Auto 60.2 % (50-75); Platelet Count 249 X10^3/uL (150-400); Red Blood Cell Count 4.09 X10^6/uL (4.0-5.2); White Blood Cell Count 5.9 X10^3/uL (4.5-11.0)
[2021-10-09 14:16] LABS: Alanine Aminotransferase 32 IU/L (<35); Albumin 4.4 g/dL (3.5-5.0); Albumin Globulin Ratio 1.7 (1.0-2.8); Alkaline Phosphatase 55 U/L (38-126); Aspartate Aminotransferase 34 IU/L (14-36); BUN Creatinine Ratio 18.4 (6-22); Bilirubin Total 1.3 mg/dL (0.2-1.3); Blood Urea Nitrogen 14 mg/dL (7-17); Calcium 9.3 mg/dL (8.4-10.2); Carbon Dioxide 31 mmol/L (22-32); Chloride 101 mmol/L (98-107); Estimated Glomerular Filt Rate > 60.0 mL/min (>60); Globulin 2.6 g/dL (1.7-4.1); Glucose 81 mg/dL (80-110); HEMOLYSIS < 15 (0-50); Lipase 29 U/L (23-300); Potassium 4.3 mmol/L (3.4-5.1); Sodium 136 mmol/L (137-145)
== END ==
PROVIDERS: PCP Student in an Organized Health Care Education/Training Program; Referring Provider Family Medicine; Visit Provider Family Medicine
DX: R10.9 Unspecified abdominal pain (principal); R60.9 Edema, unspecified
CPT/HCPCS: 36415; 80053; 83690; 85025

== ENCOUNTER → 2021-10-13 14:43 | Outpatient (CLI) | payer MEDICARE, OTHER, SELFPAY ==
--- NOTE | 2021-10-13 14:51 | DI.CT.S_ITS ---
PROCEDURE: CT ABDOMEN PELVIS WO CON INDICATIONS: persistent right mid abdominal edema and discomfort TECHNIQUE: Noncontrast 5 mm thick sections acquired from the diaphragms to the symphysis. 5 mm coronal and sagittal reformats were then performed. For radiation dose reduction, the following was used: automated exposure control, adjustment of mA and/or kV according to patient size. COMPARISON: [facility], CT, CT ABDOMEN PELVIS WO CON, 06/28/2021, 13:58. FINDINGS: Image quality: Excellent. ABDOMEN: Lung bases: Lung bases are clear. Heart size is normal. Solid organs: Liver is normal in size. Gallbladder is status post cholecystectomy. Pancreas is normal in contours. Spleen is normal in size. No adrenal nodules. Kidneys are normal in size, without hydronephrosis or nephrolithiasis. Peritoneum and bowel: Unenhanced bowel loops demonstrate normal wall thickness and caliber. No free fluid or air. The appendix is normal. Nodes and vessels: No retroperitoneal or mesenteric adenopathy by size criteria. Aorta and inferior vena cava are normal in caliber. Miscellaneous: No ventral hernias. PELVIS: Genitourinary: Bladder wall thickness is normal. Miscellaneous: No inguinal hernias or adenopathy. Bones: Degenerative disc disease at L3-4 and L4-5. There is leftward curvature of the lumbar spine. No suspicious bony lesions. No vertebral body compression fractures. IMPRESSION: No acute abdominal or pelvic abnormality. Dictated by: Jalil Pham M.D. on 10/13/2021 at 16:35 Approved by: Jalil Pham M.D. on 10/13/2021 at 16:42
== END ==
PROVIDERS: PCP Family Medicine; Referring Provider Family Medicine; Visit Provider Family Medicine
DX: R60.9 Edema, unspecified (principal); R10.9 Unspecified abdominal pain
CPT/HCPCS: 74176

== ENCOUNTER → 2022-05-05 16:10 | Outpatient (CLI) | payer MEDICARE, OTHER, SELFPAY ==
[2022-05-07 22:23] LABS: ANA Screen, IFA Positive (.)
== END ==
PROVIDERS: PCP Family Medicine; Referring Provider Physician Assistant Medical; Visit Provider Physician Assistant Medical
DX: L30.9 Dermatitis, unspecified (principal)
CPT/HCPCS: 36415; 86038

== ENCOUNTER → 2022-06-05 12:42 | Outpatient (CLI) | payer MEDICARE, OTHER, SELFPAY ==
--- NOTE | 2022-06-05 12:48 | DI.MG.S_ITS ---
BILATERAL DIGITAL SCREENING MAMMOGRAM 3D/2D WITH CAD: 06/05/2022 CLINICAL: Routine screening. Family history of breast cancer. Comparison is made to exams dated: 05/07/2021 mammogram, 03/04/2020 mammogram, 03/02/2019 mammogram, 06/03/2021 mammogram, and 02/28/2018 mammogram - [facility]. Both breasts are heterogeneously dense, which may obscure small masses (category c / 51-75% glandular tissue). Current study was also evaluated with a Computer Aided Detection (CAD) system. No significant masses, calcifications, or other findings are seen in either breast. There has been no significant interval change. IMPRESSION: NEGATIVE There is no mammographic evidence of malignancy. A 1 year screening mammogram is recommended. Based on the Tyrer Cuzick model (a risk assessment model) the patient's lifetime risk is 6.8% and her 10 year risk is 4.3%. According to the ACR, ACS, and NCCN guidelines, an annual breast MRI exam along with mammogram is recommended if the patient's lifetime risk is 20% or greater. This exam was interpreted at Station ID: [id number]. NOTE: For mammograms, a report in lay terms will be sent to the patient. Approximately 15% of breast malignancies will not be visualized mammographically. In the management of a palpable breast mass, a negative mammogram must not discourage biopsy of a clinically suspicious lesion. Electronically Signed By: Tani wood/gretchen:06/05/2022 14:11:59 copy to: Anand Feldman letter sent: Normal Exam ACR BI-RADS Category 1: Negative [id number]
== END ==
PROVIDERS: PCP Family Medicine; Referring Provider Family Medicine; Visit Provider Family Medicine
DX: Z12.31 Encounter for screening mammogram for malignant neoplasm of breast (principal); Z80.3 Family history of malignant neoplasm of breast
CPT/HCPCS: 77063; 77067

== ENCOUNTER → 2022-12-26 12:56 | Outpatient (CLI) | payer MEDICARE, OTHER, SELFPAY ==
--- NOTE | 2022-12-26 13:00 | DI.CT.S_ITS ---
PROCEDURE: CT CHEST WO CON INDICATIONS: stable pulm nodule f/u TECHNIQUE: Noncontrast 5 mm thick sections acquired from the pulmonary apices to the posterior costophrenic angles. 1 mm lung window, 5 mm thick coronal and sagittal and 7 mm axial MIP reformats were then acquired. For radiation dose reduction, the following was used: automated exposure control, adjustment of mA and/or kV according to patient size. COMPARISON: [facility], CT, CT CHEST WO CON, 10/06/2018, 14:24. FINDINGS: Image quality: Excellent. Lungs and pleura: A 9 mm, indistinct, peer ground-glass nodule present laterally in the left upper lobe has not changed in size or morphology for four years. There is no development of solid component. No other lung nodules. No airspace opacities, consolidations, pleural effusions, or pleural plaquing. Central and peripheral airways are normal. Mediastinum: Heart size is at the upper limits of normal. Dual lead pacemaker leads are present. No pericardial effusion. Aorta and pulmonary arteries are normal caliber. No bulky adenopathy. The esophagus is normal without hiatal hernia. No anterior mediastinal mass. Bones and chest wall: Left chest power pack. Thyroid gland has a normal appearance. No soft tissue masses in the chest wall, axilla, or supraclavicular regions. Osseous structures demonstrate moderate degenerative disc and endplate changes in the thoracic spine. Abdomen: Visualized upper abdominal solid organs and bowel loops appear normal in the absence of contrast. IMPRESSION: 1. Stable subcentimeter ground-glass nodule in the left upper lobe. Two year follow-up chest CT recommended. 2. No new lung nodules or suspicious adenopathy. Dictated by: Jaclyn العلي M.D. on 12/26/2022 at 22:21 Approved by: Jaclyn العلي M.D. on 12/26/2022 at 22:39
== END ==
PROVIDERS: PCP Family Medicine; Referring Provider Pediatrics; Visit Provider Pediatrics
DX: R91.1 Solitary pulmonary nodule (principal)
CPT/HCPCS: 71250

== ENCOUNTER → 2023-05-25 10:19 | Outpatient (CLI) | payer MEDICARE, OTHER, SELFPAY ==
--- NOTE | 2023-05-25 10:21 | DI.RAD.S_ITS ---
PROCEDURE: XR HIP W PEL IF DONE RT 2V INDICATIONS: right hip pain TECHNIQUE: AP pelvis with lateral view(s) of the right hip(s). COMPARISON: [facility], CR, XR HIP W PEL IF DONE RT 2V, 06/22/2021, 17:56. FINDINGS: Bones: No fractures or dislocations. Right worse than left bilateral hip joint osteoarthritic changes are seen with superior joint space narrowing and subchondral sclerosis. No evidence of avascular necrosis of femoral head. Pelvic ring appears intact. No suspicious bony lesions. Soft tissues: The visualized bowel gas pattern is normal. No suspicious soft tissue calcifications. IMPRESSION: Right worse than left bilateral hip joint osteoarthritis. No pelvic or hip fracture. No evidence of avascular necrosis. Dictated by: Israel Bruce M.D. on 05/25/2023 at 16:19 Approved by: Israel Bruce M.D. on 05/25/2023 at 16:20
== END ==
PROVIDERS: PCP Family Medicine; Referring Provider Family Medicine; Visit Provider Family Medicine
DX: M16.0 Bilateral primary osteoarthritis of hip (principal); M48.061 Spinal stenosis, lumbar region without neurogenic claudication; M41.9 Scoliosis, unspecified; M25.551 Pain in right hip
CPT/HCPCS: 73502

== ENCOUNTER → 2023-05-26 08:01 | Outpatient (CLI) | payer MEDICARE, OTHER, SELFPAY ==
[2023-05-26 08:52] LABS: Add Manual Diff / Slide Review NO; Basophils Absolute Auto 100 /uL (0-100); Basophils Percent Auto 1.1 % (0-2); Eosinophils Absolute Auto 400 /uL (0-450); Hematocrit 38.5 % (36-46); Hemoglobin 13.1 g/dL (12.0-16.0); Lymphocytes Absolute Auto 1700 /uL (1100-4500); Lymphocytes Percent Auto 23.1 % (25-40); Mean Corpuscular Hemoglobin 29.7 PG (26-34); Mean Corpuscular Volume 87.2 fL (80-100); Monocytes Absolute Auto 600 /uL (0-900); Monocytes Percent Auto 7.4 % (3-14); Neutrophils Absolute Auto 4700 /uL (1500-7000); Neutrophils Percent Auto 63.4 % (50-75); Platelet Count 238 X10^3/uL (150-400); Red Blood Cell Count 4.42 X10^6/uL (4.0-5.2); Red Cell Distribution Width 13.6 % (11.6-14.8); White Blood Cell Count 7.5 X10^3/uL (4.5-11.0)
[2023-05-26 09:12] LABS: Alanine Aminotransferase 18 IU/L (<35); Albumin 4.2 g/dL (3.5-5.0); Albumin Globulin Ratio 1.7 (1.0-2.8); Alkaline Phosphatase 51 U/L (38-126); Aspartate Aminotransferase 24 IU/L (14-36); BUN Creatinine Ratio 21.3 (6-22); Bilirubin Total 0.9 mg/dL (0.2-1.3); Blood Urea Nitrogen 16 mg/dL (7-17); Calcium 10.1 mg/dL (8.4-10.2); Carbon Dioxide 26 mmol/L (22-32); Chloride 104 mmol/L (98-107); Cholesterol 181 mg/dL (140-199); Estimated Glomerular Filt Rate > 60 mL/min (>60); Globulin 2.5 g/dL (1.7-4.1); Glucose 91 mg/dL (80-110); HDL Cholesterol 82 mg/dL (40-60); HEMOLYSIS < 15 (0-50); LDL Cholesterol Calculated 87 mg/dL (<100); Potassium 4.3 mmol/L (3.4-5.1); Sodium 136 mmol/L (137-145); Total Protein 6.7 g/dL (6.3-8.2); Triglycerides 58 mg/dL (35-150)
[2023-05-26 09:29] LABS: Creatinine Urine Random 110.9 mg/dL
[2023-05-26 09:38] LABS: Microalbumin Urine Random < 0.6 mg/dL (0-1.6)
[2023-05-26 09:48] LABS: TSH w/ Reflex to FT4 1.85 uIU/mL (0.47-4.68)
[2023-05-26 10:05] LABS: Vitamin B12 806 pg/mL (239-931)
[2023-05-27 16:14] LABS: Hep C Virus Ab w/Reflex Quant NEGATIVE s/c (NEGATIVE)
== END ==
PROVIDERS: PCP Family Medicine; Referring Provider Family Medicine; Visit Provider Family Medicine
DX: R91.1 Solitary pulmonary nodule (principal); R41.3 Other amnesia; M85.80 Other specified disorders of bone density and structure, unspecified site; I49.5 Sick sinus syndrome; Z86.79 Personal history of other diseases of the circulatory system
CPT/HCPCS: 36415; 80053; 80061; 82043; 82570; 82607; 84443; 85025; 86803

== ENCOUNTER → 2023-06-01 11:08 | Outpatient (CLI) | payer MEDICARE, OTHER, SELFPAY ==
[2023-06-02 15:52] LABS: Fecal Immunochemical Test Negative (Negative)
== END ==
PROVIDERS: PCP Family Medicine; Referring Provider Family Medicine; Visit Provider Family Medicine
DX: Z12.11 Encounter for screening for malignant neoplasm of colon (principal)
CPT/HCPCS: 82274

== ENCOUNTER → 2023-06-04 11:19 | Outpatient (CLI) | payer MEDICARE, OTHER, SELFPAY ==
--- NOTE | 2023-06-04 | DI.RAD.S_ITS ---
Bone Density Report Name: AIDA RIDER Age: 73 Sex: Female Ethnicity: White Date of : 1950 Indication: osteopenia; monitoring treatment; Referring Provider: RON GRIDER Study: Bone densitometry was performed. Exam Date: June 04, 2023 Accession number: [id number] Bone Density: Region BMD T-score Z-score Classification AP Spine(L1-L4) 1.163 1.1 3.2 Normal Femoral Neck (Left) 0.661 -1.7 0.2 Osteopenia Total Hip (Left) 0.758 -1.5 0.1 Osteopenia Femoral Neck (Right) 0.727 -1.1 0.8 Osteopenia Total Hip (Right) 0.827 -0.9 0.6 Normal Total Hip Mean 0.793 -1.2 0.4 Osteopenia World Health Organization criteria for BMD impression classify patients as: Normal (T-score at or above -1.0), Osteopenia (T-score between -1.0 and -2.5), or Osteoporosis (T-score at or below -2.5). 10-year Fracture Risk: FRAX not reported because: Treated for osteoporosis Previous Exams: -- Region Exam Age BMD T-score BMD Change BMD Change Date g/cm2 vs Baseline vs Previous -- AP Spine (L1-L4) 06/04/2023 73 1.163 1.1 -0.040 (-3.3%)# -0.012 (-1.0%)# 03/29/2020 70 1.175 1.2 -0.029 (-2.4%)* 0.058 (5.2%)* 11/01/2018 68 1.117 0.6 -0.087 (-7.2%)* 0.004 (0.4%) 12/18/2015 65 1.112 0.6 -0.091 (-7.6%)* 0.017 (1.6%) 10/04/2013 63 1.095 0.4 -0.108 (-9.0%)* -0.036 (-3.2%)* 03/31/2010 60 1.131 0.8 -0.072 (-6.0%)* -0.072 (-6.0%)* 08/25/2004 54 1.204 1.4 Total Hip(Left) 06/04/2023 73 0.758 -1.5 -0.112 (-12.9%)# -0.008 (-1.0%)# 03/29/2020 70 0.766 -1.4 -0.104 (-12.0%)* 0.033 (4.5%)* 11/01/2018 68 0.733 -1.7 -0.137 (-15.8%)* -0.022 (-3.0%) 12/18/2015 65 0.755 -1.5 -0.115 (-13.2%)* -0.008 (-1.1%) 10/04/2013 63 0.764 -1.5 -0.107 (-12.2%)* -0.024 (-3.0%) 03/31/2010 60 0.788 -1.3 -0.083 (-9.5%)* -0.083 (-9.5%)* 08/25/2004 54 0.870 -0.6 Total Hip(Right) 06/04/2023 73 0.827 -0.9 -0.055 (-6.3%)# 0.032 (4.0%)# 03/29/2020 70 0.795 -1.2 -0.087 (-9.9%)* 0.005 (0.6%) 11/01/2018 68 0.791 -1.2 -0.092 (-10.4%)* 0.007 (0.8%) 12/18/2015 65 0.784 -1.3 -0.098 (-11.2%)* -0.038 (-4.7%)* 10/04/2013 63 0.822 -1.0 -0.060 (-6.8%)* 0.019 (2.3%) 03/31/2010 60 0.804 -1.1 -0.079 (-8.9%)* -0.079 (-8.9%)* 08/25/2004 54 0.882 -0.5 -- *Denotes significance at 95% confidence level, LSC for AP Spine = 0.022 g/cm2, LSC for Total Hip = 0.027 g/cm2 # Denotes dissimilar scan types or analysis methods Impression: The patient has low bone mass, based on the Left Femoral Neck T-score. No significant bone loss was observed. Discussion: PATIENT UNDER TREATMENT WITH NO SIGNIFICANT BMD LOSS SINCE LAST EXAM. In an untreated patient, BMD typically declines with age. A lack of decline or gain is usually a sign that treatment is efficacious and fracture risk is reduced. It is important to ask patients whether they are taking their medications and to encourage continued and appropriate compliance with their osteoporosis therapies to reduce fracture risk. It is also important to review their risk factors and encourage appropriate calcium and vitamin D intakes, exercise, fall prevention and other lifestyle measures. Follow-Up: Consider a repeat BMD and Vertebral Fracture Assessment (VFA) exam in 2 years or sooner if medically necessary, to reassess this patient's status. Reported by: NICK URBINA M.D. on 06/04/2023 12:01:00 PM.
== END ==
PROVIDERS: PCP Family Medicine; Referring Provider Family Medicine; Visit Provider Family Medicine
DX: M85.89 Other specified disorders of bone density and structure, multiple sites (principal)
CPT/HCPCS: 77080

== ENCOUNTER → 2023-06-10 09:34 | Outpatient (CLI) | payer MEDICARE, OTHER, SELFPAY ==
--- NOTE | 2023-06-10 09:37 | DI.US.S_ITS ---
LIMITED ULTRASOUND OF LEFT BREAST: 06/10/2023 CLINICAL: Intermittent pain in left breast. Comparison is made to exams dated: 06/10/2023 mammogram, 06/05/2022 mammogram, 06/03/2021 mammogram, 05/07/2021 mammogram, 03/04/2020 mammogram, and 03/20/2019 mammogram - [facility]. Ultrasound of the left breast 2 o'clock, and retroareolar regions was performed. Chopra scale images of the real-time examination were reviewed. No significant abnormalities were seen sonographically in the left breast. Specifically, no finding to explain the patient's anterior depth breast pain. No finding to correspond to the patient's possible 2:00 mammographic asymmetry. IMPRESSION: NEGATIVE There is no abnormality seen in the left breast to correspond with the pain. This may be due to post surgical changes following pacemaker placement. There is no abnormality seen in the left breast to correspond with the incidental mammography finding at 2 o'clock. This is consistent with overlapping fibroglandular tissue. Return to annual mammogram screening schedule is recommended. Findings and recommendations were conveyed to the patient at time of exam. This exam was interpreted at Station ID: [id number]. Electronically Signed By: Jaclyn harrison/:06/10/2023 11:00:37 copy to: Anand Feldman letter sent: Normal Exam Ultrasound BI-RADS: 1 Negative
--- NOTE | 2023-06-10 09:37 | DI.MG.S_ITS ---
BILATERAL DIGITAL DIAGNOSTIC MAMMOGRAM 3D/2D: 06/10/2023 CLINICAL: Left breast pain. Comparison is made to exams dated: 06/05/2022 mammogram, 05/07/2021 mammogram, and 03/04/2020 mammogram - [facility]. There are scattered areas of fibroglandular density in both breasts (category b / 25%-50% glandular tissue). No correlate to the patient's anterior left breast pain. There is an incidental possible developing irregular high density asymmetry in the left breast at 2 o'clock middle depth. This is not seen in additional views, possibly related to decreased compression. No other significant masses, calcifications, or other findings are seen in either breast. Mammograms are otherwise stable. IMPRESSION: INCOMPLETE: NEEDS ADDITIONAL IMAGING EVALUATION There is no abnormality seen in the left breast to correspond with the pain in the anterior depth. Ultrasound is recommended for full evaluation of this area. This was performed immediately following this exam. The incidental possible asymmetry in the left breast most likely is fibroglandular tissue but remains indeterminate. An ultrasound is recommended. This was performed immediately following this exam. Based on the Tyrer Cuzick model (a risk assessment model) the patient's lifetime risk is 4.3% and her 10 year risk is 2.9%. According to the ACR, ACS, and NCCN guidelines, an annual breast MRI exam along with mammogram is recommended if the patient's lifetime risk is 20% or greater. This exam was interpreted at Station ID: [id number]. NOTE: For mammograms, a report in lay terms will be sent to the patient. Approximately 15% of breast malignancies will not be visualized mammographically. In the management of a palpable breast mass, a negative mammogram must not discourage biopsy of a clinically suspicious lesion. Electronically Signed By: Jaclyn harrison/:06/10/2023 10:23:11 copy to: Anand Feldman ACR BI-RADS Category 0: Incomplete [id number]
== END ==
PROVIDERS: PCP Family Medicine; Referring Provider Family Medicine; Visit Provider Family Medicine
DX: N64.4 Mastodynia (principal); R92.2 Inconclusive mammogram
CPT/HCPCS: 76642; 77066; G0279

== ENCOUNTER 2023-08-13 08:29 | Emergency (ER) | payer MEDICARE, OTHER, SELFPAY ==
[2023-08-13 08:34] VITALS: BP 110/60; PULSE 81; RESP 13; TEMP 36.3; O2SAT 100; BMI 23.9
--- NOTE | 2023-08-13 08:48 | PC.NURSE ---
area cleaned with saline and wet gauze applied until seen by
--- NOTE | 2023-08-13 09:02 | ED_ITS ---
HPI - Wound/Laceration General Chief Complaint: Wound/Laceration Stated Complaint: rt hand laceration Time Seen by Provider: 08/13/23 09:02 Source: patient Mode of arrival: Family Vehicle Limitations: no limitations History of Present Illness HPI narrative: 73-year-old female with history of cardiac arrhythmia and pacemaker who presents with a complaint skin to her dorsum of her right hand. Patient was going up the stairs she missed the hand rail and caught her hand on a metal dog gate causing a skin tear to the dorsum of her hand. She states her tetanus is up-to-date denies any other injuries. No falls. Patient states she came because she can see a little bit of the muscle and tendon underneath of her hand. Patient denies any numbness tingling weakness or other injuries. Patient tetanus UTD: Yes Related Data Home Medications Medication Instructions Recorded Confirmed CHOLECALCIFEROL (VITAMIN D) 3,000 iu PO QDAY ##0 07/24/11 08/03/23 Metoprolol Tartrate (LOPRESSOR) 12.5 mg PO QDAY ##0 07/24/11 08/03/23 CALCIUM/PHYTONADIONE/SODIUM/ 1 ctb PO QDAY ##0 12/31/11 08/03/23 (#VIACTIV CALCIUM) aspirin 81 mg tablet,delayed 81 mg PO QDAY ##0 12/31/11 08/03/23 release VITAMIN B COMPLEX (Vitamin B 1 tab PO QDAY ##0 11/14/12 08/03/23 Complex) ascorbic acid (vitamin C) 500 mg 500 mg PO QDAY ##0 11/14/12 08/03/23 tablet vitamins A,C,M-oixy-[id number] 4,296 1 cap PO BID 01/04/19 08/03/23 mcg-226 mg-90 mg capsule (PreserVision AREDS) Chondroitin Sulfate/Glucosam 1,500 cap PO QDAY ##0 04/23/20 08/03/23 (GLUCOSAMINE/CHONDROITIN) OMEGA-3 FATTY ACIDS/STEVIA E 1 mg PO BID ##0 04/23/20 08/03/23 (#COROMEGA OMEGA-3 12 MG-650 MG-10 MG-3 IU) PreserVision Lutein 2 cap PO DAILY 08/21/20 08/03/23 cyclosporine 0.05 % eye drops drp EYE-BOTH 10/09/21 08/03/23 (Restasis MultiDose) Allergies Allergy/AdvReac Type Severity Reaction Status Date / Time avocado Allergy Severe Anaphylaxis Verified 08/03/23 11:05 Iodinated Contrast Media Allergy Severe ANAPHYLAXIS Verified 08/03/23 11:05 [Iodinated Contrast Media - IV Dye] monosodium glutamate Allergy Severe ANAPHYLAXIS Verified 08/03/23 11:05 shellfish derived Allergy Severe Anaphylaxis Verified 08/03/23 11:05 oxymetazoline Allergy Mild difficulty Verified 08/03/23 11:05 [From AFRIN (OXYMETAZOLINE)] breathing mannitol [From Reclast] AdvReac Severe riggers Verified 08/03/23 11:05 zoledronic acid AdvReac Severe riggers Verified 08/03/23 11:05 [From Reclast] epinephrine AdvReac Intermediate HEART GOES Verified 08/03/23 11:05 TO FAST morphine AdvReac Intermediate Anxiety Verified 08/03/23 11:05 codeine AdvReac Mild GI Verified 08/03/23 11:05 INTOLERANCE erythromycin base AdvReac Mild GI Verified 08/03/23 11:05 INTOLERANCE Penicillins AdvReac Mild GI Verified 08/03/23 11:05 INTOLERANCE hydrocodone AdvReac Unknown GI, Verified 08/03/23 11:05 DIZZINESS Review of Systems Review of Systems ROS Unobtainable: All systems reviewed & are unremarkable except as noted in HPI and below Patient History Medical History Scoliosis History of PSVT (paroxysmal supraventricular tachycardia) Stenosis of innominate vein (2015) Arthritis RLS (restless legs syndrome) DDD (degenerative disc disease) Lumbar spinal stenosis Metatarsal fracture (1995) Foot pain Mumps Measles Chicken pox Abnormally prolonged clotting time Macular degeneration (1991) Tinnitus Rupture of tympanic membrane Painful menstrual periods History of heavy periods Endometriosis Abnormal Pap smear of cervix (~1999) Stress incontinence Hemorrhoids (1988) SA node dysfunction Sinus bradycardia Complete AV block Bradycardia Cardiac arrhythmia (~1971) Surgical History History of total left knee replacement Anesthesia Status post removal of cervix Elective replacement indicated for cardiac pacemaker battery at end of lifespan (10/2015) Status post placement of cardiac pacemaker (06/2010) Status post placement of implantable loop recorder (11/2009) Status post arthroscopy Status post laparoscopic cholecystectomy (1997) Family History Father Recurrent incisional hernia with complication Grandfather Brain aneurysm Grandmother Diabetes mellitus Mother Fractured hip Sepsis Diabetes mellitus Grandfather CVA (cerebral vascular accident) Grandmother Stomach cancer Social History household members: spouse Smoking Status: Never smoker alcohol intake: current Smoking Status: Never smoker alcohol intake frequency: holidays/special occasions only Substance Use Type: does not use Exam Narrative Exam Narrative: GENERAL: Alert and oriented x three, well-appearing female in mild distress. HEENT: Head normocephalic, atraumatic, EOMI, pupils reactive, face symmetric, moist mucous membranes NECK: Supple, full range of motion EXTREMITIES: Normal range of motion, no clubbing or edema. Neurovascularly intact. Patient has 3 cm skin tear semi circular there is some slight gap edge on the medial side. It is over the dorsum of the hand does not have any tendon or muscular involvement. Patient has full range of motion board 2+ radial pulse, cap refill less than 2 seconds in all 5 fingers with normal sensation and movement throughout. NEUROLOGICAL: Cranial nerves II through XII grossly intact. Moving all extremities SKIN: Warm, dry, no petechiae, no rashes or lesions. Initial Vital Signs Initial Vital Signs: Vital Signs Temperature 97.4 F L 08/13/23 08:34 Pulse Rate 81 08/13/23 08:34 Respiratory Rate 13 08/13/23 08:34 Blood Pressure 110/60 08/13/23 08:34 Pulse Oximetry 100 08/13/23 08:34 Oxygen Delivery Method Room Air 08/13/23 08:34 Procedures Laceration Repair Laceration 1: Side (If applicable): left Size (cm): 3 Description: clean and other (semicircular) Depth: simple, single layer Skin layer closed with: dermabond (steristrips) Course Vital Signs Vital signs: Vital Signs - 8 hr 08/13/23 08:34 Temperature 97.4 F L Pulse Rate 81 Respiratory Rate 13 Blood Pressure 110/60 Pulse Oximetry 100 Oxygen Delivery Method Room Air MDM - Wound/Laceration MDM Narrative Medical decision making narrative: 73-year-old female with skin tear to the dorsum of the right hand, skin is too thin to suture but one portion is little bit more gapped and would probably benefit from Steri-Strips and a little bit of Dermabond. Skin is clean dry and does not appear to be in contaminated in any way. Was cleansed by myself with saline, please 2 small amount of Dermabond and Steri-Strips to the area. Bandage including a small splint was given to the patient help prevent the wound from gapping for movement. Discussed signs and symptoms to watch for, return precautions all questions answered patient feels comfortable with this plan. Discharge Plan Departure Patient Disposition: Home Clinical Impression: Skin tear of hand without complication Instructions: DI for Laceration Repair-Skin Glue Activity Restrictions/Additional Instructions: Wound Care: Keep wound(s) clean and dry. Wash daily with soap and water only then pat dry. Do not use over the counter products (alcohol or peroxide)on the wounds unless instructed by a physician. You can trim the edges of the steri-strips as needed if they peel up. If wound condition worsens (increased/expanding redness, developing fluid blisters, or worsening pain), either contact your doctor for an urgent re- assessment , or return to the Emergency Department. Return if fever greater than 100.4 Fahrenheit, increased swelling, increasing pain or worsening symptoms such as increased discharge or spreading redness. Prescriptions: No Action Metoprolol Tartrate (LOPRESSOR) 12.5 mg tablet 12.5 mg PO QDAY Qty: 0 CHOLECALCIFEROL (VITAMIN D) 3,000 iu PO QDAY Qty: 0 aspirin 81 MG tablet,delayed release (DR/EC) 81 mg PO QDAY Qty: 0 CALCIUM/PHYTONADIONE/SODIUM/ (#VIACTIV CALCIUM) 1 ctb PO QDAY Qty: 0 ascorbic acid (vitamin C) 500 MG tablet 500 mg PO QDAY Qty: 0 VITAMIN B COMPLEX (Vitamin B Complex) 1 tab PO QDAY Qty: 0 Chondroitin Sulfate/Glucosam (GLUCOSAMINE/CHONDROITIN) 1,500 cap PO QDAY Qty: 0 Rx Instructions: pt takes two tablets bid OMEGA-3 FATTY ACIDS/STEVIA E (#COROMEGA OMEGA-3 12 MG-650 MG-10 MG-3 IU) 1 mg PO BID Qty: 0 Rx Instructions: takes one capsule bid PreserVision AREDS [id number] capsule 1 cap PO BID Restasis MultiDose 0.05 % drops EYE-BOTH PreserVision Lutein 2 cap PO DAILY Referrals: Nahid Avalos MD [Primary Care Provider] - Stand Alone Forms: Patient Portal/API
--- NOTE | 2023-08-13 09:33 | PC.NURSE ---
Non adherent gauze and kurlex applied. Importance of washing wound and keeping area clean and dry reiterated.
== END 2023-08-13 09:35 | disposition home or self-care (01) ==
PROVIDERS: Emergency Provider Emergency Medicine; PCP Family Medicine
DX: S61.411A Laceration without foreign body of right hand, initial encounter (principal); W26.9XXA Contact with unspecified sharp object(s), initial encounter
CPT/HCPCS: 99281; 99282

== ENCOUNTER 2023-08-18 17:55 | Emergency (ER) | payer MEDICARE, OTHER, SELFPAY ==
[2023-08-18 18:08] VITALS: BP 132/66; PULSE 64; RESP 16; TEMP 36.6; O2SAT 98; BMI 24.1
--- NOTE | 2023-08-18 18:23 | ED_ITS ---
HPI - Recheck/Abnormal Lab/Rx General Chief Complaint: Recheck/Abnormal Lab/Rx Stated Complaint: rt hand skin tear Time Seen by Provider: 08/18/23 18:17 Source: patient Mode of arrival: Family Vehicle History of Present Illness HPI narrative: 73-year-old female who was seen here in the emergency department several days ago after having a fall. She sustained a skin tear to her right hand. It was closed with Steri-Strips. She was told that if she started to have drainage, redness or swelling to the area that she needed to return for further evaluation. She states over the past 24 hours she had has noticed all of those symptoms. The Steri-Strips are still in place. Related Data Home Medications Medication Instructions Recorded Confirmed CHOLECALCIFEROL (VITAMIN D) 3,000 iu PO QDAY ##0 07/24/11 08/03/23 Metoprolol Tartrate (LOPRESSOR) 12.5 mg PO QDAY ##0 07/24/11 08/03/23 CALCIUM/PHYTONADIONE/SODIUM/ 1 ctb PO QDAY ##0 12/31/11 08/03/23 (#VIACTIV CALCIUM) aspirin 81 mg tablet,delayed 81 mg PO QDAY ##0 12/31/11 08/03/23 release VITAMIN B COMPLEX (Vitamin B 1 tab PO QDAY ##0 11/14/12 08/03/23 Complex) ascorbic acid (vitamin C) 500 mg 500 mg PO QDAY ##0 11/14/12 08/03/23 tablet vitamins A,C,E-oznu-gcdkka 4,296 1 cap PO BID 01/04/19 08/03/23 mcg-226 mg-90 mg capsule (PreserVision AREDS) Chondroitin Sulfate/Glucosam 1,500 cap PO QDAY ##0 04/23/20 08/03/23 (GLUCOSAMINE/CHONDROITIN) OMEGA-3 FATTY ACIDS/STEVIA E 1 mg PO BID ##0 04/23/20 08/03/23 (#COROMEGA OMEGA-3 12 MG-650 MG-10 MG-3 IU) PreserVision Lutein 2 cap PO DAILY 08/21/20 08/03/23 cyclosporine 0.05 % eye drops drp EYE-BOTH 10/09/21 08/03/23 (Restasis MultiDose) Previous Rx's Medication Instructions Recorded cephalexin 500 mg capsule 500 mg PO QID 7 days #28 caps 08/18/23 Allergies Allergy/AdvReac Type Severity Reaction Status Date / Time avocado Allergy Severe Anaphylaxis Verified 08/03/23 11:05 Iodinated Contrast Media Allergy Severe ANAPHYLAXIS Verified 08/03/23 11:05 [Iodinated Contrast Media - IV Dye] monosodium glutamate Allergy Severe ANAPHYLAXIS Verified 08/03/23 11:05 shellfish derived Allergy Severe Anaphylaxis Verified 08/03/23 11:05 oxymetazoline Allergy Mild difficulty Verified 08/03/23 11:05 [From AFRIN (OXYMETAZOLINE)] breathing mannitol [From Reclast] AdvReac Severe riggers Verified 08/03/23 11:05 zoledronic acid AdvReac Severe riggers Verified 08/03/23 11:05 [From Reclast] epinephrine AdvReac Intermediate HEART GOES Verified 08/03/23 11:05 TO FAST morphine AdvReac Intermediate Anxiety Verified 08/03/23 11:05 codeine AdvReac Mild GI Verified 08/03/23 11:05 INTOLERANCE erythromycin base AdvReac Mild GI Verified 08/03/23 11:05 INTOLERANCE Penicillins AdvReac Mild GI Verified 08/03/23 11:05 INTOLERANCE hydrocodone AdvReac Unknown GI, Verified 08/03/23 11:05 DIZZINESS Review of Systems Musculoskeletal Musculoskeletal: Reports system reviewed and no additional complaints, except as documented Integumentary/Breasts Skin/Breast: Reports system reviewed and no additional complaints, except as documented Neurologic Neurologic: Reports system reviewed and no additional complaints, except as documented Patient History Medical History Scoliosis History of PSVT (paroxysmal supraventricular tachycardia) Stenosis of innominate vein (2015) Arthritis RLS (restless legs syndrome) DDD (degenerative disc disease) Lumbar spinal stenosis Metatarsal fracture (1995) Foot pain Mumps Measles Chicken pox Abnormally prolonged clotting time Macular degeneration (1991) Tinnitus Rupture of tympanic membrane Painful menstrual periods History of heavy periods Endometriosis Abnormal Pap smear of cervix (~1999) Stress incontinence Hemorrhoids (1988) SA node dysfunction Sinus bradycardia Complete AV block Bradycardia Cardiac arrhythmia (~1971) Surgical History History of total left knee replacement Anesthesia Status post removal of cervix Elective replacement indicated for cardiac pacemaker battery at end of lifespan (10/2015) Status post placement of cardiac pacemaker (06/2010) Status post placement of implantable loop recorder (11/2009) Status post arthroscopy Status post laparoscopic cholecystectomy (1997) Family History Father Recurrent incisional hernia with complication Grandfather Brain aneurysm Grandmother Diabetes mellitus Mother Fractured hip Sepsis Diabetes mellitus Grandfather CVA (cerebral vascular accident) Grandmother Stomach cancer Social History household members: spouse Smoking Status: Never smoker alcohol intake: current Smoking Status: Never smoker alcohol intake frequency: holidays/special occasions only Substance Use Type: does not use Exam Initial Vital Signs Initial Vital Signs: Vital Signs Temperature 97.9 F 08/18/23 18:08 Pulse Rate 64 08/18/23 18:08 Respiratory Rate 16 08/18/23 18:08 Blood Pressure 132/66 08/18/23 18:08 Pulse Oximetry 98 08/18/23 18:08 Oxygen Delivery Method Room Air 08/18/23 18:08 Skin Other: Patient does have a skin tear to the back of the right hand that is closed with well-approximated edges with 3 Steri-Strips. There is some minor swelling and erythema around the area. I do not notice any specific drainage with the patient states that it was draining earlier today. Course Orders Ordered: Discontinued Medications Cephalexin HCl (Cephalexin 250 Mg Capsule) 500 mg PO NOW ONE Stop: 08/18/23 18:24 Last Admin: 08/18/23 18:33 Dose: 500 mg Documented By: SB Vital Signs Vital signs: Vital Signs - 8 hr 08/18/23 18:08 Temperature 97.9 F Pulse Rate 64 Respiratory Rate 16 Blood Pressure 132/66 Pulse Oximetry 98 Oxygen Delivery Method Room Air MDM - Recheck/Abnormal Lab/Rx MDM Narrative Medical decision making narrative: I did not remove the Steri-Strips. There is some swelling and redness around the area. Will start her on antibiotics. First dose was here in the ER. Prescription was sent to the pharmacy of her choice. She was given return precautions. She expressed understanding and agreement. Discharge Plan Departure Patient Disposition: Home Clinical Impression: Cellulitis Instructions: DI for Cellulitis -- Adult Activity Restrictions/Additional Instructions: Antibiotics for sent to [facility] per your request. Please take them as directed. Return to the emergency department for new symptoms. Prescriptions: New cephalexin 500 mg capsule 500 mg PO QID 7 Days Qty: 28 0RF No Action Metoprolol Tartrate (LOPRESSOR) 12.5 mg tablet 12.5 mg PO QDAY Qty: 0 CHOLECALCIFEROL (VITAMIN D) 3,000 iu PO QDAY Qty: 0 aspirin 81 MG tablet,delayed release (DR/EC) 81 mg PO QDAY Qty: 0 CALCIUM/PHYTONADIONE/SODIUM/ (#VIACTIV CALCIUM) 1 ctb PO QDAY Qty: 0 ascorbic acid (vitamin C) 500 MG tablet 500 mg PO QDAY Qty: 0 VITAMIN B COMPLEX (Vitamin B Complex) 1 tab PO QDAY Qty: 0 Chondroitin Sulfate/Glucosam (GLUCOSAMINE/CHONDROITIN) 1,500 cap PO QDAY Qty: 0 Rx Instructions: pt takes two tablets bid OMEGA-3 FATTY ACIDS/STEVIA E (#COROMEGA OMEGA-3 12 MG-650 MG-10 MG-3 IU) 1 mg PO BID Qty: 0 Rx Instructions: takes one capsule bid PreserVision AREDS 14,320-226-200 bebp-vt-qhdp capsule 1 cap PO BID Restasis MultiDose 0.05 % drops EYE-BOTH PreserVision Lutein 2 cap PO DAILY Referrals: Nahid Avalos MD [Primary Care Provider] - Stand Alone Forms: Patient Portal/API
[2023-08-18] MEDS: cephALEXin 250 MG CAPSULE 500 MG PO (18:33)
[2023-08-18 18:41] VITALS: BP 129/74; PULSE 76; O2SAT 97
== END 2023-08-18 18:42 | disposition home or self-care (01) ==
PROVIDERS: Emergency Provider Emergency Medicine; PCP Family Medicine
DX: L03.113 Cellulitis of right upper limb (principal)
CPT/HCPCS: 99283

== ENCOUNTER → 2024-06-22 15:15 | Outpatient (CLI) | payer MEDICARE, OTHER, SELFPAY ==
--- NOTE | 2024-06-22 | DI.MG.S_ITS ---
BILATERAL DIGITAL SCREENING MAMMOGRAM 3D/2D WITH CAD: 06/22/2024 CLINICAL: Routine screening. Family history of breast cancer. Comparison is made to exams dated: 06/10/2023 mammogram, 06/05/2022 mammogram, and 05/07/2021 mammogram - [facility]. There are scattered areas of fibroglandular density (category b / 25%-50% glandular tissue). Current study was also evaluated with a Computer Aided Detection (CAD) system. No significant masses, calcifications, or other findings are seen in either breast. There has been no significant interval change. IMPRESSION: NEGATIVE There is no mammographic evidence of malignancy. A 1 year screening mammogram is recommended. Based on the Tyrer Cuzick model (a risk assessment model) the patient's lifetime risk is 4.0% and her 10 year risk is 3.0%. According to the ACR, ACS, and NCCN guidelines, an annual breast MRI exam along with mammogram is recommended if the patient's lifetime risk is 20% or greater. This exam was interpreted at Station ID: [id number]. NOTE: For mammograms, a report in lay terms will be sent to the patient. Approximately 15% of breast malignancies will not be visualized mammographically. In the management of a palpable breast mass, a negative mammogram must not discourage biopsy of a clinically suspicious lesion. Electronically Signed By: Tani wood/gretchen:06/23/2024 09:12:25 copy to: Anand Feldman letter sent: Normal Exam ACR BI-RADS Category 1: Negative
== END ==
PROVIDERS: PCP Family Medicine; Referring Provider Family Medicine; Visit Provider Family Medicine
DX: Z12.31 Encounter for screening mammogram for malignant neoplasm of breast (principal); Z80.3 Family history of malignant neoplasm of breast
CPT/HCPCS: 77063; 77067

== ENCOUNTER → 2024-06-30 15:21 | Outpatient (CLI) | payer MEDICARE, OTHER, SELFPAY ==
--- NOTE | 2024-06-30 15:22 | DI.US.S_ITS ---
PROCEDURE: US EXTREMITY NONVASC UPPER LT INDICATIONS: please look for any tears, ligaments, rotator cuff, deltoid TECHNIQUE: Real-time scanning was performed of the left shoulder , with image documentation. COMPARISON: [facility], CR, XR SHOULDER 2+ VIEWS LEFT, 12/20/2023, 10:44. FINDINGS: * Long head of the biceps tendon: Diminutive but intact within the bicipital groove. No significant fluid in the tendon sheath. * Subscapularis: Mild tendinosis. No focal tear. * Infraspinatus: Mild tendinosis. No focal tear. * Supraspinatus: Severe tendinosis with multifocal partial width, partial-thickness articular sided tears at the footprint, covering approximately 20% of the footprint. No focal tendon retraction. Small foci of calcific tendinosis at the footprint, better identified on the 12/20/2023 left shoulder x-ray * Glenohumeral joint: No significant joint effusion. * Muscle bulk: Mild supraspinatus and deltoid muscle atrophy. Otherwise, muscle bulk is preserved. IMPRESSION: 1. Severe supraspinatus tendinosis with multifocal partial width, partial-thickness, articular sided tears at the footprint, superimposed on mild muscle atrophy and calcific tendinosis. 2. Mild infraspinatus tendinosis. 3. Mild subscapularis tendinosis. 4. Mild deltoid muscle atrophy. Dictated by: Ajit Gaona M.D. on 06/30/2024 at 16:12 Approved by: Ajit Gaona M.D. on 06/30/2024 at 16:16
== END ==
PROVIDERS: PCP Family Medicine; Referring Provider Family Medicine; Visit Provider Family Medicine
DX: M75.92 Shoulder lesion, unspecified, left shoulder (principal); M62.512 Muscle wasting and atrophy, not elsewhere classified, left shoulder; M25.512 Pain in left shoulder
CPT/HCPCS: 76882

== ENCOUNTER 2024-12-20 10:58 | Day surgery (SDC) | payer MEDICARE, OTHER, SELFPAY ==
[2024-12-20] MEDS: LACTATED RINGERS 1,000 ML 42 ML IV (11:18)
[2024-12-20 11:27] VITALS: BP 137/80; PULSE 83; RESP 17; TEMP 36.1; O2SAT 99
--- NOTE | 2024-12-20 11:36 | PM.HP.IH.1 ---
History of Present Illness History of Present Illness Date Patient Seen: 12/20/24 Chief complaint: Screening Colonoscopy [facility] Medical History Scoliosis History of PSVT (paroxysmal supraventricular tachycardia) Stenosis of innominate vein (2015) Arthritis RLS (restless legs syndrome) DDD (degenerative disc disease) Lumbar spinal stenosis Metatarsal fracture (1995) Foot pain Mumps Measles Chicken pox Abnormally prolonged clotting time Macular degeneration (1991) Tinnitus Rupture of tympanic membrane Painful menstrual periods History of heavy periods Endometriosis Abnormal Pap smear of cervix (~1999) Stress incontinence Hemorrhoids (1988) SA node dysfunction Sinus bradycardia Complete AV block Bradycardia Cardiac arrhythmia (~1971) Surgical History History of total left knee replacement Anesthesia Status post removal of cervix Elective replacement indicated for cardiac pacemaker battery at end of lifespan (10/2015) Status post placement of cardiac pacemaker (06/2010) Status post placement of implantable loop recorder (11/2009) Status post arthroscopy Status post laparoscopic cholecystectomy (1997) Family History Father Recurrent incisional hernia with complication Grandfather Brain aneurysm Grandmother Diabetes mellitus Mother Fractured hip Sepsis Diabetes mellitus Grandfather CVA (cerebral vascular accident) Grandmother Stomach cancer Social History household members: spouse alcohol intake: current Meds Home Medications and Allergies Home Medications Medication Instructions Recorded Confirmed Type CHOLECALCIFEROL (VITAMIN D) 3,000 iu PO QDAY ##0 07/24/11 06/30/24 History Metoprolol Tartrate (LOPRESSOR) 12.5 mg PO QDAY ##0 07/24/11 06/30/24 History CALCIUM/PHYTONADIONE/SODIUM/ 1 ctb PO QDAY ##0 12/31/11 06/30/24 History (#VIACTIV CALCIUM) VITAMIN B COMPLEX (Vitamin B 1 tab PO QDAY ##0 11/14/12 06/30/24 History Complex) ascorbic acid (vitamin C) 500 mg 500 mg PO QDAY ##0 11/14/12 06/30/24 History tablet vitamins A,C,H-sana-ccmuwl 4,296 1 cap PO BID 01/04/19 06/30/24 History mcg-226 mg-90 mg capsule (PreserVision AREDS) Chondroitin Sulfate/Glucosam 1,500 cap PO QDAY ##0 04/23/20 06/30/24 History (GLUCOSAMINE/CHONDROITIN) OMEGA-3 FATTY ACIDS/STEVIA E 1 mg PO BID ##0 04/23/20 06/30/24 History (#CORJULIO CESARGA OMEGA-3 12 MG-650 MG-10 MG-3 IU) cyclosporine 0.05 % eye drops drp EYE-BOTH 10/09/21 06/30/24 History (Restasis MultiDose) amoxicillin 875 mg-potassium 1 tab PO BID #20 tabs 06/30/24 12/20/24 Rx clavulanate 125 mg tablet azithromycin 250 mg tablet See Rx Instructions PO .COMPLEX #6 06/30/24 06/30/24 Rx tabs doxycycline hyclate 100 mg capsule mg PO 06/30/24 06/30/24 History metoprolol tartrate 25 mg tablet 12.5 mg PO DAILY 06/30/24 12/20/24 History metronidazole 0.75 % topical cream applic topical BID 06/30/24 06/30/24 History Allergies Allergy/AdvReac Type Severity Reaction Status Date / Time avocado Allergy Severe Anaphylaxis Verified 06/30/24 09:55 Iodinated Contrast Media Allergy Severe ANAPHYLAXIS Verified 06/30/24 09:55 [Iodinated Contrast Media - IV Dye] monosodium glutamate Allergy Severe ANAPHYLAXIS Verified 06/30/24 09:55 shellfish derived Allergy Severe Anaphylaxis Verified 06/30/24 09:55 oxymetazoline Allergy Mild difficulty Verified 06/30/24 09:55 [From AFRIN (OXYMETAZOLINE)] breathing mannitol [From Reclast] AdvReac Severe riggers Verified 06/30/24 09:55 zoledronic acid AdvReac Severe riggers Verified 06/30/24 09:55 [From Reclast] epinephrine AdvReac Intermediate HEART GOES Verified 06/30/24 09:55 TO FAST morphine AdvReac Intermediate Anxiety Verified 06/30/24 09:55 codeine AdvReac Mild GI Verified 06/30/24 09:55 INTOLERANCE erythromycin base AdvReac Mild GI Verified 06/30/24 09:55 INTOLERANCE Penicillins AdvReac Mild GI Verified 06/30/24 09:55 INTOLERANCE hydrocodone AdvReac Unknown GI, Verified 06/30/24 09:55 DIZZINESS Exam Narrative Exam Narrative: Oropharynx free of lesions Chest clear to auscultation percussion Cardiac exam reveals no S3 or murmur Assessment & Plan Assessment & Plan narrative: Screening colonoscopy in 10 year interval. Risks, benefits, alternatives have been explained. Time-Based Coding :: [TOTAL MINUTES] spent with patient and on the chart (including review of chart, obtaining history, exam, reviewing outside data, placing orders, documenting exam and treatment plan, and counseling patient) on [DATE]. 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
--- NOTE | 2024-12-20 11:37 | PM.OP.COLON ---
Operative Date/Time/Diagnoses Date of procedure: 12/20/24 Time of procedure: 12:37 Pre-op diagnosis: See indication and findings Post-op diagnosis: same Procedure & Clinicians Study performed: Colonoscopy Same procedure as scheduled: Yes Indications: Screening Surgeon: Jenifer Foreman Procedure Notes Procedure in detail: After informed consent was obtained the patient was placed in left lateral decubitus position. The video colonoscope was introduced the rectum slowly advanced cecum. On slow withdrawal mucosa was carefully examined. Preparation was good. The scope was removed. The patient tolerated the procedure well. Blood loss none Complications none Sedation mac Findings 1. Normal colonoscopy to cecum Patient might consider colonoscopy in 5-10 years if in excellent health
[2024-12-20 12:40] VITALS: BP 105/55; PULSE 67; RESP 18; TEMP 36.7; O2SAT 99
[2024-12-20 12:45] VITALS: BP 105/55; PULSE 63; RESP 15; TEMP 36.7; O2SAT 99
[2024-12-20 12:55] VITALS: BP 115/65; PULSE 60; RESP 15; TEMP 36.7; O2SAT 99
== END 2024-12-20 13:12 | disposition home or self-care (01) ==
PROVIDERS: PCP Family Medicine; Referring Provider Internal Medicine Gastroenterology; Visit Provider Internal Medicine Gastroenterology
PROC: 0DJD8ZZ Inspection of Lower Intestinal Tract, Via Natural or Artificial Opening Endoscopic (ICD-10-PCS; CPT 45378; principal; 2024-12-20 12:00)
DX: Z12.11 Encounter for screening for malignant neoplasm of colon (principal)
CPT/HCPCS: G0121; J2704

== ENCOUNTER → 2025-01-15 10:47 | Outpatient (CLI) | payer MEDICARE, OTHER, SELFPAY ==
--- NOTE | 2025-01-15 10:48 | DI.CT.S_ITS ---
PROCEDURE: CT CHEST WO CON INDICATIONS: stable pulm nodule f/u, 2 yr f/u TECHNIQUE: Noncontrast 2.0-2.5 mm thick sections acquired from the pulmonary apices to the posterior costophrenic angles. 7 mm thick axial MIP and 5 mm coronal and sagittal reformats were then acquired. For radiation dose reduction, the following was used: automated exposure control, adjustment of mA and/or kV according to patient size. COMPARISON: [facility], CT, CT CHEST WO CON, 12/26/2022, 13:06. FINDINGS: Image quality: Diagnostic. Lower Neck: No enlarged lymph nodes. Thyroid: No thyroid nodules which require sonographic follow up, per consensus guidelines. Axillae: No enlarged lymph nodes. Chest Wall: Left chest wall pacemaker is seen. Bones: No aggressive appearing bony lesions. Lungs and Pleura: No pneumothorax or pleural effusions. Previously described indistinct 9 mm ground-glass density nodule in lateral left upper lobe now measures approximately 7 mm in size series 3, image 103. No new suspicious pulmonary nodule is seen. No acute airspace opacities. Heart: Heart size is normal. No pericardial effusion. Pacemaker leads are seen in right atrium and right ventricle. Thoracic Vessels: The aorta and pulmonary arteries demonstrate normal size. Mediastinum and Shanna: No enlarged lymph nodes. Esophagus: No wall thickening. No hiatal hernia. Upper Abdomen: Visualized upper abdomen solid organs and bowel loops appear normal. IMPRESSION: 1. Patient's known sub cm ground-glass density nodule in left upper lobe now measures 7 mm in size. Finding is suggestive of benign process. No additional follow-up is indicated at this time. 2. No new pulmonary nodule or suspicious adenopathy. Left chest wall pacemaker in place. Fleischner Society criteria for SOLID lung nodule followup. Nodule size (mm)Low-risk patientHigh-risk patient<6 (single or multiple)No routine followup.Optional CT at 12 months. 6-8 (single or multiple)CT at 6-12 months, then optional CT at 18-24 mo.CT at 6-12 months, then CT at 18-24 months. >8 (single)CT at 3 months, PET-CT, or biopsy. Same as for low-risk pts. >8 (multiple)CT at 3-6 months, then optional CT at 18-24 mo.CT at 3-6 months, then CT at 18-24 months. Fleischner Society criteria for SUB-SOLID lung nodule followup. Solitary pure ground-glass nodules<6 mm (ground glass or part solid)No followup needed. 6 mm or larger (ground glass)CT at 6-12 months to confirm persistence, then CT every 2 years until 5 years.6 mm or larger (part solid)CT at 3-6 months to confirm persistence, then annual CT until 5 years if unchanged and solid component remains <6 mm. Multiple sub-solid nodules<6 mmCT at 3-6 months, then CT consider at 2 & 4 years for high risk patients. [address] at 3-6 months. Subsequent management based on most suspicious lesions. Recommendations do not apply to lung cancer screening, patients with immunosuppression, or patients with known primary cancer. Dictated by: Israel Bruce M.D. on 01/15/2025 at 20:29 Approved by: Israel Bruce M.D. on 01/15/2025 at 20:37
== END ==
LOC: CT 10:47
PROVIDERS: PCP Family Medicine; Referring Provider Family Medicine; Visit Provider Family Medicine
DX: R91.1 Solitary pulmonary nodule (principal); Z95.0 Presence of cardiac pacemaker
CPT/HCPCS: 71250

== ENCOUNTER → 2025-01-27 09:21 | Outpatient (CLI) | payer MEDICARE, OTHER, SELFPAY ==
[2025-01-27 10:04] LABS: Add Manual Diff / Slide Review NO; Basophils Absolute Auto 100 /uL (0-100); Basophils Percent Auto 1.2 % (0-2); Eosinophils Absolute Auto 200 /uL (0-450); Eosinophils Percent Auto 2.9 % (2-4); Hematocrit 37.7 % (36-46); Hemoglobin 12.9 g/dL (12.0-16.0); Lymphocytes Absolute Auto 1800 /uL (1100-4500); Lymphocytes Percent Auto 26.9 % (25-40); Mean Corpuscular HGB Conc 34.2 % (30-36); Mean Corpuscular Hemoglobin 30.1 PG (26-34); Mean Corpuscular Volume 88.2 fL (80-100); Monocytes Absolute Auto 500 /uL (0-900); Monocytes Percent Auto 6.9 % (3-14); Neutrophils Absolute Auto 4000 /uL (1500-7000); Neutrophils Percent Auto 62.1 % (50-75); Platelet Count 232 X10^3/uL (150-400); Red Blood Cell Count 4.27 X10^6/uL (4.0-5.2); Red Cell Distribution Width 13.4 % (11.6-14.8); White Blood Cell Count 6.5 X10^3/uL (4.5-11.0)
[2025-01-27 10:26] LABS: Alanine Aminotransferase 20 IU/L (<35); Albumin 4.5 g/dL (3.5-5.0); Albumin Globulin Ratio 1.8 (1.0-2.8); Alkaline Phosphatase 59 U/L (38-126); Aspartate Aminotransferase 29 IU/L (14-36); Bilirubin Total 1.2 mg/dL (0.2-1.3); Blood Urea Nitrogen 18 mg/dL (7-17); Calcium 9.6 mg/dL (8.4-10.2); Carbon Dioxide 26 mmol/L (22-32); Chloride 100 mmol/L (98-107); Cholesterol 200 mg/dL (140-199); Estimated Glomerular Filt Rate > 60 mL/min (>60); Globulin 2.5 g/dL (1.7-4.1); Glucose 90 mg/dL (70-99); HDL Cholesterol 95 mg/dL (40-60); HEMOLYSIS < 15 (0-50); LDL Cholesterol Calculated 92 mg/dL (<100); Potassium 4.1 mmol/L (3.4-5.1); Sodium 134 mmol/L (137-145); Triglycerides 64 mg/dL (35-150)
[2025-01-27 10:29] LABS: Creatinine Urine Random 77.48 mg/dL
[2025-01-27 10:43] LABS: Microalbumin Urine Random < 0.6 mg/dL (0-1.6)
[2025-01-27 10:53] LABS: TSH w/ Reflex to FT4 1.96 uIU/mL (0.47-4.68)
[2025-01-27 15:22] LABS: Hep C Virus Ab w/Reflex Quant NEGATIVE s/c (NEGATIVE); Rubella Antibody IgG > 350.0 IU/mL (>15)
[2025-01-28 09:08] LABS: Rubeola Measles IgG > 300.0 AU/mL (Immune >16.4)
[2025-01-29 13:38] LABS: Mumps Virus IgG Antibody >300.0 AU/mL (Immune >10.9)
== END ==
PROVIDERS: PCP Family Medicine; Referring Provider Family Medicine; Visit Provider Family Medicine
DX: Z01.84 Encounter for antibody response examination (principal); I49.5 Sick sinus syndrome; R79.89 Other specified abnormal findings of blood chemistry; M85.80 Other specified disorders of bone density and structure, unspecified site; Z95.0 Presence of cardiac pacemaker
CPT/HCPCS: 36415; 80053; 80061; 82043; 82570; 84443; 85025; 86735; 86762; 86765; 86803

== ENCOUNTER → 2025-02-26 10:43 | Outpatient (CLI) | payer MEDICARE, OTHER, SELFPAY ==
--- NOTE | 2025-02-26 10:44 | DI.RAD.S_ITS ---
PROCEDURE: XR FOOT RT MIN 3V INDICATIONS: worsening mod-sev heel pain TECHNIQUE: 3 views of the foot were acquired. COMPARISON: [facility], , FOOT 3V RIGHT, 03/05/2017, 16:11. FINDINGS: Bones: No acute fractures or dislocations. No suspicious bony lesions. There are severe degenerative changes of the right 1st metatarsophalangeal joint with associated marginal osteophyte formation and new subcortical lucency involving the lateral margin at the head of the 1st metatarsal. Subcortical lucencies involving the medial margin of the head of the 1st metatarsal are not significantly changed. Plantar calcaneal and retrocalcaneal enthesophytes. Degenerative changes of the dorsal midfoot. Soft tissues: No tibiotalar joint effusion. Achilles tendon appears normal. Persistent soft tissue swelling around the 1st metatarsophalangeal joint. IMPRESSION: Right foot without acute fracture or dislocation. 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 Subchondral lucency involving the lateral head of the 1st metatarsal likely related to subchondral degenerative cyst. Prominent plantar calcaneal enthesophyte. Tiny retrocalcaneal enthesophyte. Dictated by: Urbano Shin M.D. on 02/26/2025 at 16:04 Approved by: Urbano Shin M.D. on 02/26/2025 at 16:06
== END ==
PROVIDERS: PCP Family Medicine; Referring Provider Family Medicine; Visit Provider Family Medicine
DX: M79.671 Pain in right foot (principal); M77.31 Calcaneal spur, right foot
CPT/HCPCS: 73630

== ENCOUNTER → 2025-06-13 11:52 | Outpatient (CLI) | payer MEDICARE, OTHER, SELFPAY ==
--- NOTE | 2025-06-13 11:55 | DI.RAD.S_ITS ---
PROCEDURE: XR DEXA AXIAL SKELETON
== END ==
LOC: RAD 11:54
PROVIDERS: PCP Family Medicine; Referring Provider Family Medicine; Visit Provider Family Medicine
DX: M85.89 Other specified disorders of bone density and structure, multiple sites (principal)
CPT/HCPCS: 77080

== ENCOUNTER → 2025-06-26 15:17 | Outpatient (CLI) | payer MEDICARE, OTHER, SELFPAY ==
--- NOTE | 2025-06-26 15:18 | DI.MG.S_ITS ---
MM screening mammo BI: 06/26/2025. BI-RADS: 1 CLINICAL: 75-year old female for bilateral screening mammogram. Tyrer-Cuzick lifetime risk of 4.1%. No personal or first-degree family history of breast cancer. PRIOR EXAMS 06/22/2024, 06/10/2023, 06/05/2022, 06/03/2021, 05/07/2021. MAMMOGRAPHY TECHNIQUE: 2D and 3D (tomosynthesis) digital mammographic views obtained, with additional images as needed for full coverage. Current study was also evaluated with a Computer Aided Detection (CAD) system. DENSITY C. The breasts are heterogeneously dense, which may obscure small masses. MAMMOGRAPHY FINDINGS Bilateral: No suspicious mass, asymmetry, microcalcification, or other abnormality seen. IMPRESSION: * No evidence of malignancy. RECOMMENDATIONS Bilateral * Annual screening mammography. OVERALL ASSESSMENT CATEGORY BI-RADS-1: Negative. The [employer] recommends annual screening mammography beginning at age 40 for women with average risk of breast cancer. ELECTRONICALLY SIGNED: Urbano Shin M.D. on 06/27/2025 at 09:47:58 AM PT Interpreting Station ID: [id number]
== END ==
LOC: MAMMO 15:18
PROVIDERS: PCP Family Medicine; Referring Provider Family Medicine; Visit Provider Family Medicine
DX: Z12.31 Encounter for screening mammogram for malignant neoplasm of breast (principal); R92.333 Mammographic heterogeneous density, bilateral breasts
CPT/HCPCS: 77063; 77067